=== PATIENT | female | born 1975 | race Caucasian/White ===

== ENCOUNTER 2023-10-04 08:46 | Emergency (ER) | payer OTHER, SELFPAY ==
[2023-10-04 08:50] VITALS: BP 130/102; PULSE 55; RESP 20; TEMP 36.7; O2SAT 99; BMI 46.1
[2023-10-04 08:56] VITALS: BP 140/80
--- NOTE | 2023-10-04 09:31 | CT_ITS ---
[place] [address], [place] [address] Patient Name: ESME ERICKSON MRN: [id number] date: 1975 Sex: F Assigned Patient Location: ER Current Patient Location: .[facility] Accession/Order Number: [id number] Exam Date: 10/04/2023 10:20 Report Date: 10/04/2023 10:52 At the request of: NICOLE STEVENS Procedure: CT abdomen pelvis w con EXAMINATION: CT abdomen pelvis w con HISTORY: abd pain , abdominal cramping, diarrhea, bloody stool COMPARISON: No relevant comparison available. TECHNIQUE: CT images were created with IV contrast. Axial, Coronal, and Sagittal images. Dose reduction techniques were achieved by using automated exposure control and/or adjustment of mA and/or kV according to patient size and/or use of iterative reconstruction technique. FINDINGS: LUNG BASES: No visible pulmonary or pleural disease. LIVER: No enlargement, atrophy, abnormal density, or significant focal lesion. BILIARY: No visible dilatation or calcification. PANCREAS: No lesion, fluid collection, ductal dilatation, or atrophy. SPLEEN: No enlargement or focal lesion. ADRENALS: No mass or enlargement. KIDNEYS: No mass, obstruction, or calcification. BOWEL/MESENTERY: Some mild wall thickening of the mid to distal transverse colon and descending colon, this part of the bowel is not distended nonobstructive bowel gas pattern. AORTA/VASCULAR: No aneurysm or dissection. RETROPERITONEUM: No mass or adenopathy. LYMPH NODES: No adenopathy. URINARY BLADDER: No visible focal wall thickening, lesion, or calculus. PELVIC ORGANS: Hysterectomy. 1.9 cm left adnexal cyst ABDOMINAL WALL: No mass or hernia. BONES: No bony lesion or fracture. OTHER: Negative. CT/CT abdomen pelvis w con IMPRESSION: Mild wall thickening of the transverse and descending colon. Consider inflammatory or infectious colitis Electronically authenticated by: ANTONI FERNANDEZ Date: 10/04/2023 10:52
[2023-10-04] MEDS: MORPHINE SULFATE 4 MG/ML VIAL IV (09:36)
[2023-10-04] MEDS: 0.9 % SODIUM CHLORIDE 1,000 ML 999 ML IV (09:36)
[2023-10-04] MEDS: ONDANSETRON PF 4 MG/2 ML VIAL IV (09:36)
[2023-10-04] MEDS: DICYCLOMINE HCL 20 MG/2 ML VIAL IM (09:37)
[2023-10-04 09:53] LABS: Basophils Absolute Auto 0.1 10^3/uL (0.0-0.1); Basophils Percent Auto 0.5 % (0.2-2.0); Eosinophils Absolute Auto 0.1 10^3/uL (0.0-0.7); Eosinophils Percent Auto 1.3 % (0.9-7.0); Hematocrit 41.7 % (36.0-48.0); Immature Granulocytes Abs Auto 0.03 10^3/uL (0.00-0.03); Immature Granulocytes Pct Auto 0.3 % (0.0-0.5); Lymphocytes Absolute Auto 1.9 10^3/uL (1.2-3.8); Lymphocytes Percent Auto 20.6 % (20.5-60.0); Mean Corpuscular HGB Conc 33.6 g/dL (29.9-35.2); Mean Corpuscular Hemoglobin 32.2 pg (26.7-34.0); Mean Corpuscular Volume 95.9 fL (81.0-99.0); Mean Platelet Volume 11.1 fL (9.5-13.5); Monocytes Absolute Auto 0.4 10^3/uL (0.3-0.8); Monocytes Percent Auto 4.8 % (1.7-12.0); Neutrophils Absolute Auto 6.7 10^3/uL (1.4-6.5); Neutrophils Percent Auto 72.5 % (43.0-75.0); Platelet Count 249 10^3/uL (150-450); Red Blood Count 4.35 10^6/uL (4.20-5.40); Red Cell Distribution Width 11.5 % (11.0-15.0); White Blood Count 9.2 10^3/uL (4.0-11.0)
[2023-10-04 10:06] LABS: Alanine Aminotransferase 23 U/L (14-59); Albumin Globulin Ratio 0.9; Albumin Level 3.5 g/dL (3.4-5.0); Alkaline Phosphatase 81 U/L (46-116); Aspartate Amino Transferase 12 U/L (15-37); BUN Creatinine Ratio 12.1; Bilirubin Total 0.5 mg/dL (0.2-1.0); Calcium 8.7 mg/dL (8.5-10.1); Chloride 104 mmol/L (98-107); Estimated GFR (African America >60 (>=60); Estimated GFR (Non-African Ame 55 (>=60); Globulin 3.7 g/dL; Glucose 92 mg/dL (74-106); Sodium 140 mmol/L (136-145); Total Protein 7.2 g/dL (6.4-8.2)
[2023-10-04 10:09] LABS: Lactate/Lactic Acid 1.5 mmol/L (0.4-2.0)
--- NOTE | 2023-10-04 10:37 | ED.GENADUL1 ---
HPI - General Adult General Chief complaint: Abdominal Pain Stated complaint: STOMACH PAIN Time Seen by Provider: 10/04/23 09:22 Source: patient Mode of arrival: walk-in Limitations: no limitations History of Present Illness HPI narrative: Patient is a 48-year-old female who is presenting to the ER today with chief complaint of 3 episodes of bloody stool. Patient's had no recent fall, traumas, no foreign bodies or any type of trauma to the anus. Patient is having intermittent abdominal cramping. No bowel movement yesterday, she did have soft stool 2 days ago. Mild nausea no vomiting. Patient does have her gallbladder, she does not have her appendix, uterus or ovaries. No fever or chills. No urinary frequency, urgency, burning. Patient did have bloody stools approximately 20 years ago, she had a colonoscopy at that time with no acute findings. Patient is having loose stool today. Patient has no hemorrhoids that she is aware of. No other acute complaints. All systems are negative except as noted/marked. All systems reviewed and otherwise negative. Nurses note and vital signs reviewed and patient is not hypoxic. General: The patient appears well and in no apparent distress. Patient is resting comfortably on cart. Patient is not toxic, lethargic, or listless Skin: Warm, dry, no pallor noted. There is no rash noted. No petechiae, purpura. Head: Normocephalic, atraumatic Eye: Normal conjunctiva, no drainage, EOMI. PERRL Ears, Nose, Mouth, and Throat: oral mucosa is moist. Nares patent. Mouth without vesicles. Cardiovascular: Regular Rate and Rhythm, no murmur, gallop, rub Respiratory: Patient is in no distress, no accessory muscle use, lungs are clear to auscultation, no wheezing, rales or rhonchi Back: non-tender, no CVA tenderness bilaterally to percussion. No CT LS midline pain GI: Obese, soft, mild diffuse tenderness to palpation, hypoactive bowel sounds x 4, no suprapubic tenderness to palpation, no masses appreciated. No rebound, guarding, or rigidity noted. No distention Musculoskeletal: Patient has full range of motion of all of the extremities, no motor, sensory, or focal neurological deficits Neurological: A&O x4, normal speech Psychiatric: Cooperative Related Data Home Medications Medication Instructions Recorded Confirmed atenolol 50 mg tablet 50 mg PO Q24H 10/04/23 10/04/23 cholecalciferol (vitamin D3) 125 10,000 unit PO DAILY 10/04/23 10/04/23 mcg (5,000 unit) capsule famotidine 20 mg tablet 20 mg PO Q12H 10/04/23 10/04/23 levothyroxine 25 mcg tablet 25 mcg PO DAILY 10/04/23 10/04/23 loratadine 10 mg tablet (Claritin) 10 mg PO DAILY 10/04/23 10/04/23 Previous Rx's Medication Instructions Recorded dicyclomine 20 mg tablet 20 mg PO TID PRN abdominal pain #7 10/04/23 tabs ondansetron 4 mg disintegrating 4 mg PO Q4H PRN nausea and 10/04/23 tablet vomiting 3 days #6 tabs Allergies Allergy/AdvReac Type Severity Reaction Status Date / Time gabapentin [From Neurontin] Allergy Intermediate Verified 10/04/23 08:54 PFSH PFSH Social History Smoking status: Former smoker Exam Constitutional Vital Signs, click to edit/add: Last Vital Signs Temp 98.1 F 10/04/23 08:50 Pulse 55 L 10/04/23 08:50 Resp 20 10/04/23 08:50 BP 140/80 10/04/23 08:56 Pulse Ox 99 10/04/23 08:50 O2 Del Method Room Air 10/04/23 08:50 Course Vital Signs Vital signs: Vital Signs Temperature 98.1 F 10/04/23 08:50 Pulse Rate 55 L 10/04/23 08:50 Respiratory Rate 20 10/04/23 08:50 Blood Pressure 130/102 H 10/04/23 08:50 Pulse Oximetry 99 10/04/23 08:50 Oxygen Delivery Method Room Air 10/04/23 08:50 Temperature 98.1 F 10/04/23 08:50 Pulse Rate 55 L 10/04/23 08:50 Respiratory Rate 20 10/04/23 08:50 Blood Pressure 140/80 10/04/23 08:56 Pulse Oximetry 99 10/04/23 08:50 Oxygen Delivery Method Room Air 10/04/23 08:50 Medical Decision Making MDM Narrative Medical decision making narrative: Rectal exam: Chio HERNANDEZ was at bedside during the entire exam. Patient has 2 very small tiny hemorrhoids at the 6:00 and 8 o'clock position, no signs of fissure, fistula, no tears, no signs of trauma. No stool was obtained during rectal exam, Hemoccult was done. CT of the abdomen pelvis shows questionable infectious versus inflammatory colitis. Lab work, urine, lab testing shows no acute findings. Patient was given a copy of her CT report. There is no acute indication for steroids or antibiotics at this time. Patient will follow-up with PCP, patient has been referred to Dr. Sanders as well. At discharge patient abdomen is soft, mild diffuse tenderness palpation, no other acute findings, patient understands discharge plan in summary Lab Data Labs: Lab Results 10/04/23 10/04/23 Range/Units 09:44 10:07 WBC 9.2 (4.0-11.0) 10^3/uL RBC 4.35 (4.20-5.40) 10^6/uL Hgb 14.0 (12.0-16.0) g/dL Hct 41.7 (36.0-48.0) % MCV 95.9 (81.0-99.0) fL MCH 32.2 (26.7-34.0) pg MCHC 33.6 (29.9-35.2) g/dL RDW 11.5 (11.0-15.0) % Plt Count 249 (150-450) 10^3/uL MPV 11.1 (9.5-13.5) fL Neut % (Auto) 72.5 (43.0-75.0) % Lymph % (Auto) 20.6 (20.5-60.0) % [place] % (Auto) 4.8 (1.7-12.0) % Eos % (Auto) 1.3 (0.9-7.0) % Baso % (Auto) 0.5 (0.2-2.0) % Neut # (Auto) 6.7 H (1.4-6.5) 10^3/uL Lymph # (Auto) 1.9 (1.2-3.8) 10^3/uL [place] # (Auto) 0.4 (0.3-0.8) 10^3/uL Eos # (Auto) 0.1 (0.0-0.7) 10^3/uL Baso # (Auto) 0.1 (0.0-0.1) 10^3/uL Abs Immat Gran (auto) 0.03 (0.00-0.03) 10^3/uL Imm/Tot Granulo (auto) 0.3 (0.0-0.5) % Sodium 140 (136-145) mmol/L Potassium 4.0 (3.5-5.1) mmol/L Chloride 104 (98-107) mmol/L Carbon Dioxide 30.0 (21.0-32.0) mmol/L Anion Gap 10.0 BUN 13.0 (7.0-18.0) mg/dL Creatinine 1.07 H (0.55-1.02) mg/dL Est GFR ( Amer) >60 (>=60) Est GFR (Non-Af Amer) 55 L (>=60) BUN/Creatinine Ratio 12.1 Glucose 92 (74-106) mg/dL Lactate 1.5 (0.4-2.0) mmol/L Calcium 8.7 (8.5-10.1) mg/dL Total Bilirubin 0.5 (0.2-1.0) mg/dL AST 12 L (15-37) U/L ALT 23 (14-59) U/L Alkaline Phosphatase 81 (46-116) U/L Total Protein 7.2 (6.4-8.2) g/dL Albumin 3.5 (3.4-5.0) g/dL Globulin 3.7 g/dL Albumin/Globulin Ratio 0.9 Lipase 22.0 (16.0-77.0) U/L Urine Color Lt. yellow (YELLOW) Urine Clarity Clear (CLEAR) Urine pH 7.0 (5.0-9.0) Ur Specific [place] 1.015 (1.005-1.025) Urine Protein Negative (NEG/TRACE) mg/dL Urine Glucose (UA) Negative (NEGATIVE) mg/dL Urine Ketones Negative (NEGATIVE) mg/dL Urine Occult Blood Negative (NEGATIVE) Urine Nitrite Negative (NEGATIVE) Urine Bilirubin Negative (NEGATIVE) Urine Urobilinogen 0.2 (0.2-1.0) EU/dL Ur Leukocyte Esterase Negative (NEGATIVE) Urine RBC None seen (0-2) #/HPF Urine WBC None seen (NONE SEEN) #/HPF Ur Squamous Epith Cells Few A (NONE/RARE) #/LPF Urine Crystals None seen (None Seen) #/HPF Urine Bacteria Trace A (NONE SEEN) #/HPF Urine Casts None seen (NONE SEEN) #/LPF Urine Mucus None seen (NONE SEEN) Discharge Plan Discharge Chief Complaint: Abdominal Pain Clinical Impression: Colitis, External hemorrhoid, Rectal bleeding, Abdominal pain Patient Disposition: Home, Self-Care Condition: Fair Prescriptions / Home Meds: New dicyclomine 20 mg tablet 20 mg PO TID PRN (Reason: abdominal pain) Qty: 7 0RF ondansetron 4 mg tablet,disintegrating 4 mg PO Q4H PRN (Reason: nausea and vomiting) 3 Days Qty: 6 0RF No Action atenolol 50 mg tablet 50 mg PO Q24H cholecalciferol (vitamin D3) 125 mcg (5,000 unit) capsule 10,000 unit PO DAILY famotidine 20 mg tablet 20 mg PO Q12H levothyroxine 25 mcg tablet 25 mcg PO DAILY loratadine [Claritin] 10 mg tablet 10 mg PO DAILY Instructions: Hemorrhoids (ED), Rectal Bleeding (ED), Abdominal Pain (ED), Colitis (ED) Additional Instructions: Increase fluid at home. No acute indication for antibiotics or steroids at this time. Follow-up with your PCP, Dr. Burch has also been referred to you as well if you need to have another colonoscopy. Use Zofran for nausea and Bentyl for abdominal cramping if needed. He had 2 very small tiny hemorrhoids externally, education was given to you. Follow up with your PCP if any other acute concerns. Referrals: ENRRIQUE BARRIOS [Primary Care Provider] - 1 week Stand Alone Forms: Portal Instructions
[2023-10-04 10:39] LABS: Bilirubin Urine NEGATIVE (NEGATIVE); Blood Urine NEGATIVE (NEGATIVE); Clarity Urine CLEAR (CLEAR); Color Urine LT. YELLOW (YELLOW); Glucose Urine UA NEGATIVE (NEGATIVE); Ketones Urine NEGATIVE (NEGATIVE); Leukocyte Esterase Urine NEGATIVE (NEGATIVE); Nitrite Urine NEGATIVE (NEGATIVE); Protein Urine NEGATIVE (NEG/TRACE); Specific Gravity Urine 1.015 (1.005-1.025); Urobilinogen Urine 0.2 EU/dL (0.2-1.0)
[2023-10-04 10:44] LABS: Bacteria Urine TRACE #/HPF (NONE SEEN); Cast Seen? NONE SEEN #/LPF (NONE SEEN); Crystals Seen? None Seen #/HPF (None Seen); Mucus Urine NONE SEEN (NONE SEEN); RBC Urine NONE SEEN #/HPF (0-2); Squamous Epithelial Cell Urine FEW #/LPF (NONE/RARE); WBC Urine NONE SEEN #/HPF (NONE SEEN)
== END 2023-10-04 12:23 | disposition home or self-care (01) ==
PROVIDERS: Emergency Provider Emergency Medicine; PCP Nurse Practitioner Family
DX: K52.9 Noninfective gastroenteritis and colitis, unspecified (principal); K64.4 Residual hemorrhoidal skin tags; R10.9 Unspecified abdominal pain; K62.5 Hemorrhage of anus and rectum; Z79.899 Other long term (current) drug therapy; Z79.890 Hormone replacement therapy; Z87.891 Personal history of nicotine dependence
CPT/HCPCS: 36415; 74177; 80053; 81001; 83605; 83690; 85025; 96361; 96372; 96374; 96375; 99285; J0500; Q9967

== ENCOUNTER 2025-03-24 08:42 | Outpatient (OUT) | payer OTHER, SELFPAY ==
--- NOTE | 2025-03-24 08:52 | US_ITS ---
The [address] [address] Patient Name: ESME ERICKSON MRN: [id number] date: 1975 Sex: F Assigned Patient Location: US Current Patient Location: US Accession/Order Number: [id number] Exam Date: 03/24/2025 12:48 Report Date: 03/24/2025 12:48 At the request of: HUMBERTO SINCLAIR NP Procedure: US renal BI Bilateral Renal Ultrasound HISTORY: Bilateral flank pain greater on the right COMPARISON: None RIGHT kidney measures 10.8 cm. LEFT kidney measures 11.4 cm. Hydronephrosis: None RENAL STONE: No shadowing renal calculus is seen. RENAL LESIONS: No renal lesion identified. URINARY BLADDER: Unremarkable REPRODUCTIVE STRUCTURES Not assessed IMPRESSION : No hydronephrosis. Impression dictated by: Brooks Morillo M.D. 03/24/2025 12:48 PM Dictation Location: [place] [address] Electronically authenticated by: [id number] Y Date: 03/24/2025 12:48
--- OUTSIDE RECORDS SUMMARY | 2025-03-24 08:53 | XMS_ITS | CCD ---
Author Organization [facility]ini[facility]ms Care Team Providers Care Front Desk Name Role Phone KAJAL CHIN Consulting Unavailable KAJAL CHIN Attending Unavailable DR NORMA DRAKE Primary Care Unavailable KAJAL CHIN Admitting Unavailable THEO LÓPEZ Unavailable Lillianalong Asher ACEVES Primary Care Provider DEYANIRA AGUILAR Attending Unavailable ASHER MAE Primary Care Unavailab le Asher Mae DO Primary Care Provider NORMA DRAKE Attending Unavailable LILLIANALONGASHER Referring Unavailable FURLONG, ASHER G Primary Care Unavailable NIECY NATHAN Attending Unavailable NORMA DRAKE Referring Unavailable FURLONG, ASHER G Primary Care Unavailable FURLONG, ASHER Proctor Referring Unavailable FURLONG, ASHER G Primary Care Unavailable FURLONGASHER G Attending Unavailable LILLIANALONGASHER G Attending Unavailable LILLIANALONG, ASHER G Referring Unavailable FURLONG, ASHER G Primary Care Unavailable ELENA BOYD Attending Unavailable PAULIENGASHER G Referring Unavailable FURLONG, ASHER G Primary Care Unavailable NORMA DRAKE Referring Unavailable FURLONG, ASHER G Primary Care Unavailable FURLONG, ASHER G Referring Unavailable FURLONG, ASHER G Primary Care Unavailable ELENA BOYD Referring Unavailable FURLONG, ASHER G Primary Care Unavailable FURLONG, ASHER G Referring Unavailable FURLONG, ASHER G Primary Care Unavailable CHATO LANE Admitting Unavailable CHATO LANE Attending Unavailable CHATO LANE Referring Unavailable LILLIANALONG, ASHER G Primary Care Unavailable CHATO LANE Attending Unavailable CHATO LANE Referring Unavailable FURLONG, ASHER G Primary Care Unavailable ANTONI MENCHACA Attending Unavailable FURLONG, ASHER G Primary Care Unavailable FURLONG, ASHER G Primary Care Unavailable GONZALEZ FREEMAN Attending Unavailable Asher Mae DO Primary Care Provider AYAKA PRESTON Primary Care Unavailable Allergies Allergy Classification Reported Allergen(s) Allergy Type Date of Onset Reaction(s) Facility (1 source) gabapentin Drug Allergy [facility] Repository (20 sources) gabapentin; Translations: [GABAPENTIN] Drug Allergy Swelling, Facial Swelling [facility] Medications Current Medications Medication Drug Class(es) Dates Sig (Normalized) Sig (Original) atenolol 25 mg oral tablet (20 sources) beta-Adrenergic Ramiro Start: 11-15-2024 take 1 tablet by mouth once daily in the morning atenoloL (TENORMIN) 25 mg tablet TAKE 1 TABLET BY MOUTH ONCE DAILY IN THE MORNING 90 tablet 11/15/2024 Active Start: 07-06-2024 End: 11-15-2024 take 1 tablet by mouth in the morning atenoloL (TENORMIN) 25 mg tablet Take 1 tablet (25 mg total) by mouth in the morning. 90 tablet 07/06/2024 11/15/2024 Discontinued Start: 04-08-2024 End: 07-06-2024 take 0.5 tablet by mouth in the morning atenoloL (TENORMIN) 50 mg tablet Take 0.5 tablets (25 mg total) by mouth in the morning. 04/08/2024 07/06/2024 Discontinued (Reorder) Start: 06-24-2023 End: 04-08-2024 take 1 tablet by mouth in the morning atenoloL (TENORMIN) 50 mg tablet take 1 tablet by mouth in the morning 30 tablet 5 12/30/2023 04/08/2024 Discontinued cholecalciferol 0.125 mg oral capsule (20 sources) Vitamin D Start: 05-06-2023 take 2 capsules by mouth once daily cholecalciferol, vitamin D3, (VITAMIN D3) 5,000 units capsule Indications: Vitamin D deficiency, unspecified TAKE 2 CAPSULES BY MOUTH EVERY DAY 200 capsule 3 05/06/2023 Active Start: 05-06-2023 take 2 capsules by m outh once daily cholecalciferol (Vitamin D-3) 125 mcg (5000 UT) capsule Take 2 capsules (250 mcg) by mouth once daily. 05/06/2023 Active Start: 10-23-2022 End: 10-28-2023 take 1 capsule by mouth in the morning cholecalciferol, vitamin D3, 2,000 units capsule Take 1 capsule (2,000 Units total) by mouth in the morning. 100 capsule 3 10/23/2022 10/28/2023 Discontinued (Dose adjustment) famotidine 20 mg oral tablet (20 sources) Histamine-2 Receptor Antagonist Start: 06-24-2023 End: 07-06-2024 take 1 tablet by mouth in the morning, then take 1 tablet by mouth at bedtime, then take 1 tablet by mouth twice daily at bedtime famotidine (PEPCID) 20 mg tablet Take 1 tablet (20 mg total) by mouth in the morning and 1 tablet (20 mg total) before bedtime. TAKE 1 TABLET BY MOUTH TWICE DAILY (IN THE MORNING AND BEFORE BEDTIME). 60 tablet 5 07/06/2024 Active levothyroxine sodium 0.025 mg oral tablet (20 sources) l-Thyroxine Start: 11-16-2024 take 1 tablet by mouth in the morning levothyroxine (SYNTHROID, LEVOTHROID) 25 MCG tablet Take 1 tablet (25 mcg total) by mouth in the morning. 90 tablet 1 11/16/2024 Active Start: 06-24-2023 End: 11-16-2024 take 1 tablet by mouth in the morning levothyroxine (SYNTHROID, LEVOTHROID) 25 MCG tablet Take 1 tablet (25 mcg total) by mouth in the morning. 90 tablet 1 05/03/2024 11/16/2024 Discontinued (Reorder) loratadine 10 mg oral tablet (19 sources) Start: 06-24-2023 End: 07-06-2024 take 1 tablet by mouth in the morning loratadine (CLARITIN) 10 mg tablet Take 1 tablet (10 mg total) by mouth in the morning. 90 tablet 3 07/06/2024 Active nirmatrelvir-ritonavir (PAXLOVID) tablets (1 source) Start: 04-08-2024 End: 04-13-2024 nirmatrelvir-riton avir (PAXLOVID) tablets Take 3 tablets by mouth in the morning and 3 tablets before bedtime. Do all this for 5 days. For doses of 3 tablets - Take two 150 mg nirmatrelvir (pink) tablets at the same time as one 100 mg ritonavir (white) tablet per dose.. 30 tablet 04/08/2024 04/13/2024 Active sod sulf-pot chloride-mag sulf 1.479-0.188- 0.225 gram tablet (2 sources) Start: 11-18-2023 sod sulf-pot chloride-mag sulf 1.479-0.188- 0.225 gram tablet Indications: Colitis with rectal bleeding Please see instructional sheet given by physicians office. 24 tablet 11/18/2023 Active sulfamethoxazole 800 mg / trimethoprim 160 mg oral tablet (2 sources) Dihydrofolate Reductase Inhibitor Antibacterial, Sulfonamide Antimicrobial Start: 08-02-2024 End: 08-09-2024 take 1 tablet by mouth once in the morning sulfamethoxazole-t rimethoprim (BACTRIM DS) 800-160 mg per tablet Indications: Acute cystitis without hematuria Take 1 tablet by mouth in the morning and 1 tablet before bedtime. Do all this for 7 days. 14 tablet 08/02/2024 08/09/2024 Active Start: 02-19-2024 End: 02-22-2024 take 1 tablet by mouth once in the morning sulfamethoxazole-trimethoprim (BACTRIM D S) 800-160 mg per tablet Take 1 tablet by mouth in the morning and 1 tablet before bedtime. Do all this for 3 days. 6 tablet 02/19/2024 02/22/2024 Active vitamin b12 1 mg oral tablet (16 sources) Vitamin B12 Start: 10-29-2023 take 1 tablet by mouth in the morning cyanocobalamin (vitamin B-12) 1000 MCG tablet Indications: Vitamin B12 deficiency Take 1 tablet (1,000 mcg total) by mouth in the morning. 100 tablet 3 10/29/2023 Active Completed/Discontinued Medications Medication Drug Class(es) Dates Sig (Normalized) Sig (Original) dicyclomine hydrochloride 20 mg oral tablet (14 sources) Anticholinergic Start: 10-04-2023 End: 08-02-2024 dicyclomine (BENTYL) 20 mg tablet 10/04/2023 08/02/2024 Discontinued ondansetron 4 mg disintegrating oral tablet (14 sources) Serotonin-3 Receptor Antagonist Start: 10-04-2023 End: 08-02-2024 ondansetron ODT (ZOFRAN ODT) 4 mg disintegrating tablet DISSOLVE ONE TABLET ON THE TONGUE EVERY 4 HOURS NEEDED FOR 3 DAYS 10/04/2023 08/02/2024 Discontinued (Therapy completed) Problems Active Problems Problem Classification Problem Date Documented Da te Episodic/Chronic Anxiety disorders (20 sources) Generalized anxiety disorder; Translations: [Generalized anxiety disorder] Onset: 3 10-07-2022 Chronic Cardiac dysrhythmias (4 sources) Supraventricular tachycardia; Translations: [SVT (supraventricular tachycardia) ([facility])] Onset: 4 07-16-2024 Chronic Gastrointestinal hemorrhage (1 source) Gastrointestinal hemorrhage Onset: Genitourinary symptoms and ill-defined conditions (8 sources) Dysuria; Translations: [Dysuria] Onset: 4 08-02-2024 Episodic Mood disorders (17 sources) Bipolar II disorder; Translations: [Bipolar II disorder] Onset: 3 10-07-2022 Chronic Nutritional deficiencies (20 sources) Vitamin D deficiency; Translations: [Vitamin D deficiency, unspecified] Onset: 7 04-30-2022 Chronic Other nervous system disorders (2 sources) Polyneuropathy, unspecified; Translations: [Polyneuropathy, unspecified] Onset: 4 Chronic Other nervous system disorders (1 source) Neuropathy; Translations: [Polyneuropathy, unspecified] 10-28-2023 Chronic Other nutritional; endocrine; and metabolic disorders (2 sources) Body mass index 40+ - severely obese; Translations: [Body mass index (BMI) 40.0-44.9, adult] Onset: 4 07-16-2024 Chronic Other nutritional; endocrine; and metabolic disorders (2 sources) Body mass index (BMI) 40.0-44.9, adult; Translations: [Body mass index (BMI) 40.0-44.9, adult (Multi)] Onset: 4 Chronic Other nutritional; endocrine; and metabolic disorders (18 sources) Morbid obesity; Translations: [Morbid (severe) obesity due to excess calories] Onset: 3 10-24-2022 Chronic Other nutritional; endocrine; and metabolic disorders (1 source) Morbid (severe) obesity due to excess calories; Translations: [Morbid (severe) obesity due to excess calories] Onset: 3 Chronic Residual codes; unclassified (1 source) Acquired absence of both cervix and uterus; Translations: [ACQUIRED ABSENCE BOTH CERVIX AND UTERUS] Onset: 3 Episodic Screening and history of mental health and substance abuse codes (4 sources) Ex-smoker; Translations: [Personal history of nicotine dependence] Onset: 4 07-16-2024 Episodic Thyroid disorders (20 sources) Subclinical hypothyroidism; Translations: [Other specified hypothyroidism] Onset: 9 08-02-2024 Chronic Unclassified (2 sources) LOW BACK PAIN, UNSPECIFIED; Translations: [LOW BACK PAIN, UNSPECIFIED] Onset: 3 Unclassified (1 source) Supraventricular tachycardia, unspecified (CMS-HCC); Translations: [Supraventricular tachycardia, unspecified (CMS-HCC)] Onset: 4 Unclassified (1 source) Annual Exam Onset: 4 Urinary tract infections (5 sources) Acute cystitis; Translations: [Acute cystitis without hematuria] Onset: 4 08-02-2024 Episodic Past or Other Problems Problem Classification Problem Date Documented Da te Episodic/Chronic Abdominal pain (2 sources) Lower abdominal pain, unspecified; Translations: [Lower abdominal pain] Onset: 4 11-18-2023 Episodic Cardiac dysrhythmias (20 sources) Sinus bradycardia; Translations: [Bradycardia, unspecified] Onset: 8 07-16-2024 Episodic Gastrointestinal hemorrhage (3 sources) Rectal hemorrhage; Translations: [Hemorrhage of anus and rectum] Onset: 4 Episodic Mood disorders (17 sources) Mood disorders Onset: 3 Resolved: 4 10-28-2023 Noninfectious gastroenteritis (4 sources) Noninfective gastroenteritis and colitis, unspecified; Translations: [Colitis] Onset: 4 10-28-2023 Episodic Nutritional deficiencies (16 sources) Cobalamin deficiency; Translations: [Deficiency of other specified B group vitamins] Onset: 4 10-29-2023 Episodic Other and unspecified benign neoplasm (1 source) Polyp of colon; Translations: [Polyp of colon] Onset: 4 Episodic Other gastrointestinal disorders (17 sources) Chronic constipation; Translations: [Other constipation] Onset: 2 04-30-2022 Episodic Spondylosis; intervertebral disc disorders; other back problems (18 sources) Lumbago with sciatica, left side; Translations: [Sciatica] Onset: 2 04-30-2022 Episodic Unclassified (1 source) LOW BACK PAIN, UNSPECIFIED; Translations: [LOW BACK PAIN, UNSPECIFIED] Onset: 3 Unclassified (1 source) Supraventricular tachycardia, unspecified (CMS-HCC); Translations: [Supraventricular tachycardia, unspecified (CMS-HCC)] Onset: 4 Unclassified (16 sources) Onset: 4 Resolved: 4 08-02-2024 Viral infection (1 source) Disease caused by 2019-nCoV; Translations: [COVID-19] 04-08-2024 Episodic Results Test Name Value Interpretation Reference Range Facility Provider Letteron 01-04-2025 Provider Letter Provider Letter January 04, 2025 [place] [address] : 1975 Dear Esme Loza, We have been trying to reach you with no success. It is important that you return our call regarding your Referral from your primary care provider upon receiving this letter. Also, at the time of your call, please provide us with your current information. Thank you for your prompt attention to this matter. Sincerely, [facility] [address] Normal [facility] URINE CULTUREon 09-25-2024 Bacteria identified Cx Nom (U) CULTURE RESULTS >100,000 ORGANISMS/mL ESCHERICHIA COLI [ S = SUSCEPTIBLE R = RESISTANT I = INTERMEDIATE S-DO = Susceptible-dose dependent NS = Non-suscceptible NO = No Interpretation ] Organism: ESCHERICHIA COLI Antibiotic Interpretation KAREN Status AMPICILLIN R >=32 F AMP/SULBACTAM I 16/8 F CEFAZOLIN S <=4 F CEFTRIAXONE S <=0.25 F CIPROFLOXACIN S <=0.25 F GENTAMICIN S <=1 F LEVOFLOXACIN S <=0.12 F NITROFURANTOIN S <=16 F PIPERACIL/TAZOBACTAM S <=4 F TOBRAMYCIN S <=1 F TRIMETH/SULFAMETHOXAZOLE S <=1/19 F Susceptible [facility] Comment on above: Performed By: #### 6 30-4 #### [facility] ([id number]) [address] [place] [address], [address] [place] [address] URN MACROSCOPIC NURon 2024 BILIRUBIN NICK Negative Normal NEG [facility] Comment on above: Performed By: #### N UM #### [facility] ([id number]) [address] [place] [address] BLOOD/HGB NICK Trace Abnormal NEG [facility] Comment on above: Performed By: #### N UM #### [facility] ([id number]) [address] [place] [address] [place] [address] GLUCOSE NICK Negative Normal NEG [facility] Comment on above: Performed By: #### N UM #### [facility] ([id number]) [address] [place] [address] [place] [address] KETONES NICK Negative Normal NEG [facility] Comment on above: Performed By: #### N UM #### [facility] ([id number]) [address] [place] [address] [place] [address] LEUKOCYTE ESTERASE NICK Small Abnormal NEG [facility] Comment on above: Performed By: #### N UM #### [facility] ([id number]) [address] [place] [address] [place] [address] NITRITE NICK Negative Normal NEG [facility] Comment on above: Performed By: #### N UM #### [facility] ([id number]) [address] [place] [address] [place] [address] PH NICK 6.0 Normal 5.0-8.5 [facility] Comment on above: Performed By: #### N UM #### [facility] ([id number]) [address] [place] [address] PROTEIN NICK Negative Normal NEG [facility] Comment on above: Performed By: #### N UM #### [facility] ([id number]) [address] [place] [address] SPECIFIC GRAVITY NICK 1.015 Normal 1.003-1.035 [facility] Comment on above: Performed By: #### N UM #### [facility] ([id number]) [address] [place] [address] UROBILINOGEN NICK 0.2 eu/dL Normal <1.1 [facility] Comment on above: Performed By: #### N UM #### [facility] ([id number]) [address] [place] [address] POCT urinalysis dipstick onl yon 08-02-2024 Appearance (U) clear [facility] Urine Bilirubin Negative [facility] Urine Blood Trace [facility] Urine Color yellow [facility] Urine Glucose Negative [facility] Urine Ketones Negative [facility] Urine Leukocyte Esterase Trace [facility] Urine Nitrite Negative [facility] Urine Ph 6 [facility] Urine Protein Negative [facility] Urine Specific [place] 1.025 [facility] Urine Urobilinogen 0.2 [facility] THYROID PROFILEon 08-02-2024 Free T4 [Mass/Vol] 0.81 ng/dL Normal 0.61-1.60 [facility] Comment on above: Performed By: #### T HYR #### [facility] ([id number]) [address], [address] [place] [address] TSH 2.45 uIU/mL Normal 0.49-4.67 Comment on above: Performed By: #### T HYR #### [facility] ([id number]) [address], [address] [place] [address] URINE CULTUREon 08-02-2024 Bacteria identified Cx Nom (U) CULTURE RESULTS >100,000 ORGANISMS/mL ESCHERICHIA COLI [ S = SUSCEPTIBLE R = RESISTANT I = INTERMEDIATE S-DO = Susceptible-dose dependent NS = Non-suscceptible NO = No Interpretation ] Organism: ESCHERICHIA COLI Antibiotic Interpretation KAREN Status AMPICILLIN S 4 F AMP/SULBACTAM S <=2/1 F CEFAZOLIN S <=4 F CEFTRIAXONE S <=0.25 F CIPROFLOXACIN S <=0.25 F GENTAMICIN S <=1 F LEVOFLOXACIN S <=0.12 F NITROFURANTOIN S <=16 F PIPERACIL/TAZOBACTAM S <=4 F TOBRAMYCIN S <=1 F TRIMETH/SULFAMETHOXAZOLE S <=1/19 F Susceptible Comment on above: Performed By: #### 6 30-4 #### [facility] ([id number]) [address], [address] [place] [address] ECG 12 Leadon 07-16-2024 Sinus bradycardia wi th heart rate of 47. Normal [place] interval ,QTc interval and QRS duration [facility] Work Phone: POCT urinalysis dipstick onl yOrdered By: Renay Gaines on 02-16-2024 Appearance (U) cloudy [facility] Urine Bilirubin Negative [facility] Urine Blood Moderate [facility] Urine Color yellow [facility] Urine Glucose Negative [facility] Urine Ketones Negative [facility] Urine Leukocyte Esterase 1+ [facility] Urine Nitrite Negative [facility] Urine Ph 5.5 [facility] Urine Protein Negative [facility] Urine Specific [place] 1.025 [facility] Urine Urobilinogen 0.2 [facility] URINE CULTUREon 02-16-2024 Bacteria identified Cx Nom (U) CULTURE RESULTS 10,000 to 50,000 ORGANISMS/mL ESCHERICHIA COLI [ S = SUSCEPTIBLE R = RESISTANT I = INTERMEDIATE S-DO = Susceptible-dose dependent NS = Non-suscceptible NO = No Interpretation ] Organism: ESCHERICHIA COLI Antibiotic Interpretation KAREN Status AMPICILLIN S 4 F AMP/SULBACTAM S <=2/1 F CEFAZOLIN S <=4 F CEFTRIAXONE S <=1 F CIPROFLOXACIN S <=0.25 F GENTAMICIN S <=1 F LEVOFLOXACIN S <=0.12 F NITROFURANTOIN S 32 F PIPERACIL/TAZOBACTAM S <=4 F TOBRAMYCIN S <=1 F TRIMETH/SULFAMETHOXAZOLE S <=1/19 F Susceptible Comment on above: Performed By: #### 6 30-4 #### [facility] ([id number]) [address] [place] [address], [address] [place] [address] Surgical Pathologyon 024 Surgical Pathology Normal [facility] Comment on above: Result Comment: [facility] [address] [place] [address] Surgical Pathology Consultation Patient Name:ESME LOZA:1975 (Age: 48)Gender:FTaken:4Reported:12/03/2023hysician(s):Chato Lane D.O. ([phone])Copy To: Rec. #:[id number]: #[id number] Final Pathologic Diagnosis Hepatic flexure polyp x2, biopsy: Sessile serrated lesions; negative for dysplasia. Report Electronically Signed Out 12/03/2023Anton Antonio MD Interpretation performed at [email or web address], [address] [place] [address], License number: [id number]. Clinical History Colitis, rectal bleeding. Gross Description Received in formalin labeled GEORGINA, hepatic are 8 pale-pearson delicate soft tissue fragments, 0.1-0.9 cm in greatest dimension. The specimens are filtered and submitted in single cassette. (1,ns,[id number], m4) TB tgb/12/02/2023WAK Specimen(s) Received Hepatic flexure polyp x2 Fee Codes(s): 1; 31141 CBC AND AUTO DIFFon 10-28-19 ABSOLUTE BASOPHIL 0.0 X10E9/L Normal 0.0-0.2 [facility] Comment on above: Performed By: #### C BCA, CMP, 30189-8, THYR, 78845-7, 2132-04 #### [facility] ([id number]) [address], [address] [place] [address] ABSOLUTE NEUTROPHIL 2.5 X10E9/L Normal 1.5-6.6 [facility] Comment on above: Performed By: #### C BCA, CMP, 65928-2, THYR, 40879-0, 2132-04 #### [facility] ([id number]) [address], [address] [place] [address] Basophils/100 WBC (Bld) 0.4 % Normal Comment on above: Performed By: #### C BCA, CMP, 51001-0, THYR, , 2132-04 #### [facility] ([id number]) [address], [address] [place] [address] Eosinophils (Bld) [#/Vol] 0.1 10*3/uL Normal 0.0-0.4 Comment on above: Performed By: #### C BCA, CMP, 16919-2, THYR, 70818-1, 2132-04 #### [facility] ([id number]) [address], [address] [place] [address] Eosinophils/100 WBC (Bld) 2.7 % Normal Comment on above: Performed By: #### C BCA, CMP, 63540-0, THYR, 75605-0, 2132-04 #### [facility] ([id number]) [address], [address] [place] [address] Erythrocyte distribution width (RBC) [Ratio] 12.6 % Normal 11.5-15.0 Comment on above: Performed By: #### C BCA, CMP, 73745-3, THYR, 41190-7, 2132-04 #### [facility] ([id number]) [address], [address] [place] [address] Hematocrit (Bld) [Volume fraction] 39.8 % Normal 35-47 Comment on above: Performed By: #### C BCA, CMP, 42358-8, THYR, 50069-5, 2132-04 #### [facility] ([id number]) [address], [address] [place] [address] Hemoglobin (Bld) [Mass/Vol] 13.8 g/dL Normal 11.7-15.5 Comment on above: Performed By: #### C BCA, CMP, 96984-4, THYR, 01422-3, 2132-04 #### [facility] ([id number]) [address], [address] [place] [address] Lymphocytes (Bld) [#/Vol] 1.7 10*3/uL Normal 1.0-3.5 Comment on above: Performed By: #### C BCA, CMP, 48871-2, THYR, 20414-5, 2132-04 #### [facility] ([id number]) [address] [place] [address] Lymphocytes/100 WBC (Bld) 37.4 % Normal Comment on above: Performed By: #### C BCA, CMP, 95852-6, THYR, 12199-4, 2132-04 #### [facility] ([id number]) [address], [address] [place] [address] MCH (RBC) [Entitic mass] 33.4 pg Normal 27-34 Comment on above: Performed By: #### C BCA, CMP, 35308-4, THYR, 99270-0, 2132-04 #### [facility] ([id number]) [address], [address] [place] [address] MCHC (RBC) [Mass/Vol] 34.6 g/dL Normal 32-36 Comment on above: Performed By: #### C BCA, CMP, 05842-2, THYR, 17569-9, 2132-04 #### [facility] ([id number]) [address], [address] [place] [address] MCV (RBC) [Entitic vol] 96 fL Normal 80-100 Comment on above: Performed By: #### C BCA, CMP, 26599-7, THYR, 41390-7, 2132-04 #### [facility] ([id number]) [address], [address] [place] [address] Monocytes (Bld) [#/Vol] 0.3 10*3/uL Normal 0-0.9 Comment on above: Performed By: #### C BCA, CMP, 20430-9, THYR, 22395-5, 2132-04 #### [facility] ([id number]) [address], [address] [place] [address] Monocytes/100 WBC (Bld) 5.9 % Normal Comment on above: Performed By: #### C BCA, CMP, 64644-8, THYR, , 2132-04 #### [facility] ([id number]) [address], [address] [place] [address] Neutrophils/100 WBC (Bld) 53.6 % Normal Comment on above: Performed By: #### C BCA, CMP, 96284-9, THYR, 58046-8, 2132-04 #### [facility] ([id number]) [address], [address] [place] [address] Platelet mean volume (Bld) [Entitic vol] 10.2 fL Normal 7-12 Comment on above: Performed By: #### C BCA, CMP, 07119-9, THYR, 77354-8, 2132-04 #### [facility] ([id number]) [address], [address] [place] [address] Platelets (Bld) [#/Vol] 203 10*3/uL Normal 150-450 Comment on above: Performed By: #### C BCA, CMP, 46335-0, THYR, 59714-1, 2132-04 #### [facility] ([id number]) [address], [address] [place] [address] RBC COUNT 4.13 X10E12/L Normal 3.80-5.20 Comment on above: Performed By: #### C BCA, CMP, 92315-3, THYR, 86104-6, 2132-04 #### [facility] ([id number]) [address], [address] [place] [address] WBC (Bld) [#/Vol] 4.6 10*3/uL Normal 4.0-11.0 [facility] Comment on above: Performed By: #### C BCA, CMP, 64977-8, THYR, 90050-0, 2132-04 #### [facility] ([id number]) [address], [address] [place] [address] COMPREHENSIVE METABOLIC PANE Cesar 10-28-2023 Albumin [Mass/Vol] 3.7 g/dL Normal 3.2-5.3 [facility] Comment on above: Performed By: #### C BCA, CMP, 55836-9, THYR, 73886-5, 2132-04 #### [facility] ([id number]) [address], [address] [place] [address] ALP [Catalytic activity/Vol] 60 U/L Normal 39-130 Comment on above: Performed By: #### C BCA, CMP, 90033-2, THYR, 20569-3, 2132-04 #### [facility] ([id number]) [address], [address] [place] [address] ALT [Catalytic activity/Vol] 14 U/L Normal 0-31 Comment on above: Performed By: #### C BCA, CMP, 33207-0, THYR, 95551-1, 2132-04 #### [facility] ([id number]) [address], [address] [place] [address] Anion gap [Moles/Vol] 8 mmol/L Normal 5-15 Comment on above: Performed By: #### C BCA, CMP, 23510-8, THYR, 74494-7, 2132-04 #### [facility] ([id number]) [address], [address] [place] [address] AST [Catalytic activity/Vol] 15 U/L Normal 0-41 Comment on above: Performed By: #### C BCA, CMP, 38365-0, THYR, 22568-3, 2132-04 #### [facility] ([id number]) [address], [address] [place] [address] Bilirubin [Mass/Vol] 0.6 mg/dL Normal 0.3-1.2 Comment on above: Performed By: #### C BCA, CMP, 37805-9, THYR, 95428-5, 2132-04 #### [facility] ([id number]) [address], [address] [place] [address] Calcium [Mass/Vol] 9.0 mg/dL Normal 8.5-10.5 [facility] Comment on above: Performed By: #### C BCA, CMP, 14041-6, THYR, 34141-1, 2132-04 #### [facility] ([id number]) [address], [facility] [address] [place] [address] Chloride [Moles/Vol] 105 mmol/L Normal 98-109 Comment on above: Performed By: #### C BCA, CMP, 94596-1, THYR, 90381-4, 2132-04 #### [facility] ([id number]) [address], [facility] [address] [place] [address] CO2 [Moles/Vol] 27 mmol/L Normal 22-32 Comment on above: Performed By: #### C BCA, CMP, 97529-9, THYR, 82450-8, 2132-04 #### [facility] ([id number]) [address], [facility] [address] [place] [address] Creatinine [Mass/Vol] 0.89 mg/dL Normal 0.40-1.00 Comment on above: Result Comment: METH OD TRACEABLE TO IDMS STANDARD Performed By: #### C BCA, CMP, 90458-5, THYR, 29489-5, 2132-04 #### [facility] ([id number]) [address], [address] [address] GFR/1.73 sq M.predicted among non-blacks MDRD (S/P/Bld) [Vol rate/Area] 80 mL/min/{1.73_m2} Normal >59 Comment on above: Result Comment: Reported eGFR is based on the CKD-EPI 2020 equation that does not use a race coefficient. Performed By: #### C BCA, CMP, 61280-0, THYR, 56106-0, 2132-04 #### [facility] ([id number]) [address], [address] [place] [address] Glucose [Mass/Vol] 81 mg/dL Normal 65-99 [facility] Comment on above: Performed By: #### C BCA, CMP, 67378-8, THYR, 05536-6, 2132-04 #### [facility] ([id number]) [address], [address] [place] [address] Potassium [Moles/Vol] 4.1 mmol/L Normal 3.5-5.0 Comment on above: Performed By: #### C BCA, CMP, 02457-4, THYR, 52739-2, 2132-04 #### [facility] ([id number]) [address], [address] [place] [address] Protein [Mass/Vol] 6.6 g/dL Normal 6.0-8.0 [facility] Comment on above: Performed By: #### C BCA, CMP, 20360-0, THYR, 77609-5, 2132-04 #### [facility] ([id number]) [address], [address] [place] [address] Sodium [Moles/Vol] 140 mmol/L Normal 134-146 [facility] Comment on above: Performed By: #### C BCA, CMP, 57196-8, THYR, 84266-0, 2132-04 #### [facility] ([id number]) [address], [address] [place] [address] Urea nitrogen [Mass/Vol] 14 mg/dL Normal 5-23 Comment on above: Performed By: #### C BCA, CMP, 58209-5, THYR, 95426-3, 2132-04 #### [facility] ([id number]) [address], [address] [place] [address] Lipid 1996 panelon 4 Cholesterol [Mass/Vol] 220 mg/dL High 150-200 Comment on above: Performed By: #### C BCA, CMP, 36440-3, THYR, 30571-9, 2132-04 #### [facility] ([id number]) [address], [address] [place] [address] Cholesterol in HDL [Mass/Vol] 48 mg/dL Normal >39 Comment on above: Result Comment: HDL <40 mg/dL - High Risk HDL > or = 40mg/dL- Desirable HDL >60 mg/dL - Negative Risk Performed By: #### C BCA, CMP, 45199-9, THYR, , 2132-04 #### [facility] ([id number]) [address], [address] [place] [address] Cholesterol in LDL [Mass/Vol] 134 mg/dL High <130 Comment on above: Result Comment: LDL <100 mg/dL - Desirable LDL >160 mg/dL - High Risk Performed By: #### C BCA, CMP, 71795-0, THYR, 41207-6, 2132-04 #### [facility] ([id number]) [address], [address] [place] [address] Cholesterol in VLDL [Mass/Vol] 38 mg/dL High 0-30 Comment on above: Performed By: #### C BCA, CMP, 25567-6, THYR, 23601-4, 2132-04 #### [facility] ([id number]) [address], [address] [place] [address] CHOLESTEROL:HDL 4.6 Normal 1.0-5.0 Comment on above: Performed By: #### C BCA, CMP, 08445-2, THYR, 17415-6, 2132-04 #### [facility] ([id number]) [address], [address] [place] [address] Triglyceride [Mass/Vol] 192 mg/dL High 27-150 Comment on above: Performed By: #### C BCA, CMP, 12691-5, THYR, 14451-9, 2132-04 #### [facility] ([id number]) [address], [address] [place] [address] THYROID PROFILEon 10-28-2023 Free T4 [Mass/Vol] 0.95 ng/dL Normal 0.61-1.60 [facility] Comment on above: Performed By: #### C BCA, CMP, 31457-3, THYR, 36477-9, 2132-04 #### [facility] ([id number]) [address], [address] [place] [address] TSH 2.00 uIU/mL Normal 0.49-4.67 Comment on above: Performed By: #### C BCA, CMP, 51129-1, THYR, 19470-2, 2132-04 #### [facility] ([id number]) [address], [address] [place] [address] VITAMIN B12on 10-28-2023 Cobalamin (Vitamin B12) [Mass/Vol] 160 pg/mL Low 180-914 Comment on above: Performed By: #### C BCA, CMP, 63471-5, THYR, 84138-4, 2132-04 #### [facility] ([id number]) [address], [address] [place] [address] Vitamin D+Metabolites [Mass/ Vol]on 10-28-2023 VITAMIN D 25 HYD TOT 53.8 ng/mL Normal 30-100 Comment on above: Result Comment: Vitamin D status 25 [place] Vitamin D Deficiency <20 ng/mL Insufficiency 20-29 ng/mL Sufficiency 30-100 ng/mL Toxicity >100 ng/mL NOTE: A pediatric reference range has not been established by the principal software architect of this kit. The [place] [employer] recommends a Vitamin D level of = or >20ng/mL in infants and children. Performed By: #### C BCA, CMP, 31983-6, THYR, 23289-9, 2132-9 #### [facility] ([id number]) [address] [facility], [address] [place] [address] POCT urinalysis dipstick on yo 07-30-2023 Appearance (U) Clear [facility] External Poct Urine Bilirubin Negative [facility] External Poct Urine Blood Negative [facility] External Poct Urine Color Yellow [facility] External Poct Urine Glucose Negative [facility] External Poct Urine Ketones Negative [facility] External Poct Urine Leukocyte Esterase Negative [facility] External Poct Urine Nitrite Negative [facility] External Poct Urine Ph 6.5 [facility] External Poct Urine Protein Negative [facility] External Poct Urine Specific [place] 1.025 [facility] External Poct Urine Urobilinogen 0.[address] [facility] [address] LSPINE WO CONon 3 CT LSPINE WO CON EXAM: CT LSPINE WO C ON HISTORY: The patient is a 47-year-old female. DORSALGIA, UNSPECIFIED COMPARISON: None. TECHNIQUE: CT images were obtained through the lumbar spine without intravenous contrast and reformatted in 2 dimensions. Dose reduction techniques were achieved by using automated exposure control and/or adjustment of mA and/or kV according to patient size and/or use of iterative reconstruction technique. 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 The axial images demonstrate no fractures or cortical discontinuities throughout the lumbar spine. The sacroiliac joints are maintained. The coronal and sagittal reformatted images demonstrate no fractures or loss of vertebral body height throughout the lumbar spine. There is no malalignment. There is moderate disc space narrowing throughout the lumbar spine. The soft tissue images demonstrate no evidence of sizable disc herniations or central canal stenosis throughout the lumbar spine. IMPRESSION: No fractures or loss of vertebral body height throughout the lumbar spine in this patient with transitional anatomy. Electronically authenticated by: THEO LÓPEZ Date: 2022-11-02 22:09 Normal [facility] CBC (INCLUDES DIFF/PLT)on Basophils (Bld) [#/Vol] 0.029 10*3/uL Normal 0-200 [facility] Comment on above: Performed By: #### 6 399, 48461 #### [facility] of [place] [address] Net Software Developer: Juventino Nava MD Basophils/100 WBC (Bld) 0.5 % Normal [facility] Comment on above: Performed By: #### 6 399, 06461 #### [facility] [place] [address] [employer] Software Developer: Juventino Nava MD Eosinophils (Bld) [#/Vol] 0.099 10*3/uL Normal 15-500 [facility] Comment on above: Performed By: #### 6 399, 46721 #### [facility] [place] [address] Net Software Developer: Juventino Nava MD Eosinophils/100 WBC (Bld) 1.7 % Normal [facility] Comment on above: Performed By: #### 6 399, 44532 #### [facility] [place] [address] [employer] Software Developer: Juventino Nava MD Erythrocyte distribution width (RBC) [Ratio] 11.4 % Normal 11.0-15.0 [facility] Comment on above: Performed By: #### 6 399, 85296 #### [facility] [place] [address] [employer] Software Developer: Juventino Nava MD Hematocrit (Bld) [Volume fraction] 42.8 % Normal 35.0-45.0 [facility] Comment on above: Performed By: #### 6 399, 22515 #### [facility] [place] [address] Net Software Developer: Juventino Nava MD Hemoglobin (Bld) [Mass/Vol] 15.0 g/dL Normal 11.7-15.5 [facility] Comment on above: Performed By: #### 6 399, 27466 #### [facility] [place] [address] Net Software Developer: Juventino Nava MD Lymphocytes (Bld) [#/Vol] 2.129 10*3/uL Normal 850-3900 [facility] Comment on above: Performed By: #### 6 399, 77510 #### [facility] [place] [address] Net Software Developer: Juventino Nava MD Lymphocytes/100 WBC (Bld) 36.7 % Normal [facility] Comment on above: Performed By: #### 6 399, 91118 #### [facility] [place] [address] Net Software Developer: Juventino Nava MD MCH (RBC) [Entitic mass] 33.8 pg High 27.0-33.0 [facility] Comment on above: Performed By: #### 6 399, 07482 #### [facility] [place] [address] Net Software Developer: Juventino Nava MD MCHC (RBC) [Mass/Vol] 35.0 g/dL Normal 32.0-36.0 [facility] Comment on above: Performed By: #### 6 399, 20214 #### [facility] [place] [address] Net Software Developer: Juventino Nava MD MCV (RBC) [Entitic vol] 96.4 fL Normal 80.0-100.0 [facility] Comment on above: Performed By: #### 6 399, 36468 #### [facility] of [address], [address] [place] [address] Net Software Developer: Juventino Nava MD Monocytes (Bld) [#/Vol] 0.394 10*3/uL Normal 200-950 [facility] Comment on above: Performed By: #### 6 399, 61429 #### [facility] of [address], [address] [place] [address] Net Software Developer: Juventino Nava MD Monocytes/100 WBC (Bld) 6.8 % Normal [facility] Comment on above: Performed By: #### 6 399, 84456 #### [facility] [place] [address] Net Software Developer: Juventino Nava MD Neutrophils (Bld) [#/Vol] 3.149 10*3/uL Normal 8412-9860 [facility] Comment on above: Performed By: #### 6 399, 77444 #### [facility] of [address], [address] [place] [address] Net Software Developer: Juventino Nava MD Neutrophils/100 WBC (Bld) 54.3 % Normal [facility] Comment on above: Performed By: #### 6 399, 30572 #### [facility] [place] [address] Net Software Developer: Juventino Nava MD Platelet mean volume (Bld) [Entitic vol] 11.7 fL Normal 7.5-12.5 [facility] Comment on above: Performed By: #### 6 399, 01334 #### [facility] of [address], [address] [place] [address] Net Software Developer: Juventino Nava MD Platelets (Bld) [#/Vol] 242 10*3/uL Normal 140-400 [facility] Comment on above: Performed By: #### 6 399, 37573 #### [facility] [place] [address] Net Software Developer: Juventino Nava MD RBC (Bld) [#/Vol] 4.44 10*6/uL Normal 3.80-5.10 [facility] Comment on above: Performed By: #### 6 399, 71791 #### [facility] [place] [address] Net Software Developer: Juventino Nava MD WBC (Bld) [#/Vol] 5.8 10*3/uL Normal 3.8-10.8 [facility] Comment on above: Performed By: #### 6 399, 03824 #### [facility] [place] [address] Net Software Developer: Juventino Nava MD TSH+FREE T4on 10-13-2021 Free T4 [Mass/Vol] 1.0 ng/dL Normal 0.8-1.8 [facility] Comment on above: Performed By: #### 6 399, 88279 #### [facility] [place] [address] Net Software Developer: Juventino Nava MD TSH Qn 1.89 m[IU]/L Normal [facility] Comment on above: Result Comment: Refe rence Range > or = 20 Years 0.40-4.50 Ranges First trimester 0.26-2.66 Second trimester 0.55-2.73 Third trimester 0.43-2.91 Performed By: #### 6 399, 62287 #### [facility] [place] [address] Net Software Developer: Juventino Nava MD D-DIMER, QUANTITATIVEon 08-04 D-DIMER, QUANTITATIVE 0.60 mcg/mL FEU High <0.50 [facility] Comment on above: Result Comment: The D-Dimer test is used frequently to exclude an acute PE or DVT. In patients with a low to moderate clinical risk assessment and a D-Dimer result <0.50 mcg/mL FEU, the likelihood of a PE or DVT is very low. However, a thromboembolic event should not be excluded solely on the basis of the D-Dimer level. Increased levels of D-Dimer are associated with a PE, DVT, DIC, malignancies, inflammation, sepsis, surgery, trauma, , and advancing patient age. [Gracia 2006 11:295(2):199-207] For additional information, please refer to: [email or web address]/[email or web address] (This link is being provided for informational/ educational purposes only) Performed By: #### 8 659 #### [facility] [address], [address] [place] [address] Net Software Developer: Juventino Nava MD BISHNU SCREEN, IFA, W/REFL TITE R AND PATTERNon 05-29-2021 BISHNU SCREEN, IFA Negative Normal NEGATIVE [facility] Comment on above: Result Comment: BISHNU IFA is a first line screen for detecting the presence of up to approximately 150 autoantibodies in various autoimmune diseases. A negative BISHNU IFA result suggests an BISHNU-associated autoimmune disease is not present at this time, but is not definitive. If there is high clinical suspicion for Sjogren's syndrome, testing for anti-SS-A/Ro antibody should be considered. Anti-Bev-1 antibody should be considered for clinically suspected inflammatory myopathies. AC-0: Negative International Consensus on BISHNU Patterns (https://doi.org/10.1515/zgxt-1653-2587) For additional information, please refer to http://Armut.[employer]/faq/LZG964 (This link is being provided for informational/ educational purposes only.) Performed By: #### 5 8984, 71623, 7600, 25064, 90984, 4420, 809, 249 #### [facility] [address], [address] [place] [address] Net Software Developer: Juventino Nava MD C-REACTIVE PROTEINon 021 CRP [Mass/Vol] 7.4 mg/L Normal <8.0 [facility] Comment on above: Performed By: #### 6 399, 45335 #### [facility] [address], [address] [place] [address] Net Software Developer: Juventino Nava MD COMPREHENSIVE METABOLIC PANE [facility] 05-29-2021 Albumin [Mass/Vol] 4.0 g/dL Normal 3.6-5.1 [facility] Comment on above: Performed By: #### 5 8984, 68392, 7600, 77179, 69154, 4420, 809, 249 #### [facility] of [address], [address] [place] [address] Net Software Developer: Juventino Nava MD Albumin/Globulin [Mass ratio] 1.6 {ratio} Normal 1.0-2.5 [facility] Comment on above: Performed By: #### 5 8984, 80241, 7600, 11257, 08323, 4420, 809, 249 #### [facility] [place] [address] Net Software Developer: Juventino Nava MD ALP [Catalytic activity/Vol] 68 U/L Normal 31-125 [facility] Comment on above: Performed By: #### 5 8984, 52403, 7600, 87253, 55823, 4420, 809, 249 #### [facility] [place] [address] Net Software Developer: Juventino Nava MD ALT [Catalytic activity/Vol] 16 U/L Normal 6-29 [facility] Comment on above: Performed By: #### 5 8984, 78649, 7600, 22715, 80544, 4420, 809, 249 #### [facility] [place] [address] Net Software Developer: Juventino Nava MD AST [Catalytic activity/Vol] 13 U/L Normal 10-35 [facility] Comment on above: Performed By: #### 5 8984, 13414, 7600, 94435, 84378, 4420, 809, 249 #### [facility] [place] [address] Net Software Developer: Juventino Nava MD Bilirubin [Mass/Vol] 0.8 mg/dL Normal 0.2-1.2 [facility] Comment on above: Performed By: #### 5 8984, 22182, 7600, 92098, 58505, 4420, 809, 249 #### [facility] [place] [address] Net Software Developer: Juventino Nava MD BUN/CREATININE RATIO NOT APPLICABLE Normal 6-22 [facility] Comment on above: Performed By: #### 5 8984, 51110, 7600, 97403, 16557, 4420, 809, 249 #### [facility] [place] [address] Net Software Developer: Juventino Nava MD Calcium [Mass/Vol] 9.5 mg/dL Normal 8.6-10.2 [facility] Comment on above: Performed By: #### 5 8984, 45153, 7600, 36513, 68407, 4420, 809, 249 #### [facility] of [address], [address] [place] [address] Net Software Developer: Juventino Nava MD Chloride [Moles/Vol] 102 mmol/L Normal 98-110 [facility] Comment on above: Performed By: #### 5 8984, 11739, 7600, 32869, 48792, 4420, 809, 249 #### [facility] [place] [address] Net Software Developer: Juventino Nava MD CO2 [Moles/Vol] 29 mmol/L Normal 20-32 [facility] Comment on above: Performed By: #### 5 8984, 19066, 7600, 26016, 19869, 4420, 809, 249 #### [facility] [place] [address] Net Software Developer: Juventino Nava MD Creatinine [Mass/Vol] 0.76 mg/dL Normal 0.50-1.10 [facility] Comment on above: Performed By: #### 5 8984, 26775, 7600, 57392, 27588, 4420, 809, 249 #### [facility] [place] [address] Net Software Developer: Juventino Nava MD eGFR NON-AFR. [place] 95 mL/min/1.73m2 Normal > OR = 60 [facility] Comment on above: Performed By: #### 5 8984, 77581, 7600, 74446, 70907, 4420, 809, 249 #### [facility] [place] [address] Net Software Developer: Juventino Nava MD GFR/1.73 sq M.predicted among blacks MDRD (S/P/Bld) [Vol rate/Area] 110 mL/min/{1.73_m2} Normal > OR = 60 [facility] Comment on above: Performed By: #### 5 8984, 87519, 7600, 54657, 66477, 4420, 809, 249 #### [facility] [place] [address] Net Software Developer: Juventino Nava MD Globulin (S) [Mass/Vol] 2.5 g/dL Normal 1.9-3.7 [facility] Comment on above: Performed By: #### 5 8984, 49051, 7600, 47358, 00413, 4420, 809, 249 #### [facility] [place] [address] Net Software Developer: Juventino Nava MD Glucose [Mass/Vol] 94 mg/dL Normal 65-139 [facility] Comment on above: Result Comment: Non-fasting reference interval Performed By: #### 5 8984, 13964, 7600, 57578, 57350, 4420, 809, 249 #### [facility] [place] [address] Net Software Developer: Juventino Nava MD Potassium [Moles/Vol] 4.2 mmol/L Normal 3.5-5.3 [facility] Comment on above: Performed By: #### 5 8984, 24882, 7600, 83830, 33011, 4420, 809, 249 #### [facility] [place] [address] Net Software Developer: Juventino Nava MD Protein [Mass/Vol] 6.5 g/dL Normal 6.1-8.1 [facility] Comment on above: Performed By: #### 5 8984, 40628, 7600, 70925, 77274, 4420, 809, 249 #### [facility] [address], [address] [place] [address] Net Software Developer: Juventino Nava MD Sodium [Moles/Vol] 138 mmol/L Normal 135-146 [facility] Comment on above: Performed By: #### 5 8984, 11104, 7600, 26075, 11498, 4420, 809, 249 #### [facility] [address], [address] [place] [address] Net Software Developer: Juventino Nava MD Urea nitrogen [Mass/Vol] 12 mg/dL Normal 7-25 [facility] Comment on above: Performed By: #### 5 8984, 88886, 7600, 21829, 05486, 4420, 809, 249 #### [facility] [address], [address] [place] [address] Net Software Developer: Juventino Nava MD LIPID PANEL, [place] [address] Cholesterol [Mass/Vol] 230 mg/dL High <200 [facility] Comment on above: Order Comment: FASTI NG:NO FASTING: NO Performed By: #### 5 8984, 35540, 7600, 47483, 02940, 4420, 809, 249 #### [facility] [place] [address] Net Software Developer: Juventino Nava MD Cholesterol in HDL [Mass/Vol] 54 mg/dL Normal > OR = 50 [facility] Comment on above: Order Comment: FASTI NG:NO FASTING: NO Performed By: #### 5 8984, 56245, 7600, 04902, 29419, 4420, 809, 249 #### [facility] [address], [address] [place] [address] Net Software Developer: Juventino Nava MD Cholesterol in LDL [Mass/Vol] 145 mg/dL High [facility] Comment on above: Order Comment: FASTI NG:NO FASTING: NO Result Comment: Refe rence range: <100 Desirable range <100 mg/dL for primary prevention; <70 mg/dL for patients with CHD or diabetic patients with > or = 2 CHD risk factors. LDL-C is now calculated using the Pooja calculation, which is a validated novel method providing better accuracy than the Friedewald equation in the estimation of LDL-C. Yousif SS et al. GRACIA. 2013;310(19): 1781-7506 (http://education.[employer]/faq/MGB434) Performed By: #### 5 8984, 69487, 7600, 53559, 31511, 4420, 809, 249 #### [facility] [address], [address] [place] [address] Net Software Developer: Juventino Nava MD Cholesterol.total/C holesterol in HDL [Mass ratio] 4.3 {ratio} Normal <5.0 [facility] Comment on above: Order Comment: FASTI NG:NO FASTING: NO Performed By: #### 5 8984, 96520, 7600, 21416, 91458, 4420, 809, 249 #### [facility] [address], [address] [place] [address] Net Software Developer: Juventino Nava MD NON HDL CHOLESTEROL 176 mg/dL (calc) High <130 [facility] Comment on above: Order Comment: FASTI NG:NO FASTING: NO Result Comment: For patients with diabetes plus 1 major ASCVD risk factor, treating to a non-HDL-C goal of <100 mg/dL (LDL-C of <70 mg/dL) is considered a therapeutic option. Performed By: #### 5 8984, 84663, 7600, 50660, 27373, 4420, 809, 249 #### [facility] [address], [address] [place] [address] Net Software Developer: Juventino Nava MD Triglyceride [Mass/Vol] 172 mg/dL High <150 [facility] Comment on above: Order Comment: FASTI NG:NO FASTING: NO Performed By: #### 5 8984, 19480, 7600, 24655, 54717, 4420, 809, 249 #### [facility] [place] [address] Net Software Developer: Juventino Nava MD RHEUMATOID ARTHRITIS DIAGNOS TIC PANEL 1on 05-29-2021 CYCLIC CITRULLINATED PEPTIDE (CCP) AB (IGG) <16 Normal [facility] Comment on above: Result Comment: Refe rence Range Negative: <20 Weak Positive: 20-39 Moderate Positive: 40-59 Strong Positive: >59 Performed By: #### 5 8984, 78355, 7600, 25431, 53164, 4420, 809, 249 #### [facility] [place] [address] Net Software Developer: Juventino Nava MD INTERPRETATION Normal [facility] Comment on above: Result Comment: These serologic results may be found in 10-20% of patients with polyarthritis that is clinically and radiologically indistinguishable from RA. Performed By: #### 5 8984, 84632, 7600, 95896, 47226, 4420, 809, 249 #### [facility] [place] [address] Net Software Developer: Juventino Nava MD RHEUMATOID FACTOR <14 Normal <14 [facility] Comment on above: Performed By: #### 5 8984, 90528, 7600, 93007, 01677, 4420, 809, 249 #### [facility] [place] [address] Net Software Developer: Juventino Nava MD SED RATE BY MODIFIED REBECCAERG Marco 05-29-2021 SED RATE BY MODIFIED WESTERGREN 9 mm/h Normal < OR = 20 [facility] Comment on above: Performed By: #### 5 8984, 54882, 7600, 97253, 77183, 4420, 809, 249 #### [facility] [place] [address] Net Software Developer: Juventino Nava MD TSH+FREE T4on 05-29-2021 Free T4 [Mass/Vol] 1.0 ng/dL Normal 0.8-1.8 [facility] Comment on above: Performed By: #### 5 8984, 01508, 7600, 81521, 61913, 4420, 809, 249 #### [facility] [address], [address] [place] [address] Net Software Developer: Juventino Nava MD TSH Qn 1.52 m[IU]/L Normal [facility] Comment on above: Result Comment: Refe rence Range > or = 20 Years 0.40-4.50 Ranges First trimester 0.26-2.66 Second trimester 0.55-2.73 Third trimester 0.43-2.91 Performed By: #### 5 8984, 42836, 7600, 53197, 38975, 4420, 809, 249 #### [facility] [address], [address] [place] [address] Net Software Developer: Juventino aNva MD VITAMIN D,25-OH,TOTAL,IAon 1 VITAMIN D,25-OH,TOTAL,IA 26 ng/mL Low 30-100 [facility] Comment on above: Result Comment: Lisa min D Status 25-OH Vitamin D: Deficiency: <20 ng/mL Insufficiency: 20 - 29 ng/mL Optimal: > or = 30 ng/mL For 25-OH Vitamin D testing on patients on D2-supplementation and patients for whom quantitation of D2 and D3 fractions is required, the QuestAssureD(TM) 25-OH VIT D, (D2,D3), LC/MS/MS is recommended: order code 88943 (patients >2yrs). See Note 1 Note 1 For additional information, please refer to http://education.GetYou.[employer]/faq/ZMC544 (This link is being provided for informational/ educational purposes only.) Performed By: #### [id number] #### [facility] [address], [address] [place] [address] Net Software Developer: Juventino Nava MD CULTURE, URINE, ROUTINEon CULTURE, URINE, ROUTINE SEE NOTE Abnormal [facility] Comment on above: Result Comment: CULTURE, URINE, ROUTINE Micro Number: [id number] Test Status: Final Specimen Source: Urine Specimen Quality: Adequate Result: 50,000-100,000 CFU/mL of Escherichia coli E.coli INT KAREN AMOX/CLAVULANATE S 4 AMPICILLIN S 4 AMP/SULBACTAM S <=2 CEFAZOLIN NR <=4 2 CEFEPIME S <=1 CEFTRIAXONE S <=1 CIPROFLOXACIN S <=0.25 ERTAPENEM S <=0.5 GENTAMICIN S <=1 IMIPENEM S <=0.25 LEVOFLOXACIN S <=0.12 NITROFURANTOIN S <=16 PIP/TAZOBACTAM S <=4 TOBRAMYCIN S <=1 TRIMETHOPRIM/SULFA S <=20 S=Susceptible I=Intermediate R=Resistant * = Not Tested NR = Not Reported NN = See Therapy Comments THERAPY COMMENTS Note 1: For infections other than uncomplicated UTI caused by E. coli, K. pneumoniae or P. mirabilis: Cefazolin is resistant if KAREN > or = 8 mcg/mL. (Distinguishing susceptible versus intermediate for isolates with KAREN < or = 4 mcg/mL requires additional testing.) Note 2: For uncomplicated UTI caused by E. coli, K. pneumoniae or P. mirabilis: Cefazolin is susceptible if KAREN <32 mcg/mL and predicts susceptible to the oral agents cefaclor, cefdinir, cefpodoxime, cefprozil, cefuroxime, cephalexin and loracarbef. Performed By: #### 3 95 #### [facility] [address], [address] [place] [id number] Net Software Developer: Juventino Nava MD CORONAVIRUS 2018, SCREEN ASY MPTOMATICon 06-30-2020 CORONAVIRUS 2019,PCR Canceled Normal [facility] Comment on above: Order Comment: TEST CORONAVIRUS 2018, SCREEN ASYMPTOMATIC WAS CANCELLED, 06/30/2020 15:33 DUPLICATE ORDER. Result Comment: . This assay is designed to detect the N, ORF1ab and/or S genes of SARS-CoV-2 via nucleic acid amplification. A Negative (NOT DETECTED) result does not preclude 2019-nCoV infection since the adequacy of sample collection and/or low viral burden may result in presence of viral nucleic acids below the clinical sensitivity of this test method. Negative (NOT DETECTED) result should not be used as the sole basis for treatment or other patient management decisions. Rather negative results should be combined with clinical observations, patient history, and epidemiological information to make patient management decisions. Fact sheet for providers: https://www.fda.gov/media/393574/download Fact sheet for patients: https://www.fda.gov/media/606885/download This test has received [facility] Emergency Use Authorization (EUA) and has been verified by [facility] ([facility]). This test is only authorized for the duration of time that circumstances exist to justify the authorization of the emergency use of in vitro diagnostic tests for the detection of SARS-CoV-2 virus and/or diagnosis of COVID-19 infection under section 564(b)(1) of the Act, 21 U.S.C. 360bbb-3(b)(1), unless the authorization is terminated or revoked sooner. [facility] is certified under CLIA-88 as qualified to perform high complexity testing. Testing is performed in the [facility] laboratories located at [address] [place] [address]. Performed By: #### C OVSC #### [address] [place] [address] CORONAVIRUS 2019,PCR Canceled Normal [facility] Comment on above: Order Comment: TEST CORONAVIRUS 2019, SCREEN ASYMPTOMATIC WAS CANCELLED, 06/30/2020 15:32 DUPLICATE ORDER. Result Comment: . This assay is designed to detect the N, ORF1ab and/or S genes of SARS-CoV-2 via nucleic acid amplification. A Negative (NOT DETECTED) result does not preclude 2019-nCoV infection since the adequacy of sample collection and/or low viral burden may result in presence of viral nucleic acids below the clinical sensitivity of this test method. Negative (NOT DETECTED) result should not be used as the sole basis for treatment or other patient management decisions. Rather negative results should be combined with clinical observations, patient history, and epidemiological information to make patient management decisions. Fact sheet for providers: https://www.fda.gov/media/478758/download Fact sheet for patients: https://www.fda.gov/media/642581/download This test has received [facility] Emergency Use Authorization (EUA) and has been verified by [facility] ([facility]). This test is only authorized for the duration of time that circumstances exist to justify the authorization of the emergency use of in vitro diagnostic tests for the detection of SARS-CoV-2 virus and/or diagnosis of COVID-19 infection under section 564(b)(1) of the Act, 21 U.S.C. 360bbb-3(b)(1), unless the authorization is terminated or revoked sooner. [facility] is certified under CLIA-88 as qualified to perform high complexity testing. Testing is performed in the [facility] laboratories located at [address] [place] [address]. Performed By: #### C OVSC #### [place] [id number] COAGULATION SCREENon 020 aPTT Coag (Bld) [Time] 30 s Normal 25 - 35 [facility] Comment on above: Result Comment: THE APTT IS NO LONGER USED FOR MONITORING UNFRACTIONATED HEPARIN THERAPY. FOR MONITORING HEPARIN THERAPY, USE THE HEPARIN ASSAY. Performed By: #### C OAGS #### [address] [id number] INR Coag (PPP) [Relative time] 1.0 {INR} Normal 0.9 - 1.1 [facility] Comment on above: Performed By: #### C OAGS #### [address] [id number] PT Coag (PPP) [Time] 11.5 s Normal 10.1 - 13.3 [facility] Comment on above: Performed By: #### C OAGS #### [address] [id number] Daily Progress Note-Electrop hysiologyon 05-10-2020 Daily Progress Note-Electrophysiol ogy Service: Electrophysiology Assessment and Plan: Code Status: Code StatusFull Code Assessment: Complete electrophysiology Study, 3 D mapping, pacing after IV medication administration, with discontinued ablation of (probable) left sided accessory pathway Summary: Mildly abnormal SA rashmi function. Normal AV rashmi function. Normal His-Purkinje conduction. Eccentric VA conduction. There was a hemodynamically stable narrow complex tachycardia consistent with earliest atrial activation in distal CS. 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 Ablation discontinued as unable to obtain access for retrograde aortic approach and other factors. Discharge: 1.The patient left the EP laboratory in stable condition. Follow up: 1.The patient will remain in the hospital for telemetry monitoring and observation, with anticipated discharge on the same day. The patient should be alert for bleeding, swelling, or signs of infection. The patient should call the sales representative church furniture immediately if symptoms recur, or for any problems. The patient and family (mother via telephone with HIPPA consent) has been instructed accordingly. 2. She will return for ablation via trans-septal approach under general anesthesia. Procedure can be scheduled after 30 days from Vascade placements and after patient has been seen in pain clinic for evaluation for pain medication and possible non-narcotic medication. 3. Cessation of marijuana use was discussed. Procedures: Complete Electrophysiologic testing. HIS Recording. CS recording. Program stim / with IV Meds. Arrhythmia induction. 3D mapping - complex prolonged procedure. Ablation discontinued. Patient history: Please refer to the detailed history and physical on the patient's medical chart. Diagnosis PSVT, near syncope Procedure narrative: The risks, benefits, and alternatives to the procedure and sedation were explained to the patient, and informed consent was obtained. The patient was in the fasting state. A baseline ECG was recorded. RF grounding pads were placed. Self-adhesive anterior-posterior defibrillation pads were applied. A ZOLL defibrillator was used for monitoring and the defibrillator waveform was set to biphasic. The patient was set up for continuous monitoring of surface 12 lead ECG and pulse oximetry. Blood pressure was monitored with automatic cuff measurements. The procedure was performed under IV conscious sedation supplemented with intermittent deep sedation. Bilateral groins were clipped, prepped with chlorhexidine, and draped in the usual sterile fashion. Local anesthesia: Subcutaneous tissues were infiltrated with Lidocaine 1 % ( 30 ml) to the right groin for local anesthesia. 1.The right femoral vein was accessed x 3 using the modified Seldinger technique. Three sheaths were inserted. 2.Electrophysiologic testing was performed with a multiple catheter technique. The catheters were placed under fluoroscopic guidance. A catheter was placed across the tricuspid valve to record the His bundle. Testing was done at baseline, with and without provocation. Testing was performed with adenosine at a maximum dose of 6 mg. Change in earliest retrograde activation from cs 1-2 to cs 5-6 occurred. Measurements of basic intervals and refractory periods were obtained. Protocols included decremental pacing, burst pacing, and programmed stimulation. Stimuli were delivered at right atrial, right ventricular apex, right ventricular outflow tract, and coronary sinus sites. HV 41, AH 105 cSNRT 833 at PCL 600 ms WCL 340 2:1 AVBCL 280 AVNERP 400/260 Retrograde VA ERP 260 Early PVC reset tachycardia with no change in retrograde activation PVC during His refractoriness advanced the next atrial electrogram. No change in retrograde activation. V pacing during tachycardia terminated tachycardia with VAV sequence. 3.Reproducibly inducible SVT with VA over 70 ms and earliest retrograde A in cs 1-2. After the tachycardia was fully characterized and reproducibly induced, an ablation catheter was placed. 4.Complex prolonged procedure for mapping with additional 40 minutes. The superior vena cava, tricuspid annulus, right atrial, and His bundle sites were mapped with [id number] electroanatomical activation mapping and pace mapping from both the right atrial catheter and the ablation catheter. An Varioptic mapping system was used to create a 3D image of the right atrium, His bundle and tricuspid annulus. Mapping was performed during sinus rhythm, supraventricular tachycardia, and coronary sinus pacing. Earliest retrograde atrial activation was beyond cs 1-2, with the cs catheter advanced as far distally as possible. The lateral region beyond cs 1-2 could not be mapped from the right side. Complex prolonged procedure - additional 70 minutes for access The patient continuously moved during the procedure. Sedation was administered by anesthesiology. Hypotension limited the sedation level. See anesthesiology report. The right femoral artery was attempted to be accessed. It had a marked lateral course. A guidewire would not advance. Vascular ultrasound demonstrated a superior birfurcation of the iliac artery then lateral course of the femoral artery. A glidewire was advanced, and the course of the artery was lateral. Given the course of the vein and no maneuverability for catheter for retrograde aortic approach as well as hypotension with sedation, further attempts at ablation were discontinued. 5.Sheaths were removed and hemostasis was obtained at the right femoral venous access sites with Vascades. Manual compression was applied. Tegraderm dressing was applied. See signed procedural log. Vascular access and catheter properties: Entry site Sheath Locations Catheter Type Right femoral vein 7 Fr His-bundle (right side) SJM, quad new access Right femoral vein 7 Fr coronary sinus SJM, deca new access Right femoral vein 8 Fr roving, RA, RVA, RVOT, TV SJM, lg Saffire new access Complications: The patient tolerated the procedure without any complications or incident. EBL 10 cc Specimens obtained: No Prepared and signed by. Electronic Signatures: Tasneem Valdes) (Signed 10-May-2020 12:35) Authored: Service, Objective Data, Assessment and Plan, Note Completion Last Updated: 10-May-2020 12:35 by Tasneem Valdes) [facility] History and Physical - Surgi yousuf Update < 30 dayson 05-10-2020 History and Physical - Surgical Update < 30 days History & Physical Reviewed: /Lactating: Are You no (1) Are You Currently Breastfeedingno (1) I have reviewed the History and Physical dated: 18-Apr-2020 History and Physical reviewed and relevant findings noted. Patient examined to review pertinent physical findings.: No significant changes Home Medications Reviewed: no changes noted Allergies Reviewed: no changes noted Airway/Sedation Assessment: Mouth Opening OKyes Neck Flexibility OKyes Loose Teethno Oropharyngeal ClassificationClass I ASA PS ClassificationASA I Sedation Planmoderate (sedation level of 3-4) ERAS (Enhanced Recovery After Surgery): ERAS Patient: no Consent: COVID-19 Consent: COVID-19 Risk ConsentSurgeon has reviewed taylor risks related to the risk of pat COVID-19 and if they contract COVID-19 what the risks are. Signatures/Attestation: Note Completion: Attending Provider Inpatient Certification StatementObservation patient/other outpatient visits Electronic Signatures: Ronnie Ambriz) (Signed 10-May-2020 13:15) Authored: History & Physical Reviewed, Airway/Sedation, ERAS, Consent, Note Completion Last Updated: 10-May-2020 13:15 by Ronnie Ambriz) References: 1. Data Referenced From History and Physical - Surgical Update < 30 days 10-May-2020 09:22 Normal [facility] History and Physical - Surgical Update < 30 days History & Physical Reviewed: /Lactating: Are You no (1) Are You Currently Breastfeedingno (1) I have reviewed the History and Physical dated: 18-Apr-2020 History and Physical reviewed and relevant findings noted. Patient examined to review pertinent physical findings.: No significant changes Home Medications Reviewed: no changes noted Allergies Reviewed: no changes noted Airway/Sedation Assessment: Assmentment by AnesthesiaSee anesthesia airway/sedation assessment. Emotional Statuscalm Neurologicalert & oriented x 3 Respiratoryclear to auscultation Cardiovascularrhythm & rate regular GI/GUsoft, nontender Pulsespresent: Pedal Left, Pedal Right, Radial Left, Radial Right Mouth Opening OKyes Neck Flexibility OKyes Loose Teethno ERAS (Enhanced Recovery After Surgery): ERAS Patient: no Consent: COVID-19 Consent: COVID-19 Risk ConsentSurgeon has reviewed taylor risks related to the risk of pat COVID-19 and if they contract COVID-19 what the risks are. Signatures/Attestation: Note Completion: Attending Provider Inpatient Certification StatementObservation patient/other outpatient visits Electronic Signatures: Tasneem Valdes) (Signed 10-May-2020 09:23) Authored: History & Physical Reviewed, Airway/Sedation, ERAS, Consent, Note Completion Last Updated: 10-May-2020 09:23 by Tasneem Valdes) References: 1. Data Referenced From Patient Profile - Preop v2 10-May-2020 06:04 Normal [facility] Patient Profile - Preop v2on 05-10-2020 Patient Profile - Preop v2 Profile: Initial Info: How to be AddressedJamie Spoken Language PreferredEnglish Source of Informationpatient Are you currently using the Personal Electronic Health Record or MY[facility]AREno Are you interested in learning more about MYCARE for the management of your healthyes, information provided Email [email or web address] for [email or web address] EP study STEPHAN Primary Contact Name and NumberGlo Prado [phone] Patient Belongingsremains with patient Patient Belongings Remaining with Patientcash/credit card; cell phone/electronics; clothing; jewelry; purse/wallet Medications Brought to Hospitalno General Health: Weight in kg125.7 kilogram(s) Weight in cfb839.1 pound(s) Weight Methodactual (measured) Scale Typestanding Height in feet5 feet Height in inches8 inch(es) Height in cm172.7 centimeter(s) Height Methodstated BMI (kg/m2)42.145 square meter Patient or Family Member Reaction to Anesthesiano previous reaction Blood Avoidance/Restrictionsno ne Previous Transfusion Reactionno Health Mgmt: Symptoms/Conditions Managed at Homebehavioral health; cardiovascular; chronic pain; endocrine; gastrointestinal; immunological Are You no Are You Currently Breastfeedingno Behavioral Health Symptoms/Conditionsanxie ty; depression Cardiovascular Symptoms/Conditionsdysrh ythmia Endocrine Symptoms/Conditionsthyro id disease Gastrointestinal Symptoms/Conditionsconst ipation Immunological Symptoms/Conditionsfibro myalgia Chronic Pain Locationgeneralized Barriers to Managing Healthnone Relationship/Environ: Living Arrangementshouse Lives Withspouse; adult child(spring); parent(s) Resource/Environmental Concernsnone Anticipated Transition [place] Services Anticipated at Transitionnone Substance: Current or Former Substance Use never: Cigarette/Tobacco, e-Cigarette/Vaping, Alcohol YES: Street Drugs Street Drug/Inhalant/ Medication Use Statuscurrent street drug/inhalant/medication abuse Street Drug/Medication/ Inhalant Typemarijuana Street Drug/Medication/ Inhalant Routesmoking Frequency of Street Drug/Medication/Inhalant Usedaily Risk Screens: COVID-19 Screening Completedno exposure or symptoms Advance Directive/DNRno During the past month, have you often been bothered by feeling down, depressed or hopelessyes During the past month, have you often had little interest or pleasure in doing thingsyes Have you had any thoughts of harming yourselfno Have you had any thoughts of harming anyone elseno Are you or have you been threatened or abused physically,emotionally or sexually abused by anyoneno Do you feel UNSAFE going back to the place you are livingno Patient is Able to be Assessed for Learningyes Factors Influencing Readiness to Learnacuteness of illness Factors that Impact Ability to Learnnone Devices/Methods Used to Communicatenone Learning Preferenceswritten material Cultural Considerationsnone Developmental Considerationsnone Episcopalian Considerationsnone Other learner availableno [place] RiskPatient location auto qualifies him/her for HIGH RISK. Are there any cultural, spiritual, scientologist practices/values/needs that are important for us to knowno Pain Scalenumerical 0-10 Pain Scale Educationteaching provided Current Pain Level0 = None Acceptable Pain Level5 = Moderate Chronic Painyes Information Review: Allergies, Home Meds and Significant Events have been Reviewed and Verified with Patient/Familyyes Allergy, Intolerance, Adverse Event: Allergies: gabapentin: Drug, Unknown, Active Significant Events: 10-May-2020 Back surgery: Past Surgical History, Active 10-May-2020 Appendectomy: Past Surgical History, Active 10-May-2020 Hysterectomy: Past Surgical History, Active Electronic Signatures: Marietta Soria (MARY) (Signed 10-May-2020 06:18) Authored: Initial Info, General Health, Health Mgmt, Relationship/Environ, Substance, Risk Screens, Additional Information Last Updated: 10-May-2020 06:18 by Marietta Soria (MARY) Normal [facility] Preop Checkliston 05-10-2020 Preop Checklist Preop Checklist: Preop Checklist: Arrival [id number] Arrival Time05:33 Procedure Typetee ep ablation Temperature C36.3 degrees C Temperature F97.3 degrees F Heart Rate62 beats per minute Respiratory Rate16 breath per minute Blood Pressure Ppgvksce782 mm/Hg Blood Pressure Eujzzlmje73 mm/Hg NPO [id number] 18:00 ID Band Onyes Allergy Bandyes Consent Signedyes H&P Completeyes Anesthesia Assessment Completedpending EKG Performedyes Chest X-Ray Performednot ordered HCG Urine TestN/A Chlorhexadine Bath Givencompleted in pre-op Nasal Antiseptic Appliednot applicable Hair Washedno Soap and water bath with hair shampoo the night before surgeryno Hat placed on infant prior to transportno SCD's Appliedno KELSIE Hose Appliedno Denturesnot applicable Prostheticsnot applicable Hearing Aidsnot applicable Valuables Securedleft in patient room Glasses / Contactsnot applicable Cardiovascular Assessment: Apicalregular Radial Pulsespalpable Pedal Pulsespalpable Extremitieswarm Respiratory Assessment: Respirationsunlabored regular Air Exchangeequal, good Breath Soundsclear Neurological Assessment: Level of Consciousnessalert, oriented Mobilitymoves all extremities Able to Express Selfyes Age Appropriateyes Emotional Statuscalm Preop Education: Surgical Site Infection Preventionyes Pain Scales and Managementyes Language / Communication: Language / CommunicationEnglish Electronic Signatures: Marietta Soria (RN) (Signed 10-May-2020 06:21) Authored: Preop Checklist Last Updated: 10-May-2020 06:21 by Marietta Soria (RN) [facility] Transesophageal Echoon 05-10 Transesophageal [place] [id number] TRANSESOPHAGEAL ECHOCARDIOGRAM REPORT Patient Name: WONG LOPEZILENE Cruz Physician: [id number] Ronnie Ambriz MD Study Date: 05/10/2020 Referring Physician: [id number] Tasneem Valdes MD, [facility] MRN/PID: [id number] PCP: oNrma Drake Accession/Order#: [id number] Department Location: [address] [place] [address] Date of : 1975 Fellow: Gender: F Nurse: Admit Date: 05/10/2020 Beer Still Runner Compounder: Chato Salinas Admission Status: Outpatient Additional Staff: Height: 172.00 cm CC Report to: [facility] EMCLocation Weight: 126.00 kg Study Type: Transesophageal Echo BSA: 2.34 m2 Blood Pressure: 99 /75 mmHg Diagnosis/ICD: I47.1-Supraventricular tachycardia Indication: SVT Procedure/CPT: STEPHAN Complete-[id number] Study Detail: The following Echo studies were performed: 2D, Doppler and color flow. Agitated saline used as a contrast agent for intraseptal flow evaluation. The patient was sedated. PHYSICIAN INTERPRETATION: STEPHAN Details: Technically adequate omniplane transesophageal echocardiogram performed. Agitated saline contrast and color flow Doppler echo was performed to assess for the presence of a patent foramen ovale. STEPHAN Medication: The pharynx was anesthetized with Cetacaine spray and viscous lidocaine. The patient was sedated using moderate sedation. Fentanyl and Midazolam was used to sedate the patient for this exam. STEPHAN Procedure: The probe was passed without difficulty. The patient tolerated the procedure well without any apparent complications. Left Ventricle: The left ventricular systolic function is normal, with an estimated ejection fraction of 60-65%. There are no regional wall motion abnormalities. The left ventricular cavity size is normal. Left ventricular diastolic filling was not assessed. Left Atrium: The left atrium is mildly dilated. There is no definite left atrial thrombus present. A bubble study using agitated saline was performed. Bubble study is positive. A moderate PFO (11-20 bubbles) was demonstrated. There is a normal sized left atrial appendage and there is no thrombus visualized in the left atrial appendage. Right Ventricle: The right ventricle is normal in size. There is normal right ventricular global systolic function. Right Atrium: The right atrium is normal in size. Aortic Valve: The aortic valve is trileaflet. There is no evidence of aortic valve regurgitation. Mitral Valve: The mitral valve is normal in structure. There is trace mitral valve regurgitation. Tricuspid Valve: The tricuspid valve is structurally normal. There is trace to mild tricuspid regurgitation. Pulmonic Valve: The pulmonic valve is not well visualized. There is no indication of pulmonic valve regurgitation. Pericardium: There is no pericardial effusion noted. Aorta: The aortic root is normal. There is no plaque visualized in the descending aorta which is classified as a Grade 1 (normal intimal thickness <2). CONCLUSIONS: 1. The left ventricular systolic function is normal with a 60-65% estimated ejection fraction. 2. No left atrial thrombus. 3. No GIANNI thrombus. 4. A bubble study using agitated saline was performed. Bubble study is positive. A moderate PFO (11-20 bubbles) was demonstrated. QUANTITATIVE DATA SUMMARY: [id number] Ronnie Ambriz MD Electronically signed on 05/10/2020 at 1:05:07 PM Final (Updated) Normal [facility] CORONAVIRUS 2018, SCREEN ASY MPTOMATICon 05-06-2020 Lab Specimen Source Nasal, Nasopharyngeal Normal [facility] Comment on above: Order Comment: TEST CORONAVIRUS 2018, SCREEN ASYMPTOMATIC WAS CANCELLED, 06/30/2020 15:32 DUPLICATE ORDER. Performed By: #### C OVSC #### [facility] [address] [place] [id number] CORONAVIRUS 2019, SCREEN ASY MPTOMATICon 05-05-2020 Lab Specimen Source Nasal, Nasopharyngeal Normal [facility] Comment on above: Order Comment: TEST CORONAVIRUS 2019, SCREEN ASYMPTOMATIC WAS CANCELLED, 06/30/2020 15:32 DUPLICATE ORDER. Performed By: #### C OVSC #### [facility] [address] [place] [id number] CORONAVIRUS 2019, SCREEN ASY MPTOMATICon 05-04-2020 Lab Specimen Source Nasal, Nasopharyngeal Normal [facility] Comment on above: Order Comment: TEST CORONAVIRUS 2019, SCREEN ASYMPTOMATIC WAS CANCELLED, 06/30/2020 15:32 DUPLICATE ORDER. Performed By: #### C OVSC #### [facility] [address] [place] [address] CORONAVIRUS 2019, SCREEN ASY MPTOMATICon 05-03-2020 Lab Specimen Source Nasal, Nasopharyngeal Normal [facility] Comment on above: Order Comment: TEST CORONAVIRUS 2019, SCREEN ASYMPTOMATIC WAS CANCELLED, 06/30/2020 15:33 DUPLICATE ORDER. Performed By: #### C OVSC #### [facility] [address] [place] [address] Vital Signs Date Time Vital Sign Value Performing Clinician Facility 08-02-2024 15:52-0500 Body height 172.7 cm Elena AVILA Work Phone: [facility] 08-02-2024 15:52-0500 Body mass index (BMI) [Ratio] 44.89 kg/m2 Elena AVILA Work Phone: [facility] 08-02-2024 15:52-0500 Body temperature 98.01 [degF] Elena AVILA Work Phone: [facility] 08-02-2024 15:52-0500 Body weight 133.9 kg Elena AVILA Work Phone: [facility] 08-02-2024 15:52-0500 Diastolic blood pressure 70 mm[Hg] Elena DOVESTONE AND CONCRETE WASHER Work Phone: [facility] 08-02-2024 15:52-0500 Heart rate 61 /min Elena Boyd APRN-STONE AND CONCRETE WASHER Work Phone: [facility] 08-02-2024 15:52-0500 Respiratory rate 18 /min Elena Body BARMAN-STONE AND CONCRETE WASHER Work Phone: [facility] 08-02-2024 15:52-0500 SaO2% (BldA) [Mass fraction] 98 % Elena Boyd APRN-STONE AND CONCRETE WASHER Work Phone: [facility] 08-02-2024 15:52-0500 Systolic blood pressure 100 mm[Hg] Elena Boyd APRN-STONE AND CONCRETE WASHER Work Phone: [facility] 07-16-2024 09:52-0500 Diastolic blood pressure 70 mm[Hg] Deyanira Aguilar MD Work Phone: [facility] 07-16-2024 09:52-0500 Systolic blood pressure 106 mm[Hg] Deyanira Aguilar MD Work Phone: [facility] 07-16-2024 09:51-0500 Body height 175.3 cm Deyanira Aguilar MD Work Phone: [facility] 07-16-2024 09:51-0500 Body mass index (BMI) [Ratio] 42.83 kg/m2 Deyanira Aguilar MD Work Phone: [facility] 07-16-2024 09:51-0500 Body weight 131.54 kg Deyanira Aguilar MD Work Phone: [facility] 07-16-2024 09:51-0500 Heart rate 47 /min Deyanira Aguilar MD Work Phone: [facility] 11-25-2023 11:43-0400 Body height 172.7 cm P[facility] 1 [facility] 11-25-2023 11:43-0400 Body mass index (BMI) [Ratio] 45.31 kg/m2 [facility] 1 [facility] 11-25-2023 11:43-0400 Body weight 135.17 kg Pmh 1 [facility] 11-18-2023 09:06-0400 Body height 172.7 cm Niecy Nathan BARMAN-STONE AND CONCRETE WASHER Work Phone: [facility] 11-18-2023 09:06-0400 Body mass index (BMI) [Ratio] 45.74 kg/m2 Niecy Nathan BARMAN-[employer]ONE AND CONCRETE WASHER Work Phone: [facility] 11-18-2023 09:06-0400 Body weight 136.44 kg Niecy Nathan BARMAN-STONE AND CONCRETE WASHER Work Phone: [facility] 11-18-2023 09:06-0400 Diastolic blood pressure 60 mm[Hg] Niecy Nathan BARMAN-STONE AND CONCRETE WASHER Work Phone: [facility] 11-18-2023 09:06-0400 Systolic blood pressure 117 mm[Hg] Niecy Nathan BARMAN-STONE AND CONCRETE WASHER Work Phone: [facility] 10-28-2023 07:43-0400 Body height 172.7 cm Norma Schafferprema BARMAN-PAYMENT COLLECTOR Work Phone: [facility] 10-28-2023 07:43-0400 Body mass index (BMI) [Ratio] 45.89 kg/m2 Norma Schafferprema BARMAN-PAYMENT COLLECTOR Work Phone: [facility] 10-28-2023 07:43-0400 Body temperature 98.71 [degF] Norma Vidal BARMAN-PAYMENT COLLECTOR Work Phone: [facility] 10-28-2023 07:43-0400 Body weight 136.9 kg Norma Vidal BARMAN-PAYMENT COLLECTOR Work Phone: [facility] 10-28-2023 07:43-0400 Diastolic blood pressure 60 mm[Hg] Norma Kuns BARMAN-PAYMENT COLLECTOR [facility] 10-28-2023 07:43-0400 Heart rate 64 /min Norma SIDHU Work Phone: [facility] [employer] 10-28-2023 07:43-0400 Respiratory rate 18 /min Norma SIDHU Work Phone: [facility] [employer] 10-28-2023 07:43-0400 SaO2% (BldA) [Mass fraction] 98 % Norma SIDHU [facility] 10-28-2023 07:43-0400 Systolic blood pressure 90 mm[Hg] Norma SIDHU Work Phone: [facility] [employer] [facility] 07-30-2023 16:26-0500 Body height 172.7 cm Asher Furlong DO Work Phone: [facility] [employer] 07-30-2023 16:26-0500 Body mass index (BMI) [Ratio] 46.98 kg/m2 Asher Furlong DO [facility] 07-30-2023 16:26-0500 Body temperature 97.39 [degF] Asher Furlong DO [facility] 07-30-2023 16:26-0500 Body weight 140.16 kg Asher Furlong DO Work Phone: [facility] [employer] 07-30-2023 16:26-0500 Diastolic blood pressure 70 mm[Hg] Asher Furlong DO [facility] 07-30-2023 16:26-0500 Heart rate 83 /min Asher Furlong DO [facility] 07-30-2023 16:26-0500 SaO2% (BldA) [Mass fraction] 99 % Asher Furlong DO Work Phone: [facility] 07-30-2023 16:26-0500 Systolic blood pressure 118 mm[Hg] Asher Mae DO Work Phone: [facility] Encounters Encounter Date Encounter Type Care Provider Facility Start: 11-16-2024 End: 11-16-2024 Refill Kinza Berry [facility] - [facility] Start: 11-15-2024 End: 11-15-2024 Refill Asher Tijerinaoclin DO Work Phone: [facility] Internal Medicine - Family [facility] Start: 09-25-2024 End: 09-25-2024 Emergency department patient visit [facility] Start: 08-02-2024 End: 08-02-2024 ambulatory [facility] Start: 08-02-2024 End: 08-02-2024 Office outpatient visit 15 minutes [facility] ZEENAT-MARIALUISA Work Phone: [facility] Internal Medicine [facility] Comment on above: Acute cystitis witho ut hematuria (Primary Dx); Dysuria; Subclinical hypothyroidism Start: 08-02-2024 End: 08-02-2024 ambulatory [facility] Start: 07-16-2024 End: 07-16-2024 ambulatory [facility] Start: 07-16-2024 End: 07-16-2024 Office outpatient new 45 minutes Deyanira Aguilar MD Work Phone: [facility] Comment on above: SVT (supraventricula r tachycardia) ([facility]); Sinus bradycardia; BMI 40.0-44.9, adult (Multi); Former smoker Start: 07-06-2024 End: 07-06-2024 Refill Bianca Jordan [facility] - [facility] Start: 05-03-2024 End: 05-03-2024 Refill Kinza Berry [facility] Start: 04-08-2024 End: 04-08-2024 ambulatory [facility] Start: 04-08-2024 End: 04-08-2024 Office outpatient visit 10 minutes Asher Mae DO Work Phone: [facility] - [facility] Comment on above: COVID-19 (Primary Dx ) Start: 04-07-2024 End: 04-07-2024 Telephone encounter Asher Mae DO [facility] Start: 02-19-2024 End: 02-19-2024 Orders Only Asher Mae DO Work Phone: [facility] - Family Medicine Start: 02-16-2024 End: 02-16-2024 ambulatory [facility] Start: 02-16-2024 End: 02-16-2024 Patient encounter procedure Asher Mae DO Work [facility] Comment on above: Urinary symptom or s ign (Primary Dx) Start: 02-16-2024 End: 02-16-2024 ambulatory [facility] Comment on above: Urinary symptom or s ign (Primary Dx) Start: 12-30-2023 End: 12-30-2023 Refill Norma Drake BARMAN-PAYMENT COLLECTOR Work Phone: [facility] - Family Medicine Start: 12-04-2023 End: 12-04-[address] Chappell CMA [facility] General Surgery Start: 12-02-2023 End: 12-02-2023 Evaluation and management of inpatient ANTONI MENCHACA [facility] Start: 12-01-2023 End: 12-02-2023 Evaluation and management of inpatient CHATO IRCHDL [facility] Start: 11-25-2023 End: 11-25-2023 ambulatory [facility] Pat Phone Call Provider 1 [facility] - Pre Admit Start: 11-25-2023 End: 11-25-2023 ambulatory [facility] Start: 11-18-2023 End: 11-18-2023 ambulatory [facility] Derek NATHAN [facility] Start: 11-18-2023 End: 11-18-2023 Office outpatient new 30 minutes Niecy Nathan BARMAN-STONE AND CONCRETE WASHER Work Phone: [facility] General Surgery Comment on above: Colitis with rectal bleeding (Primary Dx); Lower abdominal pain Start: 10-29-2023 Orders Only Norma Drake BARMAN-PAYMENT COLLECTOR Work Phone: [facility] - Family Medicine Comment on above: Vitamin B12 deficien cy (Primary Dx) Start: 10-28-2023 End: 10-28-2023 ambulatory [facility] Start: 10-28-2023 Encounter for genera l adult medical examination without abnormal findings [facility] Start: 10-28-2023 End: 10-28-2023 Patient encounter procedure Norma Schaffer BARMAN-PAYMENT COLLECTOR Work Phone: [facility] [employer] Work Phone: Start: 10-28-2023 End: 10-28-2023 Periodic preventive med est patient 40-64yrs Norma Drake BARMAN-PAYMENT COLLECTOR Work Phone: [facility] - [facility] Comment on above: Visit for [facility] examination (Primary Dx); Morbid obesity (CMS-HCC); Colitis with rectal bleeding; Subclinical hypothyroidism; Vitamin D deficiency; Neuropathy; Tachyarrhythmia Start: 10-28-2023 End: 10-28-2023 ambulatory [facility] Start: 10-28-2023 Encounter for genera l adult medical examination without abnormal findings [facility] Start: 07-30-2023 End: 07-30-2023 Office outpatient visit 5 minutes Asher Mae DO Work Phone: [facility] - [facility] Comment on above: Symptoms of urinary tract infection (Primary Dx) Start: 11-02-2022 End: 11-03-2022 ambulatory [facility] . Facility: Procedures Date Procedure Procedure Detail Performing Clinician Start: 08-02-2024 Urnls dip stick/tabl et rgnt non-auto w/o micrscp Elena Boyd BARMAN-STONE AND CONCRETE WASHER Work Phone: Start: 07-16-2024 Ecg routine ecg w/le ast 12 lds w/i&r Deyanira Aguilar MD Work Phone: Start: 02-16-2024 Urnls dip stick/tabl et rgnt non-auto w/o micrscp Asher G Furlong DO Work Phone: Start: 12-01-[address] Ruiz ia [employer] Start: 10-28-2023 Adult depression scr eening assessment Norma Drake BARMAN-PAYMENT COLLECTOR Work Phone: Start: 07-30-2023 Urnls dip stick/tabl et rgnt non-auto w/o micrscp Asher Hitesh Furlong DO Work Phone: Start: 01-10-2023 Mammography Asher Fur long DO Work Phone: Start: 12-23-2022 Adult depression scr eening assessment Ashertari Tijerinalong DO Work Phone: Plan of Treatment Date Care Activity Detail Author Start: 11-30-2033 Screening for malign ant neoplasm of colon [facility] Start: 11-30-2028 Screening for malign ant neoplasm of colon Colonoscopy [facility] Start: 02-05-2026 Zoster Vaccines (1 of 2) Zoster Vacc maida (1 of 2) [facility] Start: 09-25-2025 Adult BMI Screening Adult BMI Screen ing [facility] Start: 08-02-2025 Adult BMI Follow Up Plan Adult BMI F ollow Up Plan [facility] Start: 08-02-2025 Adult BMI Screening Adult BMI Screen ing [facility] Start: 08-02-2025 Tobacco Screening Tobacco Screening [facility] Start: 04-08-2025 Tobacco Screening Tobacco Screening [facility] Start: 11-30-2024 Adult BMI Screening Adult BMI Screen ing [facility] Start: 11-30-2024 Tobacco Screening Tobacco Screening [facility] Start: 11-24-2024 Adult BMI Screening Adult BMI Screen ing [facility] Start: 11-24-2024 Tobacco Screening Tobacco Screening [facility] Start: 11-17-2024 Adult BMI Screening Adult BMI Screen ing [facility] Start: 11-17-2024 Tobacco Screening Tobacco Screening [facility] Start: 10-27-2024 Adult BMI Follow Up Plan Adult BMI F ollow Up Plan [facility] Start: 10-27-2024 Adult BMI Screening Adult BMI Screen ing [facility] Start: 10-27-2024 Depression Screening Depression Scre ening [facility] Start: 10-27-2024 Tobacco Screening Tobacco Screening [facility] Start: 10-05-2024 End: 10-05-2024 Patient encounter procedure 10/05/2024 11:30 AM EST [address] [place] [id number] Deyanira Aguilar MD [address] [facility] [address] [place] [address] [facility] Start: 07-30-2024 Adult BMI Screening Adult BMI Screen ing [facility] Start: 07-23-2024 Tobacco Screening Tobacco Screening [facility] Start: 04-08-2024 End: 04-08-2024 Telemedicine consultation with patient 04/08/2024 10:30 AM EDT Tele[facility]icine [facility] [address] [place] [address] Asher Mae DO [address] [place] [address] [facility] Start: 04-04-2024 COVID-19 Vaccine ( season) COVID-19 Vaccine ( season) [facility] Start: 04-04-2024 Influenza vaccination Influenza Vacc ine (#1) [facility] Start: 01-11-2024 Screening for malign ant neoplasm of breast Mammogram [facility] Start: 12-24-2023 Depression Screening Depression Scre [facility] Start: 12-01-2023 End: 12-01-2023 Admission to same day surgery center 12/01/2023 12:30 PM EDT - 12/01/2023 1:00 PM EDT Surgery [facility] Surgery [address] [place] [id number], DO [address] [place], [place] [id number] COLONOSCOPY DIAGNOSTIC / SCREENING [59961 (CPT )] [facility] Comment on above: COLONOSCOPY DIAGNOST IC / SCREENING [53636 (CPT )] Start: 12-01-2023 End: 12-01-2023 Colonoscopy flx dx w/collj spec when pfrmd COLONOSCOPY DIAGNOSTIC / SCREENING colitis, rectal bleeding 12/01/2023 12:30 PM EDT [facility] Start: 12-01-2023 Subsequent hospital visit by physician 12/01/2023 12:30 PM EDT Hospital Encounter [facility] Surgery [address] [place] [phone], [address] [place], [place] [id number] [facility] Start: 11-25-2023 End: 11-25-2023 ambulatory 11/25/2023 2:30 PM EDT Support Visit [facility] - Pre Admit [address] [place] [phone] [facility] - Pre Admit Start: 11-18-2023 End: 11-18-2023 Patient encounter procedure 11/18/2023 9:00 AM EDT Office Visit [facility] General Surgery [address] [facility] [place] [phone] Niecy Nathan, BARMAN-STONE AND CONCRETE WASHER [address] [place] [address] [facility] Start: 06-03-2006 Hepatitis B Vaccines (2 of 3 - Hep B Twinrix 3-dose series) Hepatitis B Vaccines (2 of 3 - Hep B Twinrix 3-dose series) [facility] Start: 02-05-1998 DTaP/Tdap/Td Vaccine s (1 - Tdap) DTaP/Tdap/Td Vaccines (1 - Tdap) [facility] Start: 02-05-1997 Screening for malign ant neoplasm of cervix [facility] Start: 02-05-1995 DTaP,Tdap and Td Vaccines (1 - Tdap) DTaP,Tdap and Td Vaccines (1 - Tdap) [facility] [employer] [facility] Start: 02-05-1994 Adult BMI Follow Up Plan Adult BMI F ollow Up Plan [facility] Start: 02-05-1994 Diabetes mellitus screening Diabetes Screening [facility] Start: 02-05-1994 Hepatitis C screening Hepatitis C Sc reening [facility] Start: 02-05-1977 MMR Vaccines (1 of 1 - Standard series) MMR Vaccines (1 of 1 - Standard series) [facility] Start: 1976 HIV screening HIV Screening [facility] Start: 1976 Lipid panel Lipid Panel [facility] Start: 1975 Screening for malign ant neoplasm of colon [facility] Start: 1975 Yearly Adult Physical Yearly Adult P hysical [facility] End: 08-02-2025 Bacteria identified in Urine by Culture Urine culture (clean catch) Microbiology Routine Acute cystitis without hematuria 1 Occurrences starting 08/02/2024 until 08/02/2025 [employer] Work Phone: Comment on above: 1 Occurrences starti ng 08/02/2024 until 08/02/2025 End: 02-15-2025 Bacteria identified in Urine by Culture Urine culture (clean catch) Microbiology Routine Urinary symptom or sign 1 Occurrences starting 02/16/2024 until 02/15/2025 [employer] Work Phone: Comment on above: 1 Occurrences starti ng 02/16/2024 until 02/15/2025 Bacteria identified in Urine by Culture Urine culture (clean catch) Microbiology Routine Urinary symptom or sign 02/16/2024 9:06 PM EDT [facility] End: 10-27-2024 CBC W Auto Differential panel - Blood CBC auto differential Lab Routine Colitis with rectal bleeding 1 Occurrences starting 10/28/2023 until 10/27/2024 [facility] Comment on above: 1 Occurrences starti ng 10/28/2023 until 10/27/2024 End: 11-17-2024 Colonoscopy Colonoscopy GI Routine Colitis with rectal bleeding 1 Occurrences starting 11/18/2023 until 11/17/2024 [employer] Work Phone: Comment on above: 1 Occurrences starti ng 11/18/2023 until 11/17/2024 End: 10-27-2024 Comprehensive metabolic 2000 panel - Serum or Plasma Comprehensive metabolic panel Lab Routine Visit for annual health examination 1 Occurrences starting 10/28/2023 until 10/27/2024 [employer] Work Phone: Comment on above: 1 Occurrences starti ng 10/28/2023 until 10/27/2024 End: 10-27-2024 Cyanocobalamin vitamin b-12 Vitamin B12 Lab Routine Neuropathy 1 Occurrences starting 10/28/2023 until 10/27/2024 [facility] Comment on above: 1 Occurrences starti ng 10/28/2023 until 10/27/2024 End: 10-27-2024 Lipid panel Lipid panel Lab Routine Visit for annual health examination 1 Occurrences starting 10/28/2023 until 10/27/2024 [facility] Comment on above: 1 Occurrences starti ng 10/28/2023 until 10/27/2024 End: 08-02-2025 Thyroid profile includes TSH FT4 Thyroid profile includes TSH FT4 Lab Routine Subclinical hypothyroidism 1 Occurrences starting 08/02/2024 until 08/02/2025 [facility] Comment on above: 1 Occurrences starti ng 08/02/2024 until 08/02/2025 End: 10-27-2024 Thyroid profile includes TSH FT4 Thyroid profile includes TSH FT4 Lab Routine Subclinical hypothyroidism 1 Occurrences starting 10/28/2023 until 10/27/2024 [facility] Comment on above: 1 Occurrences starti ng 10/28/2023 until 10/27/2024 End: 10-27-2024 Vitamin D 25 hydroxy Vitamin D 25 hydroxy Lab Routine Vitamin D deficiency 1 Occurrences starting 10/28/2023 until 10/27/2024 [facility] Comment on above: 1 Occurrences starti ng 10/28/2023 until 10/27/2024 Immunizations Immunization Date Immunization Notes Care Provider Casimiro garza 03-24-2017 influenza, seasonal, injectable Asher Furlong DO [facility] 03-24-2017 influenza virus vaccine, unspecified formulation Deyanira Aguilar MD Work Phone: [facility] Work Phone: 05-23-2015 influenza, seasonal, injectable, preservative free Asher Furlong DO [facility] 05-06-2006 hepatitis A and hepatitis B vaccine Asher Furlong DO [facility] Payers Date Payer Category Payer Unknown [id number] 2024 [facility] Care (Private) [employer] [id number] 2023 Managed Care HMO (unspecified) [id number] 2023 Unknown ELIO MARTINEZ [facility]AP[facility] ELIO THOMAS [facility] [id number] 2023-Present [phone] [address] [place] [address] [id number] 2023 Unknown [id number] 1976 Unknown [id number] 2.16.840.1.811355.3.579.2. 593 1976 Unknown [id number] 2.16.840.1.144304.3.579.2. 1244 1976 Unknown [id number] 2.16.840.1.665951.3.579.2. 1285 1976 Unknown [id number] 2.16.840.1.328821.3.579.2. 1285 1976 Unknown [id number] 2.16.840.1.937030.3.579.2. 1285 1976 Unknown [id number] 2.16.840.1.491475.3.579.2. 1285 1976 Unknown [id number] 2.16.840.1.812302.3.579.2. 1285 1976 Unknown [id number] 2.16.840.1.490982.3.579.2. 1285 1976 Unknown [id number] 2.16.840.1.835218.3.579.2. 1285 1976 Unknown [id number] 2.16.840.1.584269.3.579.2. 1285 1976 Unknown [id number] 2.16.840.1.486137.3.579.2. 1285 1976 Unknown [id number] 2.16.840.1.168413.3.579.2. 1285 1976 Unknown [id number] 2.16.840.1.359790.3.579.2. 1285 1976 Unknown [id number] 2.16.840.1.365979.3.579.2. 12851976 Unknown [id number] 2.16.840.1.565655.3.579.2. 1286 1976 Unknown [id number] 2.16.840.1.412853.3.579.2. 1286 1959 Unknown [id number] Social History Date Type Detail Facility Start: 07-16-2024 Tobacco smoking status NHIS Ex-smoker [facility] History of tobacco use Current smoker [facility] Work Phone: History of tobacco use Cigarette Smoker [facility] Work Phone: Start: 10-07-2022 End: 07-16-2024 Tobacco use and exposure Smokeless tobacco non-user [facility] Start: 07-16-2024 End: 08-02-2024 Alcoholic beverage intake Current drinker of alcohol (finding) [facility] Start: 07-16-2024 Alcohol Comment occ [facility] Work Phone: Start: 1975 Sex assigned at Not on file [facility] Start: 06-24-2022 End: 09-25-2024 Gender identity Not on file [facility] Start: 07-06-2024 End: 07-16-2024 Exposure to SARS-CoV-2 (event) Not sure [facility] Start: 10-07-2022 Tobacco smoking status CTIS Never smoked tobacco [facility] Start: 06-24-2022 End: 09-25-2024 History of Social function [facility] Do you belong to any clubs or organizations such as islam groups, unions, fraternal or athletic groups, or school groups? No [facility] Are you now , , , , never or living with a partner? [facility] How often to you hav e a drink containing alcohol? Monthly or less [facility] How many standard dr inks containing alcohol do you have on a typical day? Patient does not drink [facility] How often do you hav e 6 or more drinks on 1 occasion? Never [facility] How hard is it for y ou to pay for the very basics like food, housing, medical care, and heating Somewhat hard [facility] Do you feel stress - tense, restless, nervous, or anxious, or unable to sleep at night because your mind is troubled all the time - these days [OSQ] Very much [facility] Start: 06-24-2022 Education 15 [facility] Start: 04-30-2022 Alcohol Comment Occasional [facility] Start: 03-09-2015 Sex Female (finding) [facility] Clinical Notes 07-30-2023 to 11-15-2024 Telephone Encounter - Asher Mae DO - 11/15/2024 8:39 AM EDTTelephone Encounter - Asher Mae DO - 11/15/2024 8:39 AM EDTAUSTIN Pascal - 08/02/2024 4:00 PM EST Note Date & Type Note Facility 11-15-2024 Miscellaneous Notes Rx sent in. She is due for a wellness documented in this encounter [facility] 11-15-2024 Telephone encounter Note Rx sent in. She is due for a wellness [facility] 08-02-2024 History of Presen t illness Narrative Images from the original note were not included. [address] [place] [address] SUBJECTIVE: Patient ID: Esme Loza is a 49 y.o. female. Chief Complaint Patient presents with Urinary Tract Infection possible Presents for symptoms of UTI States her symptoms started yesterday with bloating sensation, dysuria, waves of nausea. Alleviating methods tried is Cystex and increasing fluids. Additional concerns today; she would like thyroid labs checked as she feels like her thyroid may be off . Urinary Tract Infection This is a new problem. The current episode started in the past 7 days. The problem occurs every urination. The problem has been waxing and waning. The quality of the pain is described as burning and aching. The pain is moderate. There has been no fever. Associated symptoms include flank pain, frequency, hesitancy, nausea and urgency. Pertinent negatives include no chills. She has tried increased fluids for the symptoms. The treatment provided mild relief. The following portions of the patient's history were reviewed and updated as appropriate: allergies, current medications, past family history, past medical history, past social history, past surgical history and problem list. Past Surgical History: Procedure Laterality Date APPENDECTOMY COLONOSCOPY DIAGNOSTIC / SCREENING N/A 12/01/[address] DO at [facility] HYSTERECTOMY OOPHORECTOMY unilateral Past Medical History: Diagnosis Date Acute otitis media Arrhythmia Depression GERD (gastroesophageal reflux disease) Hypothyroidism Prolonged emergence from general anesthesia Sciatica Tachyarrhythmia Vitamin D deficiency Immunization History Administered Date(s) Administered Hep A / Hep B 05/06/2006 Influenza (IM) Preservative Free 05/23/2015 Influenza, Im Trivalent Preservative 03/24/2017 REVIEW OF SYSTEMS: Review of Systems Constitutional: Negative for chills and fever. HENT: Negative. Eyes: Negative for visual disturbance. Respiratory: Negative for chest tightness and shortness of breath. Cardiovascular: Negative for chest pain and palpitations. Gastrointestinal: Positive for nausea. Endocrine: Negative. Genitourinary: Positive for flank pain, frequency, hesitancy and urgency. Negative for menstrual problem and pelvic pain. Skin: Negative. Allergic/Immunologic: Negative. Neurological: Negative for syncope and facial asymmetry. Hematological: Does not bruise/bleed easily. Psychiatric/Behavioral: Negative. PHYSICAL EXAMINATION: Vitals: 08/02/24 1552 BP: 100/70 BP Site: Left Arm BP Postition: Sitting Pulse: 61 Resp: 18 Temp: 36.7 C (98 F) TempSrc: Oral SpO2: 98% Weight: 133.9 kg (295 lb 3.2 oz) Height: 172.7 cm (5' 8 ) Patient noted to have elevated BMI and the following intervention(s) were applied: encouragement to exercise. Physical Exam Vitals and nursing note reviewed. Constitutional: General: She is not in acute distress. Appearance: She is well-developed. She is not diaphoretic. HENT: Head: Normocephalic and atraumatic. Right Ear: Tympanic membrane and external ear normal. Left Ear: Tympanic membrane and external ear normal. Nose: Nose normal. Mouth/Throat: Mouth: Mucous membranes are moist. Pharynx: No oropharyngeal exudate. Eyes: General: Right eye: No discharge. Left eye: No discharge. Conjunctiva/sclera: Conjunctivae normal. Pupils: Pupils are equal, round, and reactive to light. Neck: Thyroid: No thyromegaly. Vascular: No JVD. Cardiovascular: Rate and Rhythm: Normal rate and regular rhythm. Heart sounds: Normal heart sounds. No murmur heard. No friction rub. No gallop. Pulmonary: Effort: Pulmonary effort is normal. Breath sounds: Normal breath sounds. Abdominal: General: Bowel sounds are normal. There is no distension. Palpations: Abdomen is soft. There is no mass. Tenderness: There is no abdominal tenderness. Musculoskeletal: General: Normal range of motion. Cervical back: Normal range of motion and neck supple. Lymphadenopathy: Cervical: No cervical adenopathy. Skin: General: Skin is warm and dry. Capillary Refill: Capillary refill takes less than 2 seconds. Neurological: Mental Status: She is alert and oriented to person, place, and time. Deep Tendon Reflexes: Reflexes are normal and symmetric. Psychiatric: Mood and Affect: Mood normal. Behavior: Behavior normal. Thought Content: Thought content normal. Judgment: Judgment normal. ASSESSMENT/PLAN: Esme was seen today for urinary tract infection. Diagnoses and all orders for this visit: Dysuria - POCT urinalysis dipstick only Acute cystitis without hematuria - Urine culture (clean catch); Future - sulfamethoxazole-trimethoprim (BACTRIM DS) 800-160 mg per tablet; Take 1 tablet by mouth in the morning and 1 tablet before bedtime. Do all this for 7 days. Subclinical hypothyroidism - Thyroid profile includes TSH FT4; Future UTI Urine dip reveals small leukocyte esterase, trace blood Start Bactrim DS as directed until gone Continue to increase fluids Send urine for culture Subclinical hypothyroidism -Check thyroid panel -Continue levothyroxine 25 mcg oral daily ALL QUESTIONS ANSWERED Total time spent was 25 minutes: Preparing to see the patient (e.g., review of tests) Obtaining and/or reviewing separately obtained history Performing a medically appropriate examination and/or evaluation Counseling and educating the patient/family/caregiver Ordering medications, tests, or procedures Follow-up: Next scheduled Sooner if no improvement AUSTIN Pascal 08/02/24 1620 documented in this encounter [facility] 07-16-2024 History of Presen t illness Narrative Cardiology Consultation- New Consult Reason for referral: Patient is here for cardiac vascular evaluation for SVT and palpitation HPI: Wong Loza is a 49 y.o. female well-known to me. I have seen her for years ago for similar situation. She had a history of documented SVT with tendency for bradycardia when she is in sinus rhythm even on low-dose beta-ramiro. She underwent an attempt to do ablation but it was aborted because of difficult vascular access and difficulty sedating the patient. Over the last few years the patient report her symptoms is reasonably controlled on atenolol 50 mg daily however recently she has noticed her heart rate is in the mid to upper 30s and was feeling weak and fatigue so she self cut down the dose to have. She is currently on atenolol 25 mg daily her heart rate in the upper 40s low 50s. She continued to experience episode of palpitation intermittently. She denies any lightheadedness, dizziness or syncope. Assessment 1. History of documented supraventricular tachycardia with tendency for bradycardia with mild tachybradycardia syndrome she recently reduced the dose of atenolol and noticed slight increase of her palpitation and tachycardia 2. Morbid obesity 3. Sinus bradycardia 4. Hypothyroidism on replacement therapy Plan 1. I had lengthy discussion with the patient regarding treatment option. We discussed either to continue present medical regimen for a while and see and reassess her response in few month, versus switching her to antiarrhythmic and I suggested Rythmol considering it does not cause bradycardia versus referral again for an ablation at tertiary care hospital. The option discussed with her at great length. For the time being she elected to remain on atenolol but will notify me if she has a change in heart 2. We discussed risk factor modification and the importance of weight loss, exercise and dietary modification 3. Follow-up in 3 to 4 months Past Medical History: She has no past medical history on file. Surgical History: She has a past surgical history that includes Continent appendicostomy; Hysterectomy; Ablation of dysrhythmic focus; and Back surgery. Family History: Family History Problem Relation Name Age of Onset Aneurysm Mother Stroke Mother Hypotension Father Bipolar disorder Father Cancer Father Stroke Sister Stroke Brother Cancer Maternal Grandmother Diabetes type I Maternal Grandmother Cancer Paternal Grandmother Diabetes type I Paternal Grandmother Heart failure Other Social History: Social History Tobacco Use Smoking status: Former Types: Cigarettes Smokeless tobacco: Never Substance Use Topics Alcohol use: Yes Comment: occ Allergies: Gabapentin Current Medications: Current Outpatient Medications: atenolol (Tenormin) 25 mg tablet, Take 1 tablet (25 mg) by mouth once daily., Disp: , Rfl: cholecalciferol (Vitamin D-3) 125 mcg (5000 UT) capsule, Take 2 capsules (250 mcg) by mouth once daily., Disp: , Rfl: cyanocobalamin (Vitamin B-12) 1,000 mcg tablet, Take 1 tablet (1,000 mcg) by mouth once daily., Disp: , Rfl: famotidine (Pepcid) 20 mg tablet, Take 1 tablet (20 mg) by mouth twice a day., Disp: , Rfl: levothyroxine (Synthroid, Levoxyl) 25 mcg tablet, Take 1 tablet (25 mcg) by mouth once daily., Disp: , Rfl: loratadine (Claritin) 10 mg tablet, Take 1 tablet (10 mg) by mouth once daily., Disp: , Rfl: Vitals: Vitals: 07/16/24 0951 07/16/24 0952 BP: 108/74 106/70 BP Location: Left arm Right arm Patient Position: Sitting Sitting Pulse: (!) 47 Weight: 132 kg (290 lb) Height: 1.753 m (5' 9 ) Review of Systems Cardiovascular: Positive for palpitations. Respiratory: Positive for shortness of breath. Neurological: Positive for dizziness. All other systems reviewed and are negative. Objective Physical Exam Constitutional: Appearance: Normal appearance. HENT: Nose: Nose normal. Neck: Vascular: No carotid bruit. Cardiovascular: Rate and Rhythm: Normal rate. Pulses: Normal pulses. Heart sounds: Normal heart sounds. Pulmonary: Effort: Pulmonary effort is normal. Abdominal: General: Bowel sounds are normal. Palpations: Abdomen is soft. Musculoskeletal: General: Normal range of motion. Cervical back: Normal range of motion. Right lower leg: No edema. Left lower leg: No edema. Skin: General: Skin is warm and dry. Neurological: General: No focal deficit present. Mental Status: She is alert. Psychiatric: Mood and Affect: Mood normal. Behavior: Behavior normal. Thought Content: Thought content normal. Judgment: Judgment normal. Assessment and Plan: 1. SVT (supraventricular tachycardia) (CMS-HCC) Follow Up In Cardiology ECG 12 Lead 2. Sinus bradycardia ECG 12 Lead 3. BMI 40.0-44.9, adult (Multi) 4. Former smoker Scribe Attestation By signing my name below, I, Roslyn Thakkar LPN , [employer] attest that this documentation has been prepared under the direction and in the presence of Deyanira Aguilar MD. Provider Attestation - Scribe documentation All medical record entries made by the Scribe were at my direction and personally dictated by me. I have reviewed the chart and agree that the record accurately reflects my personal performance of the history, physical exam, discussion and plan. documented in this encounter [facility] Work Phone: 07-16-2024 Instructions Roslyn Paul LPN - 07/16/2024 9:30 AM EST Please bring all medicines, vitamins, and herbal supplements with you when you come to the office. Prescriptions will not be filled unless you are compliant with your follow up appointments or have a follow up appointment scheduled as per instruction of your physician. Refills should be requested at the time of your visit. BMI was above normal measurement. Current weight: 132 kg (290 lb) Weight change since last visit (-) denotes wt loss 12.88 lbs Weight loss needed to achieve BMI 25: 121.1 Lbs Weight loss needed to achieve BMI 30: 87.3 Lbs Provided instructions on dietary changes Provided instructions on exercise. Ablation discussed Follow up documented in this encounter [facility] Work Phone: 04-08-2024 History of Presen t illness Narrative Subjective Video Visit via Real-time Synchronous Audiovisual Provider Location: [facility] [address] [facility] [address] Patient Location: Patient's home Video Visit Consent Statement: I discussed risks, benefits, and alternatives of a real-time synchronous audiovisual consultation with the patient (and any accompanying persons) including the risks that the patient's personal health details and medical records will be discussed over real-time, synchronous, interactive video/audio/telecommunication technology, the visit will not be recorded without the express consent of both the provider and the patient, and that there are some limitations compared to [id number] evaluations. The patient consented to the presence of additional virtual and/or in-person participants. We elected to proceed. Patient ID: Esme Loza is a 49 y.o. female. Esme agrees to a telehealth visit. She started with symptoms on Friday. She thought it was sinuses and didn't feel too bad on Friday and Friday. Then woke up on Friday with fever, chills, sweating, myalgias and nausea. Her ears hurt too. Took a covid test and it was positive. She had Covid in 2020 and received monoclonal antibodies in the emergency room. She has +cough with green phlegm. Chest feels tight and heavy at times. Pulse ox is 98% on room air. Using tylenol, ibuprofen and loratadine with no significant improvement improvement. She would like Paxlovid. The following portions of the patient's history were reviewed and updated as appropriate: allergies, current medications, past family history, past medical history, past social history, past surgical history, problem list, and medication reconciliation was completed including current medication and post discharge medication. Review of Systems Constitutional: Positive for fever (No documented temperature though). HENT: Positive for congestion and ear pain. Respiratory: Positive for cough and chest tightness. Negative for shortness of breath. Gastrointestinal: Positive for nausea. Musculoskeletal: Positive for myalgias. Objective Physical Exam Vitals reviewed. Constitutional: General: She is not in acute distress. Appearance: She is ill-appearing (mildly). HENT: Head: Normocephalic. Neurological: General: No focal deficit present. Mental Status: She is oriented to person, place, and time. Assessment/Plan Diagnoses and all orders for this visit: COVID-19 Patient tested positive for COVID-19. She has risk factors for complications. She has a candidate for Paxlovid. Risks and benefits discussed. She wants to take it. If she gets shortness a breath she should go to the emergency room. I would stop the ibuprofen and just stick with Tylenol. She can add Robitussin DM for the cough. She agreed to the plan. Other orders - nirmatrelvir-ritonavir (PAXLOVID) tablets; Take 3 tablets by mouth in the morning and 3 tablets before bedtime. Do all this for 5 days. For doses of 3 tablets - Take two 150 mg nirmatrelvir (pink) tablets at the same time as one 100 mg ritonavir (white) tablet per dose.. - atenoloL (TENORMIN) 50 mg tablet; Take 0.5 tablets (25 mg total) by mouth in the morning. documented in this encounter [facility] 04-07-2024 Miscellaneous Notes Patient tested positive for covid this morning, would you be able to send in paxlovid for her. She would be okay doing video visit if we need to Put her in tomorrow for a video visit Scheduled documented in this encounter [facility] 04-07-2024 Telephone encounter Note Patient tested positive for covid this morning, would you be able to send in paxlovid for her. She would be okay doing video visit if we need to [facility] 04-07-2024 Telephone encounter Note [facility] her [facility] a [facility] Work Phone: 04-07-2024 Telephone encounter Note Scheduled [facility] 02-16-2024 History of Presen t illness Narrative Patient thinks she has a urinary tract infection so she came in to provide a urine specimen documented in this encounter [facility] 12-04-2023 Miscellaneous Notes ----- Message from Chato Lane DO sent at 12/04/2023 7:08 AM EDT ----- Please let patient know that she had a few polyps which are benign and I recommend repeat surveillance colonoscopy in 5 years unless problems. Thanks, Dr. Proctor Spoke with patient regarding pathology results. Patient verbally understood with no further questions. Recall will be put in chart. documented in this encounter [facility] 12-04-2023 Telephone encounter Note ----- Message from Chato Lane DO sent at 12/04/2023 7:08 AM EDT ----- Please let patient know that she had a few polyps which are benign and I recommend repeat surveillance colonoscopy in 5 years unless problems. Thanks, Dr. Proctor [facility] 12-04-2023 Telephone encounter Note Spoke with patient regarding pathology results. Patient verbally understood with no further questions. Recall will be put in chart. [facility] 11-25-2023 Miscellaneous Notes Preoperative Education Checklist- General Surgery date: 12/01/23 Surgery time: 1230 Arrival time: 1030 1. Bring a photo ID and your insurance card with you the day of surgery. You will check in at the main lobby of the [facility]- registration desk is straight ahead as soon as you walk in. Tell them you are here for surgery. 2. If you have a Living Will/Durable Power of [employer] [employer] for Health Care that is not on file here, please bring a copy the day of surgery. 3. Please shower/bathe the night before surgery with the provided soap or wipes. Do not shower the morning of surgery- you will do use wipes when you arrive here at the hospital before getting into your surgical gown. Do not shave the area of your procedure for 2 days prior to your surgery. 4. NO powder, lotion, perfume/cologne, aftershave, make-up, deodorant, or hair products after you have bathed. 5. NO nail algerian/acrylic on at least one finger. If you are having a hand, wrist or foot surgery then all nail algerian and artificial/acrylic nails must be removed from that hand or foot. 6. Avoid ALL Aspirin and non-steroidal anti-inflammatory drugs and certain vitamins (Ibuprofen, Advil, Aleve, Excedrin, Meloxicam, Celebrex, fish/krill oil, etc.) for 7 days prior to surgery as instructed by your surgeon and/or your prescribing doctor. Tylenol IS ALLOWED. If you are on Ticlid, Xarelto, Eliquis, Pradaxa, Plavix or Coumadin, please check with your prescribing doctor for instructions for when to stop them. 7. If you use an inhaler, continue to use it routinely. 8. Nothing to eat or drink (not even water, gum, mints, or hard candy!) AFTER midnight prior to your surgery. 9. Take only medications that you are instructed to on the morning of surgery with a TINY SIP OF WATER. 10. Choose a responsible adult that will be able to drive you home when you are discharged from your hospital stay for your surgery and can stay with you in your home for 24 hours after your procedure. You must NOT drive any vehicle or operate any machinery for 24 hours after surgery. 11. When you dress for your appointment, please wear loose fitting clothing that is appropriate to accommodate your surgical area procedure. BRING WITH YOU ANY DEVICES YOU MAY NEED: KELSIE hose, ice machine, sling/swath, brace or special shoe, oversized zip-up or button up shirt, CPAP machine if staying overnight. 12. Do NOT wear jewelry, watches, or any piercings or metal for surgery- leave these valuables and money at home. 13. Do NOT wear contact lenses for surgery- glasses are okay if needed. 14. The anesthesiologist will talk with you the day of surgery and will ask you to sign a Consent Form. 15. Refrain from smoking or any type of tobacco use for at least 8 hours and marijuana for 24 hours prior to arrival for your surgery. 16. If a GREEN BLOOD band is given to you, please bring it with you for the day of surgery. 17. Notify your surgeon if you develop any illness before your surgery. 18. If you are staying overnight, please DO NOT BRING your home medications with you. 19. If you have any questions prior to surgery, please call the Preadmission Testing office at [phone], Mon.-Fri. 7 a.m.-3 p.m. Leave a voicemail if needed. Pre-Surgery Instructions: Medication Instructions atenoloL (TENORMIN) 50 mg tablet Stop taking 0 days prior to procedure cholecalciferol, vitamin D3, (VITAMIN D3) 5,000 units capsule Stop taking 0 days prior to procedure cyanocobalamin (vitamin B-12) 1000 MCG tablet Stop taking 0 days prior to procedure dicyclomine (BENTYL) 20 mg tablet Stop taking 0 days prior to procedure famotidine (PEPCID) 20 mg tablet Stop taking 0 days prior to procedure levothyroxine (SYNTHROID, LEVOTHROID) 25 MCG tablet Stop taking 0 days prior to procedure loratadine (CLARITIN) 10 mg tablet Stop taking 0 days prior to procedure ondansetron ODT (ZOFRAN ODT) 4 mg disintegrating tablet Stop taking 0 days prior to procedure sod sulf-pot chloride-mag sulf 1.479-0.188- 0.225 gram tablet Stop taking 0 days prior to procedure documented in this encounter [facility] 11-25-2023 Nurse Note Preoperative Education Checklist- General Surgery date: 12/01/23 Surgery time: 1230 Arrival time: 1030 1. Bring a photo ID and your insurance card with you the day of surgery. You will check in at the main lobby of the [facility]- registration desk is straight ahead as soon as you walk in. Tell them you are here for surgery. 2. If you have a Living Will/Durable Power of [place] for Health Care that is not on file here, please bring a copy the day of surgery. 3. Please shower/bathe the night before surgery with the provided soap or wipes. Do not shower the morning of surgery- you will do use wipes when you arrive here at the hospital before getting into your surgical gown. Do not shave the area of your procedure for 2 days prior to your surgery. 4. NO powder, lotion, perfume/cologne, aftershave, make-up, deodorant, or hair products after you have bathed. 5. NO nail algerian/acrylic on at least one finger. If you are having a hand, wrist or foot surgery then all nail algerian and artificial/acrylic nails must be removed from that hand or foot. 6. Avoid ALL Aspirin and non-steroidal anti-inflammatory drugs and certain vitamins (Ibuprofen, Advil, Aleve, Excedrin, Meloxicam, Celebrex, fish/krill oil, etc.) for 7 days prior to surgery as instructed by your surgeon and/or your prescribing doctor. Tylenol IS ALLOWED. If you are on Ticlid, Xarelto, Eliquis, Pradaxa, Plavix or Coumadin, please check with your prescribing doctor for instructions for when to stop them. 7. If you use an inhaler, continue to use it routinely. 8. Nothing to eat or drink (not even water, gum, mints, or hard candy!) AFTER midnight prior to your surgery. 9. Take only medications that you are instructed to on the morning of surgery with a TINY SIP OF WATER. 10. Choose a responsible adult that will be able to drive you home when you are discharged from your hospital stay for your surgery and can stay with you in your home for 24 hours after your procedure. You must NOT drive any vehicle or operate any machinery for 24 hours after surgery. 11. When you dress for your appointment, please wear loose fitting clothing that is appropriate to accommodate your surgical area procedure. BRING WITH YOU ANY DEVICES YOU MAY NEED: KELSIE hose, ice machine, sling/swath, brace or special shoe, oversized zip-up or button up shirt, CPAP machine if staying overnight. 12. Do NOT wear jewelry, watches, or any piercings or metal for surgery- leave these valuables and money at home. 13. Do NOT wear contact lenses for surgery- glasses are okay if needed. 14. The anesthesiologist will talk with you the day of surgery and will ask you to sign a Consent Form. 15. Refrain from smoking or any type of tobacco use for at least 8 hours and marijuana for 24 hours prior to arrival for your surgery. 16. If a GREEN BLOOD band is given to you, please bring it with you for the day of surgery. 17. Notify your surgeon if you develop any illness before your surgery. 18. If you are staying overnight, please DO NOT BRING your home medications with you. 19. If you have any questions prior to surgery, please call the Preadmission Testing office at [phone], Mon.-Fri. 7 a.m.-3 p.m. Leave a voicemail if needed. Pre-Surgery Instructions: Medication Instructions atenoloL (TENORMIN) 50 mg tablet Stop taking 0 days prior to procedure cholecalciferol, vitamin D3, (VITAMIN D3) 5,000 units capsule Stop taking 0 days prior to procedure cyanocobalamin (vitamin B-12) 1000 MCG tablet Stop taking 0 days prior to procedure dicyclomine (BENTYL) 20 mg tablet Stop taking 0 days prior to procedure famotidine (PEPCID) 20 mg tablet Stop taking 0 days prior to procedure levothyroxine (SYNTHROID, LEVOTHROID) 25 MCG tablet Stop taking 0 days prior to procedure loratadine (CLARITIN) 10 mg tablet Stop taking 0 days prior to procedure ondansetron ODT (ZOFRAN ODT) 4 mg disintegrating tablet Stop taking 0 days prior to procedure sod sulf-pot chloride-mag sulf 1.479-0.188- 0.225 gram tablet Stop taking 0 days prior to procedure T [facility] 11-18-2023 History of Presen t illness Narrative Images from the original note were not included. Chief Complaint: Colitis, rectal bleeding History of Present Illness Esme Loza is a 48 y.o. female who presents to the office for colitis and rectal bleeding. Back in October she was having abdominal pain and bright red blood per her rectum. She presented to the [facility]. CT abdomen and pelvis 10/04/2023 revealed mild wall thickening of the transverse and descending colon suggesting inflammatory or infectious colitis. She was sent home on Zofran and Bentyl. Her symptoms went away on their own and then came back after she had a few alcoholic drinks. She feels fine today. She reports constipation and chronic intermittent abdominal pain prior to bowel movements. The pain is so bad sometimes it will make her sweat. She denies diarrhea. She admits to not drinking enough water or eating enough fiber. She drinks an increased amount of coffee. Her last colonoscopy was 20+ years ago. Review of Systems Constitutional: Negative for fever and unexpected weight change. HENT: Negative for trouble swallowing. Respiratory: Negative for shortness of breath. Cardiovascular: Negative for chest pain. Gastrointestinal: Positive for nausea, abdominal pain and constipation. Negative for vomiting, diarrhea, blood in stool and black tarry stool. Genitourinary: Negative for dysuria and difficulty urinating. Musculoskeletal: Negative for gait problem. Skin: Negative for rash and wound. Neurological: Negative for dizziness, weakness and light-headedness. Hematological: Does not bruise/bleed easily. Psychiatric/Behavioral: Negative for confusion. Past Medical History: Diagnosis Date Acute otitis media Arrhythmia Depression GERD (gastroesophageal reflux disease) Hypothyroidism Sciatica Tachyarrhythmia Vitamin D deficiency Past Surgical History: Procedure Laterality Date APPENDECTOMY HYSTERECTOMY OOPHORECTOMY unilateral Allergies Allergen Reactions Gabapentin Facial Swelling Current Outpatient Medications: atenoloL (TENORMIN) 50 mg tablet, Take 1 tablet (50 mg total) by mouth in the morning., Disp: 30 tablet, Rfl: 5 cholecalciferol, vitamin D3, (VITAMIN D3) 5,000 units capsule, TAKE 2 CAPSULES BY MOUTH EVERY DAY, Disp: 200 capsule, Rfl: 3 cyanocobalamin (vitamin B-12) 1000 MCG tablet, Take 1 tablet (1,000 mcg total) by mouth in the morning., Disp: 100 tablet, Rfl: 3 famotidine (PEPCID) 20 mg tablet, Take 1 tablet (20 mg total) by mouth in the morning and 1 tablet (20 mg total) before bedtime., Disp: 60 tablet, Rfl: 5 levothyroxine (SYNTHROID, LEVOTHROID) 25 MCG tablet, Take 1 tablet (25 mcg total) by mouth in the morning., Disp: 90 tablet, Rfl: 1 loratadine (CLARITIN) 10 mg tablet, Take 1 tablet (10 mg total) by mouth in the morning., Disp: 90 tablet, Rfl: 3 ondansetron ODT (ZOFRAN ODT) 4 mg disintegrating tablet, DISSOLVE ONE TABLET ON THE TONGUE EVERY 4 HOURS NEEDED FOR 3 DAYS, Disp: , Rfl: dicyclomine (BENTYL) 20 mg tablet, TAKE 1 TABLET BY MOUTH THREE TIMES DAILY NEEDED FOR PAIN (Patient not taking: Reported on 11/18/2023), Disp: , Rfl: sod sulf-pot chloride-mag sulf 1.479-0.188- 0.225 gram tablet, Please see instructional sheet given by physicians office., Disp: 24 tablet, Rfl: 0 Social History Socioeconomic History Marital status: Spouse name: Siddharth Number of children: 2 Years of education: Not on file Highest education level: Associate degree: occupational, technical, or vocational program Occupational History Not on file Tobacco Use Smoking status: Never Smokeless tobacco: Never Vaping Use Vaping status: Never Used Substance and Sexual Activity Alcohol use: Yes Comment: Occasional Drug use: Yes Frequency: 5.0 times per week Types: Marijuana Sexual activity: Not Currently Partners: Male control/protection: None Other Topics Concern Not on file Social History Narrative Not on file Social Determinants of Health Financial Resource Strain: Medium Risk (06/24/2022) Overall Financial Resource Strain (CARDIA) Difficulty of Paying Living Expenses: Somewhat hard Food Insecurity: No Food Insecurity (10/28/2023) Hunger Screening Food Insecurity - Worry: Never True Food Insecurity - Inability: Never True Transportation Needs: No Transportation Needs (06/24/2022) PRAPARE - Transportation Lack of Transportation (Medical): No Lack of Transportation (Non-Medical): No Physical Activity: Inactive (06/24/2022) Exercise Vital Sign Days of Exercise per Week: 1 day Minutes of Exercise per Session: 0 min Stress: Stress Concern Present (06/24/2022) [place] [employer] Occup[employer] - Occupational Stress Questionnaire Feeling of Stress : Very much Social Connections: Moderately Isolated (06/24/2022) Social Connection and Isolation Panel [NHANES] Frequency of Communication with Friends and Family: Never Frequency of Social Gatherings with Friends and Family: Never Attends [employer] Services: 1 to 4 times per year Active Member of Clubs or Organizations: No Attends Club or Organization Meetings: Never Marital Status: Interpersonal Safety: Not At Risk (06/24/2022) Humiliation, Afraid, Rape, and Kick questionnaire Fear of Current or Ex-Partner: No Emotionally Abused: No Physically Abused: No Sexually Abused: No Housing Instability: Not on file Family History Problem Relation Age of Onset Depression Mother Hyperlipidemia Mother Pneumonia Mother Cancer Father Bipolar disorder Father Mental illness Father Depression Father Alcohol abuse Father Lung cancer Father Lung disease Father Cancer Sister Skin cancer Sister Tuberculosis Brother Bipolar disorder Daughter ADD / ADHD Daughter Anxiety disorder Daughter Bipolar disorder Son ADD / ADHD Son Cancer Paternal Uncle Skin cancer Paternal Uncle Cancer Maternal Grandmother Heart attack Maternal Grandmother Obesity Maternal Grandmother Ovarian cancer Maternal Grandmother Heart attack Maternal Grandfather Alzheimer's disease Maternal Grandfather Cancer Paternal Grandmother Heart attack Paternal Grandmother Obesity Paternal Grandmother Ovarian cancer Paternal Grandmother Cervical cancer Paternal Grandmother Suicide Attempts Cousin Breast cancer Neg Hx Objective Physical Exam Constitutional: General: She is not in acute distress. Appearance: Normal appearance. She is obese. She is not ill-appearing. HENT: Head: Normocephalic and atraumatic. Mouth/Throat: Mouth: Mucous membranes are moist. Eyes: Pupils: Pupils are equal, round, and reactive to light. Cardiovascular: Rate and Rhythm: Normal rate and regular rhythm. Pulmonary: Effort: Pulmonary effort is normal. No respiratory distress. Abdominal: General: Bowel sounds are normal. There is no distension. Palpations: Abdomen is soft. Tenderness: There is no abdominal tenderness. There is no guarding. Musculoskeletal: General: Normal range of motion. Skin: General: Skin is warm and dry. Neurological: Mental Status: She is alert and oriented to person, place, and time. Mental status is at baseline. Vital Signs: Blood pressure 117/60, height 172.7 cm (5' 8 ), weight (!) 136.4 kg (300 lb 12.8 oz). Respiratory Source: No data recorded Admission Weight: Weight: (!) 136.4 kg (300 lb 12.8 oz) Labs Lab Results Component Value Date WBC 4.6 10/28/2023 HGB 13.8 10/28/2023 HCT 39.8 10/28/2023 MCV 96 10/28/2023 PLT 203 10/28/2023 Lab Results Component Value Date GLU 81 10/28/2023 CALCIUM 9.0 10/28/2023 K 4.1 10/28/2023 CO2 27 10/28/2023 CL 105 10/28/2023 BUN 14 10/28/2023 CREATININE 0.89 10/28/2023 No results found for: AMYLASE Lab Results Component Value Date LIPASE 26 07/08/2021 Lab Results Component Value Date ALT 14 10/28/2023 AST 15 10/28/2023 ALKPHOS 60 10/28/2023 Lab Results Component Value Date INR 1.0 11/11/2016 PROTIME 11.3 11/11/2016 Assessment Acute colitis seen on CT scan, likely infectious Bright red blood per rectum Abdominal pain prior to bowel movements Constipation Plan Colonoscopy with possible biopsy and/or polypectomy. Risks, benefits, and alternatives discussed with patient. Educated on bowel evacuation preparation. Patient verbalizes understanding and wishes to proceed. For constipation, recommended drinking at least 64 oz of water daily, increasing dietary fiber, taking additional fiber supplements such as Metamucil or Benefiber, increasing exercise and weight loss. Evaluation included: Preparing to see the patient (e.g., review of tests) Obtaining and/or reviewing separately obtained history Performing a medically appropriate examination and/or evaluation Counseling and educating the patient/family/caregiver Referring and communicating with other health child care sitter Colitis with rectal bleeding [K52.9, K62.5] AUSTIN MCLEOD [facility] General Surgery [place] This note was created with the assistance of a speech recognition program. While intending to generate a timely document that accurately reflects the content of the visit, no guarantee can be provided that every grammatical or spelling mistake has been or will be identified or corrected. Thank you for your understanding. AUSTIN Mcleod 11/18/23 1034 documented in this encounter [facility] 10-28-2023 History of Presen t illness Narrative Subjective Patient ID: Esme Loza is a 48 y.o. female. Here for annual exam She was in the ER recently at [facility] for bloody stools and abdominal cramps on 10/05 and was treated for colitis she was given something for pain, bentyl and fluids and then was sent home It was recommended she f/u with PCP and see surgeon for colonoscopy She has had one less severe episode since Signs of inflammation were seen on her CT scan but nothing else Her feet feels like pins and needles all the time mostly at the forefoot - she finds it extremely difficult to tolerate socks of shoes of any kind At nights she often feels like things are crawling on her feet She continues to have difficulty sleeping at night since her mother's two years ago She is continuing to work on weight loss and has lost about 10 lbs in the last six months and plans to continue these efforts The following portions of the patient's history were reviewed and updated as appropriate: allergies, current medications, past family history, past medical history, past social history, past surgical history, problem list, and medication reconciliation was completed including current medication and post discharge medication. Review of Systems Constitutional: Positive for fatigue. HENT: Negative. Eyes: Negative. Gastrointestinal: Positive for abdominal pain, blood in stool and diarrhea. Endocrine: Negative. Genitourinary: Negative. Skin: Negative. Allergic/Immunologic: Negative. Neurological: Positive for numbness. Psychiatric/Behavioral: Positive for sleep disturbance. Objective Physical Exam Vitals and nursing note reviewed. Constitutional: Appearance: She is obese. HENT: Head: Normocephalic. Eyes: Conjunctiva/sclera: Conjunctivae normal. Neck: Vascular: No carotid bruit. Cardiovascular: Rate and Rhythm: Normal rate and regular rhythm. Pulses: Normal pulses. Dorsalis pedis pulses are 2+ on the right side and 2+ on the left side. Posterior tibial pulses are 2+ on the right side and 2+ on the left side. Heart sounds: Normal heart sounds. No murmur heard. Pulmonary: Effort: Pulmonary effort is normal. Breath sounds: Normal breath sounds. Musculoskeletal: Cervical back: Neck supple. Right lower leg: No edema. Left lower leg: No edema. Feet: Right foot: Protective Sensation: 7 sites tested. 0 sites sensed. Skin integrity: No callus or dry skin. Toenail Condition: Right toenails are normal. Left foot: Protective Sensation: 7 sites tested. 0 sites sensed. Skin integrity: No callus or dry skin. Toenail Condition: Left toenails are normal. Comments: Decreased sensation to sharp on all toes and top of forefoot Lymphadenopathy: Cervical: No cervical adenopathy. Skin: General: Skin is warm and dry. Capillary Refill: Capillary refill takes less than 2 seconds. Neurological: Mental Status: She is alert and oriented to person, place, and time. Sensory: Sensory deficit present. Gait: Gait normal. Psychiatric: Thought Content: Thought content normal. Judgment: Judgment normal. Assessment/Plan Esme was seen today for annual exam. Diagnoses and all orders for this visit: Visit for annual health examination - Comprehensive metabolic panel; Future - Lipid panel; Future Morbid obesity ([facility]) Colitis with rectal bleeding - Ambulatory referral to General Surgery (Non-[facility]); Future - CBC auto differential; Future Subclinical hypothyroidism - Thyroid profile includes TSH FT4; Future Vitamin D deficiency - Vitamin D 25 hydroxy; Future Neuropathy - Vitamin B12; Future Tachyarrhythmia [employer] continues to work well for her heart rhythm and her blood pressure is stable She is working on her weight and it is slowly coming down, encouraged her to continue her efforts Labs were drawn today to recheck her cmp as her kidney function was somewhat decreased during her recent ER visit, suspect she was somewhat dehydrated at the time Her lipids are due as part of her wellness Will also recheck the cbc to ensure she hasn't continued to loose a substantial amount of blood - a colonscopy is ordered to further investigate her bleeding and abdominal pain She is due to have her vitamin d checked as well as her thyroid She is having symptoms of neuropathy, whether this is coming from her chronic back problems or a vitamin b deficiency needs to be determined Will monitor her current mood and sleeping behaviors - treatment deferred at this time Patient noted to have elevated BMI and the following intervention(s) were applied: encouragement to exercise. NAHUM Gasca 10/28/23 0842 documented in this encounter [facility] 07-30-2023 History of Presen t illness Narrative Patient was instructed to come in the office for a Urine Dipstick because she thought she still had her UTI. documented in this encounter [facility] Evaluation note Diagnosis SVT (supraventricular tachycardia) ([facility]) Other specified cardiac dysrhythmias Sinus bradycardia Other specified cardiac dysrhythmias BMI 40.0-44.9, adult (Multi) Former smoker Personal history of tobacco use, presenting hazards to health documented in this encounter [facility] Work Phone: Evaluation note* Diagnosis Acute cystitis without hematuria- Primary Dysuria Subclinical hypothyroidism Other specified acquired hypothyroidism documented in this encounter [facility]Evaluation note* Diagnosis Symptoms of urinary tract infection- Primary documented in this encounter [facility]Evaluation [facility]* Diagnosis Urinary symptom or sign- Primary documented in this encounter [facility]* Diagnosis Urinary symptom or sign- Primary documented in this encounter [facility]* Diagnosis Visit for annual health examination- Primary Morbid obesity ([facility]) Morbid obesity Colitis with rectal bleeding Subclinical hypothyroidism Other specified acquired hypothyroidism Vitamin D deficiency Neuropathy Mononeuritis of unspecified site Tachyarrhythmia Unspecified tachycardia [facility] Diagnosis Vitamin B12 deficiency- Primary Other B-complex deficiencies [facility] Diagnosis Colitis with rectal bleeding- Primary Lower abdominal pain Abdominal pain, other specified site [facility] Diagnosis COVID-19- Primary documented in this encounter [facility] SystemInstructions* Attachments The following attachments cannot be sent through Care Everywhere. * Urinary Tract Infection, Adult ED (Armenian) [facility]ructionsNot on file documented in this encounterPro[facility] SystemInstructionsNot on file documented in this encounterPro[facility] SystemInstructionsNot on file documented in this encounterPro[facility] SystemInstructionsNot on file documented in this encounterPro[facility] SystemInstructionsNot on file documented in this encounterPro[facility] SystemInstructionsNot on file documented in this encounterPro[facility] SystemInstructionsNot on file documented in this encounterPro[facility] SystemInstructionsNot on file documented in [facility] encounterUniversity [facility] SystemReason for referral (narrative)* Consultation (Routine) - Pending Review Specialty Diagnoses / Procedures Referred By Adalgisa garzon Referred To Contact General Surgery Diagnoses Colitis with rectal bleeding Norma Drake APRN-FNP [address] [place] [address], [address] [place] [address] Referral ID Status Reason Start Date Expiration Date Visits Requested Visits Authorized [id number] Pending Review Specialty Services Required 10/28/2023 10/27/2024 1 1 [facility] Summary Purpose Family History No Family History Records FoundNo Family History Records FoundNo Family History Records FoundNo Family History Records FoundNo Family History Records FoundNo Family History Records FoundNo Family History Records FoundNo Family History Records FoundNo Family History Records Found Advance Directives No Advanced Directives Records FoundNo Advanced Directives Records FoundNo Advanced Directives Records FoundNo Advanced Directives Records FoundNo Advanced Directives Records FoundNo Advanced Directives Records FoundNo Advanced Directives Records FoundNo Advanced Directives Records FoundNo Advanced Directives Records Found Additional Source Comments INFORMATION SOURCE (unrecogn ized section and content) DATE CREATED AUTHOR 05/19/2020 [facility] DATE CREATED AUTHOR AUTHOR'S ORGANIZ ATION 06/30/2020 [facility] DATE CREATED AUTHOR AUTHOR'S ORGANIZ ATION 10/14/2021 [facility] DATE CREATED AUTHOR AUTHOR'S ORGANIZ ATION 11/06/2022 [facility] DATE CREATED AUTHOR AUTHOR'S ORGANIZ ATION 07/18/2024 [facility] DATE CREATED AUTHOR AUTHOR'S ORGANIZ ATION 08/04/2024 [facility] DATE CREATED AUTHOR AUTHOR'S ORGANIZ ATION 08/06/2024 DATE CREATED AUTHOR AUTHOR'S ORGANIZ ATION 09/28/2024 [facility] DATE CREATED AUTHOR AUTHOR'S ORGANIZ ATION 01/05/2025 [facility] Reason for Visit (unrecogniz ed section and content) Reason Comments Establish Care Specialty Diagnoses / Procedures Referred By Contac t Referred To Contact Diagnoses SVT (supraventricular tachycardia) ([facility]) Sinus bradycardia Procedures ECG 12 Lead Deyanira Aguilar MD [address] [address] Phone: tel: fax: Referral ID Status Reason Start Date Expiration Date V isits Requested Visits Authorized [id number] Authorized 07/16/2024 07/16/2025 1 1 Reason Comments Urinary Tract Infection possible Reason Comments Urinary Tract Infection Reason Comments Med Refill Reason Comments Annual Exam Reason Comments Rectal Bleeding COLITIS like 20 year s ago. Dark clotting blood, last colonoscopy was like 25 yrs. ago REFERRED BY NORMA DRAKE NP Specialty Diagnoses / Procedures Referred By Contac t Referred To Contact General Surgery Diagnoses Colitis with rectal bleeding Norma Drake, BARMAN-PAYMENT COLLECTOR [address] [place] [address], DO [address] [place] [address] Referral ID Status Reason Start Date Expiration Date V isits Requested Visits Authorized [id number] Closed Specialty Services Required 10/28/2023 10/27/2024 1 1 Reason Onset Date Comments Med Refill 05/03/2024 Reason Onset Date Comments Med Refill 07/06/2024 Reason Onset Date Comments Med Refill 11/16/2024 Care Teams (unrecognized sec tion and content) Front Desk Relationship Specialty Start Date End Date Asher Mae DO [address] [place] [address] PCP - General Family Medicine 07/16/24 Front Desk Relationship Specialty Start Date End Date Asher Mae DO [address], [place] [address] PCP - General Family Medicine 07/08/21 Front Desk Relationship Specialty Start Date End Date Asher Mae DO [address], [place] [address] PCP - General Family Medicine 07/08/21 Front Desk Relationship Specialty Start Date End Date Asher Mae DO [address] [place] [address] PCP - General Family Medicine 07/08/21 Front Desk Relationship Specialty Start Date End Date Asher Mae DO [address], [place] [address] PCP - General Family Medicine 07/08/21 Front Desk Relationship Specialty Start Date End Date Asher Mae DO [address], [place] [address] PCP - General Family Medicine 07/08/21 Front Desk Relationship Specialty Start Date End Date Asher Mae DO [address], [place] [address] PCP - General Family Medicine 07/08/21 Front Desk Relationship Specialty Start Date End Date LillianamehulAsher shaw DO [address], [place] [address] PCP - General Family Medicine 07/08/21 Front Desk Relationship Specialty Start Date End Date LillianamehulAsher shaw DO [address], [place] [address] PCP - General Family Medicine 07/08/21 Front Desk Relationship Specialty Start Date End Date Asher Mae DO [address], [place] [address] PCP - General Family Medicine 07/08/21 Front Desk Relationship Specialty Start Date End Date Asher Mae DO [address], [place] [address] PCP - General Family Medicine 09/25/24 Front Desk Relationship Specialty Start Date End Date Asher Mae DO [address], [place] [address] PCP - General Family Medicine 09/25/24 FOR RECORDS PERTAINING TO PATIENTS WHO ARE OR HAVE BEEN ENROLLED IN A CHEMICAL DEPENDENCY/SUBSTANCEABUSE PROGRAM, SOME INFORMATION MAY BE OMITTED. This clinical summary was aggregated from multiple sources. Caution should be exercised in using it in the provision of clinical care. This summary normalizes information from multiple sources, and as a consequence, information in this document may materially change the coding, format and clinical context of patient data. In addition, data may be omitted in some cases. CLINICAL DECISIONS SHOULD BE BASED ON THE PRIMARY CLINICAL RECORDS. [facility] provides no warranty or guarantee of the accuracy or completeness of information in this document.
== END 2025-03-24 08:43 | disposition home or self-care (01) ==
LOC: US 08:47
PROVIDERS: PCP Nurse Practitioner Family
DX: N23 Unspecified renal colic (principal)
CPT/HCPCS: 76775

== ENCOUNTER 2025-07-14 03:07 | Emergency (ER) | payer OTHER, SELFPAY ==
--- OUTSIDE RECORDS SUMMARY | 2025-06-06 02:15 | XMS_ITS ---
Author Organization [facility] vices Address [address] [place] [id number] Care Team Providers Care Corporate Librarian Name Role Phone Eros Lopez Primary Care Provider [phone] REASON FOR VISIT 3 month hypothyroid Social History Sex Assigned At : Social History Observation Description Sex Assigned At Female Encounters Encounter Location Date Provider Diagnosis Main [address] [place] [place] [id number] 06/06/2025 Eros Lopez Plan Of Treatment No Information Progress Notes * Galen LOZAOB:1975 (50 yo F)Acc No.[id number]:06/06/2025 Medical Note Patient: Dago Dennyime :?Eros PurcelldDOB:1975???Age:50 Y???Sex: FemaleDate:06/06/2025Phone:[phone]:[address] [place], [id number] Subjective: * Chief Complaints: * 3 month hypothyroid * Electronic signature of FANNIE Whitfield on 07/14/2025 at 03:47 AM ESTSign off status: Pending * Provider: Katia Lopez Date: 08/06/2024 Generated for Printing/Faxing/eTransmitting on:?07/14/2025 03:47 AM EST
[2025-07-14] VITALS (12 sets, daily range): BP systolic 90–128; BP diastolic 57–107; PULSE 82–180; O2SAT 91–99; BMI 39.9
--- NOTE | 2025-07-14 03:15 | ECG_ITS ---
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
[2025-07-14] MEDS: ADENOSINE 6 MG/2 ML VIAL IVP (03:23)
[2025-07-14] MEDS: 0.9 % SODIUM CHLORIDE 1,000 ML 1000 ML IV (03:26)
--- NOTE | 2025-07-14 03:30 | ECG_ITS ---
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
--- NOTE | 2025-07-14 03:36 | ED_ITS ---
HPI HPI - General Adult General Chief complaint: Arrhythmia/Palpitations Stated complaint: ABNORMAL HEARTRATE, DIZZINESS Time Seen by Provider: 07/14/25 03:14 Source: patient Mode of arrival: walk-in Limitations: no limitations History of Present Illness HPI narrative: Patient is a 50-year-old female presenting to the emergency department for concerns of tachycardia. Patient states she has a history of SVT. She has had a cardiac ablation in the past and follows up regularly with her director of pediatric rehabilitation. She was prescribed atenolol, which seemed to help her SVT. However, the medication gave her adverse side effects such as bradycardia and fatigue, so she took her self off of this medication. Since take her self off of this medication she experiences palpitations and tachycardia. However, tonight, this episode of tachycardia did not resolve. She states that tachycardia is been ongoing for the last few hours. She states she has a some chest discomfort, but is otherwise asymptomatic. She is otherwise at her baseline state of health. She has a history of hypothyroidism on levothyroxine. She states she had her thyroid level checked a couple months ago which was within normal limits. Related Data Home Medications ?Medication ?Instructions ?Recorded ?Confirmed atenolol 50 mg tablet 50 mg PO Q24H 10/04/2310/03 cholecalciferol (vitamin D3) 125 10,000 unit PO DAILY 10/04/23 10/04/23 mcg (5,000 unit) capsule famotidine 20 mg tablet 20 mg PO Q12H 10/04/2310/03 levothyroxine 25 mcg tablet 25 mcg PO DAILY 10/04/23 0 10/04/23 loratadine 10 mg tablet (Claritin) 10 mg PO DAILY 09/2710/04/23 Previous Rx's ?Medication ?Instructions ?Recorded dicyclomine 20 mg tablet 20 mg PO TID PRN abdominal p ain #7 10/04/23 tabs ondansetron 4 mg disintegrating 4 mg PO Q4H PRN nausea and 10/04/23 tablet vomiting 3 days #6 tabs Allergies Allergy/AdvReac Type Severity Reaction Status Date / Time gabapentin (From Neurontin) Allergy Intermediate Swelling Verified 07/14/25 03:14 of Lip/Tongue/Throat Opioid HPI Opioid Management Most Recent Opioid Data: Last Pain Scale 8 10/04/23, 09:36 Review of Systems ROS Status of ROS 10 or more systems reviewed and unremark able except as noted in history and below PFSH PFS Social History Smoking status: Former smoker Little interest or pleasure in doing things: not at all Feeling down, depressed, or hopeless: not at all Exam Narrative Exam Narrative: CONSTITUTIONAL: She appears somewhat uncomfortable, nontoxic, answering questions and following range appropriately, mentating normally SKIN: Was warm and dry. EYES: Sclerae white. EARS, NOSE, THROAT: Moist oral mucosa. RESPIRATORY: Clear to auscultation bilaterally, no wheezes, crackles, or stridor, no use of accessory muscles CARDIOVASCULAR: Tachycardic rate and regular rhythm. There is no S3, S4, murmur, rub. GASTROINTESTINAL: Abdomen is nondistended. MUSCULOSKELETAL: No peripheral edema. NEUROLOGIC: Patient is awake and alert. Facies were symmetrical. Constitutional Vital Signs, click to edit/add: Last Vital Signs Pulse 82 07/14/25 04:00 Resp 16 07/14/25 04:00 BP 90/57 07/14/25 04:00 Pulse Ox 98 07/14/25 04:00 O2 Del Method Room Air 07/14/25 03:45 Course Vital Signs Vital signs: Vital Signs Pulse Rate 180 H 07/14/25 03:10 Respiratory Rate 20 07/14/25 03:10 Blood Pressure 108/84 07/14/25 03:10 Pulse Oximetry 98 07/14/25 03:10 Oxygen Delivery Method Room Air 07/14/25 03:10 Pulse Rate 82 07/14/25 04:00 Respiratory Rate 16 07/14/25 04:00 Blood Pressure 90/57 07/14/25 04:00 Pulse Oximetry 98 07/14/25 04:00 Oxygen Delivery Method Room Air 07/14/25 03:45 Medical Decision Making [facility] Narrative Medical decision making narrative: Patient is a 50-year-old female, history significant for SVT s/p previous cardiac ablation, presenting to the emergency department for evaluation of tachycardia for the last few hours. Patient was placed on a pvc monitor which demonstrated narrow complex tachycardic with a heart rate 180 bpm, otherwise vitals were within normal limits. She has normal blood pressure of 108/84. Differential diagnose includes recurrent SVT or other arrhythmias/electrolyte/metabolic derangement. 12 Lead EKG: Narrow complex tachycardia at a rate of 178. Normal axis. No ST segment elevations. QRS, CT, and QTc interval within normal limits. Final impression: Supraventricular tachycardia without evidence of acute myocardial ischemia An attempt at vagal maneuvers and 1L bolus of normal saline were unsuccessful. Therefore, the patient was given 6 mg of IV adenosine for chemical cardioversion, which promptly resolved her tachydysrhythmia. Patient remained hemodynamically stable throughout the procedure, her heart rate is now 98 bpm with an improved blood pressure of 128/99. Repeat EKG s/p chemical cardioversion: Normal sinus rhythm at a rate of 96. Normal axis. No ST segment elevations. QRS, CT, and QTc interval within normal limits. Final impression: normal sinus rhythm without evidence of acute myocardial ischemia Laboratory studies were unremarkable. No significant electrolyte or metabolic derangement. No evidence of acute kidney injury. No anemia, leukocytosis, or thrombocytopenia. Troponin nonelevated. On re-evaluation patient is sleeping comfortably in the stretcher. She states she feels back to her baseline and is currently asymptomatic. Her vital signs remained stable after adenosine, heart rate is currently 86. I do believe the patient is stable for discharge. They were instructed to follow up with her director of pediatric rehabilitation for further care. Return precautions were given including any new or worsening symptoms. Patient understands and agrees to the plan. FINAL IMPRESSION: #Acute supraventricular tachycardia s/p chemical cardioversion DISPOSITION: Discharged home CONDITION: Good Medical Records Medical records reviewed: Yes I reviewed the patient's medical records Lab Data Lab results reviewed: Yes I reviewed the patient's lab results Labs: Lab Results 07/14/25 Range/Units 03:20 WBC 9.1 (4.0-11.0) 10^3/uL RBC 4.58 (4.20-5.40) 10^6/uL Hgb 15.1 (12.0-16.0) g/dL Hct 43.6 (36.0-48.0) % MCV 95.2 (81.0-99.0) fL MCH 33.0 (26.7-34.0) pg MCHC 34.6 (29.9-35.2) g/dL RDW 11.1 (11.0-15.0) % Plt Count 304 (150-450) 10^3/uL MPV 11.4 (9.5-13.5) fL Neut % (Auto) 52.3 (43.0-75.0) % Lymph % (Auto) 37.8 (20.5-60.0) % [place] % (Auto) 6.5 (1.7-12.0) % Eos % (Auto) 2.2 (0.9-7.0) % Baso % (Auto) 0.4 (0.2-2.0) % Neut # (Auto) 4.8 (1.4-6.5) 10^3/uL Lymph # (Auto) 3.4 (1.2-3.8) 10^3/uL [place] # (Auto) 0.6 (0.3-0.8) 10^3/uL Eos # (Auto) 0.2 (0.0-0.7) 10^3/uL Baso # (Auto) 0.0 (0.0-0.1) 10^3/uL Abs Immat Gran (auto) 0.07 H (0.00-0.03) 10^3/uL Imm/Tot Granulo (auto) 0.8 H (0.0-0.5) % Sodium 142 (136-145) mmol/L Potassium 3.6 (3.5-5.1) mmol/L Chloride 103 (98-107) mmol/L Carbon Dioxide 28.0 (21.0-32.0) mmol/L Anion Gap 14.6 BUN 13.0 (7.0-18.0) mg/dL Creatinine 0.97 (0.55-1.02) mg/dL Est GFR ( Amer) >60 (>=60 mL/min/1.73m^2) Est GFR (Non-Af Amer) >60 (>=60 mL/min/1.73m^2) BUN/Creatinine Ratio 13.4 Glucose 103 (74-106) mg/dL Calcium 9.5 (8.5-10.1) mg/dL Troponin I High Sens 9.6 (4.0-51.3) pg/mL ECG Data Attestation: I personally reviewed and interpreted this ECG as follows: Critical Care Time Critical Care Time Critical Care Time: Yes Total Critical Care Time: 30 Attestation: Due to a high probability of clinically significant, life threatening deterioration, the patient required my highest level of preparedness to intervene emergently and I personally spent this critical care time directly and personally managing the patient. This critical care time included obtaining a history; examining the patient; pulse oximetry; ordering and review of studies; arranging urgent treatment with development of a management plan; evaluation of patient's response to treatment; frequent reassessment; and, discussions with other providers. This critical care time was performed to assess and manage the high probability of imminent, life-threatening deterioration that could result in multi-organ failure. It was exclusive of separately billable procedures and treating other patients and teaching time. Discharge Plan Discharge Chief Complaint: Arrhythmia/Palpitations Clinical Impression: Supraventricular tachycardia Patient Disposition: Home, Self-Care Time of Disposition Decision: 03:37 Condition: Good Mode of Transportation: Private Vehicle Prescriptions / Home Meds: No Action atenolol 50 mg tablet 50 mg PO Q24H cholecalciferol (vitamin D3) 125 mcg (5,000 unit) capsule 10,000 unit PO DAILY famotidine 20 mg tablet 20 mg PO Q12H levothyroxine 25 mcg tablet 25 mcg PO DAILY loratadine [Claritin] 10 mg tablet 10 mg PO DAILY dicyclomine 20 mg tablet 20 mg PO TID PRN (Reason: abdominal pain) Qty: 7 0RF ondansetron 4 mg tablet,disintegrating 4 mg PO Q4H PRN (Reason: nausea and vomiting) 3 Days Qty: 6 0RF Print Language: Maltese Instructions: Supraventricular Tachycardia (ED) Referrals: ENRRIQUE BARRIOS [Primary Care Provider, Family Practice] - 1 week
--- OUTSIDE RECORDS SUMMARY | 2025-07-14 03:48 | XMS_ITS | Clinical Summary ---
Author Organization [facility] [facility] tem Address [id number] [address] [place] [address] Care Team Providers Care Qualitative Field Project Manager Name Role Phone CarmelitaAsher Hitesh ACEVES Primary Care Provider Allergies Active AllergyReactionsCriticalityNoted DateCommentsGabapentinFacial Swelling 07/08/2021 Medications * This document contains information received from the source organization and may not represent a complete record from that organization. MedicationSigDispense QuantityRefillsLast FilledStart DateEnd DateStatus cholecalciferol, vitamin D3, (VITAMIN D3) 5,000 units capsule Indications:Vitamin D deficiency, unspecifiedTAKE 2 CAPSULES BY MOUTH EVERY DAY 200 capsule 3Active cyanocobalamin (vitamin B-12) 1000 MCG tablet Indications:Vitamin B12 deficiencyTake 1 tablet (1,000 mcg total) by mouth in the morning. 100 tablet 3034Active famotidine (PEPCID) 20 mg tablet Take 1 tablet (20 mg total) by mouth in the morning and 1 tablet (20 mg total) before bedtime. TAKE1 TABLET BY MOUTH TWICE DAILY (IN THE MORNING AND BEFORE BEDTIME). 60 tablet 4Active loratadine (CLARITIN) 10 mg tablet Take 1 tablet (10 mg total) by mouth in the morning. 90 tablet 4Active atenoloL (TENORMIN) 25 mg tablet TAKE 1 TABLET BY MOUTH ONCE DAILY IN THE MORNING 90 tablet 5Active levothyroxine (SYNTHROID, LEVOTHROID) 25 MCG tablet Take 1 tablet (25 mcg total) by mouth in the morning. 90 tablet 5Active Active Problems ProblemNoted DateDiagnosed DateVitamin B12 rxewsrzpwb81/27/2024Morbid obesity 10/24/2022ipolar II xqkdhuxe64/06/2023eneralized anxiety fwxhhode30/06/2023 Post traumatic stress disorder (PTSD)10/07/2022hronic oaphpwfigdva05/27/2022 Kezugpwh42/27/2022ubclinical qrtnjuagjkgfxb83/21/6924Epvfrporffwpnwu83/14/2018 Vitamin D ylaebknipl41/24/2017 Immunizations ImmunizationAdministration DatesNext DueHep A / Hep B1Influenza (IM) Preservative Free05/23/2015Influenza, Im Trivalent Zldpqzzosstv12/21/2017 Family History Medical HistoryRelationNameCommentsTuberculosisBrotherSuicide AttemptsCousinADD / ADHDDaughterAnxiety disorderDaughterBipolar disorderDaughterAlcohol abuse FatherBipolar disorderFatherCancerFatherDepressionFatherLung cancerFatherLung diseaseFatherMental illnessFatherAlzheimer's diseaseMaternal GrandfatherHeart attackMaternal GrandfatherCancerMaternal GrandmotherHeart attackMaternal GrandmotherObesityMaternal GrandmotherOvarian cancerMaternal Grandmother DepressionMotherHyperlipidemiaMotherPneumoniaMotherCancerPaternal Grandmother MaryCervical cancerPaternal GrandmotherMaryHeart attackPaternal GrandmotherMary ObesityPaternal GrandmotherMaryOvarian cancerPaternal GrandmotherMaryCancer Paternal UncleSkin cancerPaternal UncleCancerSisterSkin cancerSisterADD / ADHD SonBipolar disorderSonBreast cancerNeg HxRelationNameStatusCommentsBrotherCousin DaughterFatherDeceasedMaternal GrandfatherMaternal GrandmotherDeceasedMother DeceasedPaternal GrandmotherMaryDeceasedPaternal UncleDeceasedSisterAliveSon Social History Tobacco UseTypesPacks/DayYears UsedDateSmoking Tobacco: NeverSmokeless Tobacco: Never Tobacco Cessation:Counseling Given: Not Answered Alcohol UseStandard Drinks/WeekCommentsYes0 (1 standard drink = 0.6 oz pure alcohol)OccasionalSocial Connection and Isolation PanelAnswerDate RecordedIn a typical week, how many times do you talk on the phone with family, friends, or neighbors?Never06/24/2022How often do you get together with friends or relatives?Never06/24/2022How often do you attend rastafari or christianity services?1 to 4 times per year2Do you belong to any clubs or organizations such as rastafari groups, unions, fraRising or athletic groups, or school groups?No 06/24/2022How often do you attend meetings of the clubs or organizations you belong to?Never06/24/2022re you , , , , never , or living with a partner?Rleapnt9006/24/2022UDIT-CAnswerDate RecordedQ1: How often do you have a drink containing alcohol?Monthly or less06/24/2022Q2: How many drinks containing alcohol do you have on a typical day when you are drinking?Patient does not drink06/24/2022Q3: How often do you have six or more drinks on one occasion?Never06/24/2022verall Financial Resource Strain (CARDIA) AnswerDate RecordedHow hard is it for you to pay for the very basics like food, housing, medical care, and heating?Somewhat hard06/24/2022HQ-2AnswerDate RecordedTotal Ussep217Finmoab [facility] [place] of Occupational Health - Occupational Stress QuestionnaireAnswerDate RecordedDo you feel stress - tense, restless, nervous, or anxious, or unable to sleep at night because yourmind is troubled all the time - these days?Very much06/24/2022Exercise Vital SignAnswer Date RecordedOn average, how many days per week do you engage in moderate to strenuous exercise (like a brisk walk)?1 day06/24/2022n average, how many minutes do you engage in exercise at this level?0 min06/24/2022RAPARE - TransportationAnswerDate RecordedIn the past 12 months, has lack of transportation kept you from medical appointments or from getting medications?No 06/24/2022In the past 12 months, has lack of transportation kept you from meetings, work, or from getting things needed for daily living?No06/24/2022 ChildcareAnswerDate RecordedDo problems getting childcare provider make it difficult for you to work or study?No06/24/2022EmploymentAnswerDate RecordedDo you need help finding a local career center and/or a training program?No06/24/2022Hunger ScreeningAnswerDate RecordedWithin the past 12 months we worried whether our food would run out before we got money to buy more.Never True09/25/2024Within the past 12 months the food we bought just didn't last and we didn't have money to get more.Never True09/25/2024Purpose - LifeAnswerDate RecordedI have a purpose and direction in my life.Somewhat Agree06/24/2022EducationAnswerDate RecordedWhat is the highest level of school you have completed or the highest degree you have received?Associate degree: occupational, technical, or vocational hktkbyt6006/24/2022CommentsNoSex and Gender InformationValue Date RecordedSex Assigned at BirthNot on fileLegal JdwUjcfsj67/06/2015 11:25 AM EDTGender IdentityNot on fileSexual OrientationNot on file Last Filed Vital Signs Vital SignReadingTime TakenCommentsBlood Vjibghmi112/8709/25/2024 12:20 PM EST Dtgzn6673/22/2025 12:20 PM GXTWhtivrqyiqp45.3 ??C (97.4 ??F)09/25/2024 12:20 PM ESTRespiratory Fmuc765409/25/2024 12:20 PM ESTOxygen Qudmbgpkkz39%09/25/2024 12:20 PM ESTInhaled Oxygen Concentration--Dmkjko890.3 kg (285 lb)09/25/2024 12:20 PM HXIXplafn219.7 cm (5' 8 )09/25/2024 12:20 PM ESTBody Mass Index43.33009/25/2024 12:20 PM EST Plan of Treatment Health MaintenanceDue DateLast DoneCommentsDTaP,Tdap and Td Vaccines (1 - Tdap) 02/05/19951680Qovisiebt58/09/epression Etgearthq58/26/91253010/28/2023 Adult BMI Follow Up PlanTobacco Pczmcineb09/30/2025 08/02/2024dult BMI Fduahttdq12/22/36557909/25/20247688Psukvfuvdax45/29/2029 12/01/2023, 12/01/2023Influenza UleqgucCrchonkquboh28/21/2017, 05/23/2015 Medical Devices Not on file Procedures Procedure NamePriorityDate/TimeAssociated DiagnosisCommentsPROVATION COLONOSCOPY Bektbib6012/01/2023 10:45 AM EDT MAMM SCREENING BILATERAL W TVQBjamaxe38/09/2023 9:22 AM EDT Encounter for screening mammogram for malignant neoplasm of breast from Last 3 Months or Most Recently Relevant to Health Maintenance Results * Colonoscopy Report (12/01/2023 10:45 AM EDT)Specimen (Source)Anatomical Location / LateralityCollection Method / VolumeCollection TimeReceived Time Narrative SYSTEMGENERATED, DOCUMENTATION - 12/01/2023 10:45 AM EDT This order has been auto-finalized for image and report archival in PACs. *For full report details, please reach out to your physician. ??This image is visible to you in MyChart.* Authorizing ProviderResult TypeResult StatusMichael E Grillis DOIMG OR IMG ORDERABLESFinal Result * Mammography screening bilateral with CAD (01/10/2023 9:22 AM EDT)Anatomical RegionLateralityModalityBreastBilateralMammographySpecimen (Source)Anatomical Location / LateralityCollection Method / VolumeCollection TimeReceived Time 01/13/2023 8:41 AM EDT Narrative 01/13/2023 8:46 AM EDT History: Screening mammogram Technique: Digital mammographic images of both breasts were obtained in CC and MLO projections. ??Computer-aided detection was utilized. ??Tomosynthesis was also performed. Comparison: ??None Findings: Breast Density: There are scattered areas of fibroglandular density. There are intramammary lymph nodes in the left breast ??There is no evidence of dominant mass lesion, clustered microcalcifications, or skin thickening in either breast to suggest the presence of malignancy. Impression: Both breasts negative for evidence of malignancy by digital mammography. ??A screening mammogram in one year is recommended. ACR Category: ??BIRADS 2 - Benign. Finalized by Brandan Rogers MD on 01/13/2023 8:46 AM 2 b MAMM 1 YR Procedure Note Brandan Rogers MD - 01/13/2023 History: Screening mammogram Technique: Digital mammographic images of both breasts were obtained in CCand MLO projections. Computer-aided detection was utilized.Tomosynthesis was also performed. Comparison: None Findings: Breast Density: There are scattered areas of fibroglandular density. There are intramammary lymph nodes in the left breast There is noevidence of dominant mass lesion, clustered microcalcifications, or skinthickening in either breast to suggest the presence of malignancy. Impression: Both breasts negative for evidence of malignancy by digital mammography. A screening mammogram in one year is recommended. ACR Category: BIRADS 2 - Benign. Finalized by Brandan Rogers MD on 01/13/2023 8:46 AM 2 b MAMM 1 YR Authorizing ProviderResult TypeResult StatusLidiabrian Drake SALES AND SERVICE CONSULTANT-FNPIMG MAMMOGRAPHY ORDERABLESFinal Result from Last 3 Months or Most Recently Relevant to Health Maintenance Insurance Care Teams Team MemberRelationshipSpecialtyStart DateEnd Date Asher Mae DO [address] [facility], [facility] [place] [address] [facility]09/25/24
--- OUTSIDE RECORDS SUMMARY | 2025-07-14 03:48 | XMS_ITS | Continuity of Care Document ---
Author [facility] Address [address] [place] [address] Problems Unknown Problems Results Test Result Date/Time Value / Unit Interp. Refere nce Range SARS-COV-2 (COVID19), NAAT[[id number]] Collected: 07/03/2020 04:05 PM Specimen Received: 07/04/2020 07:57 PM Source: [facility] SARS-CoV-2 INTERPRETATION [[id number]] 07/05/2020 05:20 A M Negative See LshxETSV-AuG-4 RNA NOT DETECTEDNegative results do not preclude SARS-CoV-2 infection and should notbe used as the sole basis for patient management decisions. Negativeresults must be combined with clinical observations, patient history,and epidemiological information. Optimum specimen types and timingfor peak viral levels during infections caused by SARS-CoV-2 have notbeen determined. Collection of multiple specimens or types ofspecimens may be necessary to detect virus. Improper specimencollectionand handling, sequence variability under primers/probes,or organism present below the limit of detec tion may lead to falsenegative results. Positive and negative predictive values oftesting are highly dependent on prevalence. False negative testresults are more likely when prevalence is high.SOURCE [[id number]]07/05/2020 05:20 AM NASOPHARYNGEALNote: Methodology is Uberseq Real-Time RT-PCR. The expectedresult or reference range is NEGATIVE (Not Detected). For more information regarding COVID-19 testing to include clinicalinformation, m ethodology detail, intended use, FDA authorization andrecommended fact sheets for patients or healthcare providers, see NewTest Announcement: SARS-CoV-2 (COVID-19) by NAAT at URL below (note,fact sheets are provided by method given in report:[email or web address] Alternatively, see downloadable PDF fact sheet at:[email or web address] Allergies, adverse reactions, alerts No known allergies and adverse reactions Medications No administered medications reported Vital Signs No vital signs reported Social History No smoking Hx information available
--- OUTSIDE RECORDS SUMMARY | 2025-07-14 03:48 | XMS_ITS | Patient Health Record ---
Author Organization [facility] Address [address] [place], [place] [address] Care Team Providers Care Housekeeping Room Attendant Name Role Phone John Eros Primary Care Provider Peyton Grady Unavailable [phone] Allergies Allergen (clinical drug ingredient) Drug/Non Drug Allergy documented on EMR Reaction Allergy Type Onset Date Status gabapentin Neurontin Unknown Drug Allergy Active Results Component Value Reference Range Flag Notes TSH + FREE T4 PROFILE Reviewed date:06/09/2025 08:00:47 AM Interpretation: Performing Lab: Notes/Report: TSH 1.09 0.270-4.200 uIU/mL The [employer] (RUBIA) recommends the following reference ranges for TSH levels during : First trimester: 0.1 to 2.5 mIU/L Second trimester: 0.2 to 3.0 mIU/L Third trimester: 0.3 to 3.0 mIU/L FREE T41.220.80-1.90 ng/dL UNLESS OTHERWISE INDICATED, ALL TESTING PERFORMED AT: [facility] [address] [place] [address] CLINICAL CYTOGENETICS DIRECTOR: KAVON ECHOLS M.D. CLIA NUMBER [id number] CAP ACCREDITATION AUID [id number] HIV-1 2 COMBO AG/AB Reviewed date:03/04/2025 07:54:21 AM Interpretation: Performing Lab: Notes/Report: CLIA NUMBER [id number] CAP ACCREDITATION AUID [id number] CLINICAL CYTOGENETICS DIRECTOR: KAVON ECHOLS M.D. [facility] [address] [place] [address] UNLESS OTHERWISE INDICATED, ALL TESTING PERFORMED AT: assay. HIV-1 and/or HIV-2 that are below the limit of detection of this Does not exclude the possibility of exposure to or infection with No laboratory evidence of HIV infection. Negative for HIV-1 antigen and HIV-1/HIV-2 antibodies.HIV-1,2 COMBO AG/AB NonreactiveNonreactiveHIV-1 p24 AgNonreactiveNonreactiveHIV-1/HIV-2 Abs NonreactiveNonreactiveLIPID PANEL WITH REFLEX TO DIRECT LDL Reviewed date:03/04/2025 07:54:14 AM Interpretation: Performing Lab: Notes/Report:NSAHVBQFOVN127459-711 mg/dQQAYDHNUYSJPKNA10669-446 mg/dLHVLDL-CHOL, QHPGGRQICA47<30 mg/dLHHDL-CHOL46>=50 mg/dLLLDL-CHOL, UOYLZJQNWF330<130 mg/dLH Direct LDL is recommended for patients with triglycerides >400. ADULT LDL CHOLESTEROL CLASSIFICATION <100mg/dL Optimal 100-129mg/dL Near/Above Optimal 130-159mg/dL Borderline High >160mg/dL High Risk Desirable range <100 mg/dL for patients with CHD or diabetes and <70 mg/dL for diabetic patients with known heart disease. LDL/HDL2.9<4.1 LDL/HDL RATIO MALE FEMALE below average risk <2.3 <2.3 average risk <5.0 <4.1 moderate risk <7.1 <5.6 high risk >7.1 >5.6 CHOL/HDL5.12.0-4.5HUS renal BI Reviewed date:03/26/2025 05:35:44 PM Interpretation: Performing Lab: Notes/Report: Source Facility: [facility] [address] [place] [address] Ultrasound Report Signed Patient: ESME LOZA MR#: [id number] : 1975 Acct:[id number] Age/Sex: 50 / F ADM Date: 03/24/25 Loc: US Attending Dr: Peyton Grady SENIOR AUDITOR Ordering Physician: Peyton Grady NP Date of Service: 03/24/25 Procedure(s): US renal BI Accession Number(s): [id number] cc: ENRRIQUE BARRIOS ; Peyton Grady NP [address] [address] Patient Name: ESME LOZA MRN: [id number] date: 1975 Sex: F Assigned Patient Location: US Current Patient Location: US Accession/Order Number: [id number] Exam Date: 03/24/2025 12:48 Report Date: 03/24/2025 12:48 At the request of: PEYTON GRADY NP Procedure: US renal BI Bilateral Renal Ultrasound HISTORY: Bilateral flank pain greater on the right COMPARISON: None RIGHT kidney measures 10.8 cm. LEFT kidney measures 11.4 cm. Hydronephrosis: None RENAL STONE: No shadowing renal calculus is seen. RENAL LESIONS: No renal lesion identified. URINARY BLADDER: Unremarkable REPRODUCTIVE STRUCTURES Not assessed IMPRESSION : No hydronephrosis. Impression dictated by: Brooks Morillo M.D. 03/24/2025 12:48 PM Dictation Location: [place] [address] Electronically authenticated by: [id number] Y Date: 03/24/2025 12:48 Dictated By: Brooks Morillo D.O. Signed By: 03/24/25 1251 DD/ 1248 TD/TT: Sccm Administrator:ASHA Colonoscopy Reviewed date:03/04/2025 10:54:32 AM Interpretation: Performing Lab: Notes/Report: CBC W/AUTO DIFF Reviewed date:11/16/2024 01:33:56 PM Interpretation: Performing Lab: Notes/Report:WBC7.83.6-11.0 THDS/CMMRBC4.453.80-5.20 MILL/QSMFXZ56.511.9-16.0 G/DLHCT42.535-47 %JQG8320-157 fLMCH32.626.0-33.0 leVAIZ14.132.0-35.0 g/dlRDW11.6 11.2-14.8 %RRBOIGDE212665-713 THOUS/YAOGULSVJPNUKW03.545-75 %VXDCLDVNBFOY04.920- 45 %MONOCYTES6.50-13 %EOSINOPHILS3.60-5 %BASOPHILS0.60-2 %IMMATURE GRAN0.90-2 % ABS NEUTROPHILS3.391.9-8.0 K/uLABS LYMPHOCYTES3.510.9-5.2 K/uLABS MONOCYTES0.51 0.1-1.0 K/uLABS EOSINOPHILS0.280.0-0.80 K/uLABS BASOPHILS0.050.0-0.2 K/uLABS IMMATURE GRAN0.070.00-0.06 K/uLHVITAMIN B12 Reviewed date:11/16/2024 01:38:41 PM Interpretation: Performing Lab: Notes/Report:VITAMIN B12>4503201-4574 pg/mLH It has been reported that between 5 and 10% of patients with values between 200 and 400 pg/ml may experience neuropsychiatric and hematologic abnormalities due to occult B12 deficiency. Less than 1% of patients with values above 400 pg/ml will have symptoms. VITAMIN D 25 HYDROXY Reviewed date:11/16/2024 01:38:48 PM Interpretation: Performing Lab: Notes/Report:VITAMIN D, 25 XMSWCUE44.830.0-100.0 ng/mL 25-OH VITAMIN D INTERPRETATION Deficiency.... <20.0 ng/ml Insufficiency..20.0-29.0 ng/ml Sufficiency....30.0-100.0 ng/ml Possible Toxicity...>150 ng/ml URINALYSIS COMPLETE, RFLX CULTURE Reviewed date:11/16/2024 12:03:39 PM Interpretation: Performing Lab: Notes/Report:PH5.55.0-8.0SP GRAVITY1.0291.005-1.030APPEARANCETURBIDCLEARACOLOR YELLOWYELLOWPROTEINNEGATIVENEGATIVEGLUCOSENEGATIVENEGATIVEKETONESNEGATIVE NEGATIVEBILIRUBINNEGATIVENEGATIVEOCCULT BLOODNEGATIVENEGATIVELEUKO ESTERNEGATIVE NEGATIVENITRITENEGATIVENEGATIVEUROBILINOGEN0.2<2 mg/dLWBC0-50-5 OOHJUM6-72-5 HPF EPI CELL0-2NONE HPFBACTERIANONENONEHYALINE CASTSNONENONE LPF UNLESS OTHERWISE INDICATED, ALL TESTING PERFORMED AT: [facility] [facility] [address] [place] [address] CLINICAL CYTOGENETICS DIRECTOR: KAVON ECHOLS M.D. CLIA NUMBER [id number] CAP ACCREDITATION AUID [id number] COMPREHENSIVE METABOLIC PANEL (AMA) Reviewed date:11/16/2024 01:38:54 PM Interpretation: Performing Lab: Notes/Report:SFVMBDC0540-594 mg/dXRPLPQW760366-616 mmol/LPOTASSIUM4.33.5-5.4 mmol/TAUNRCEMK77310-811 mmol/JQW76712-35 mmol/KZXJ578-07 mg/dLCREATININE, BLOOD 0.920.51-1.15 mg/dLeGFR (2020 CKD-EPI)77>59 mL/min/1.60n6MKLGFEF4.68.6-10.5 mg/Crystal. PROTEIN7.36.0-8.3 g/dLALBUMIN4.93.5-5.2 g/dLGLOBULIN2.41.8-3.8 g/dLA/G RATIO2.01.0-2.5 RATIOALK RIPU6157-818 U/FJGA-RNCR892-00 U/TYUY-WWWA390-24 U/LT. BILIRUBIN0.6<1.3 mg/dLHEMOGLOBIN A1C Reviewed date:11/16/2024 01:34:00 PM Interpretation: Performing Lab: Notes/Report:HEMOGLOBIN A1C5.3<5.7 % Prediabetes: 5.7% to 6.4% Diabetes: >6.4% Glycemic control for adults with diabetes: <7.0% Use with caution in patients with abnormal hemoglobin variants as the half-life of red blood cells and in vivo glycation rates are affected. AVERAGE WHOLE BLOOD QGOHVGI444<126 mg/dl UNLESS OTHERWISE INDICATED, ALL TESTING PERFORMED AT: [facility] [address] [place] [address] CLINICAL CYTOGENETICS DIRECTOR: KAVON ECHOLS M.D. CLIA NUMBER [id number] CAP ACCREDITATION AUID [id number] TSH + FREE T4 PROFILE Reviewed date:11/16/2024 01:38:58 PM Interpretation: Performing Lab: Notes/Report:TSH2.450.270-4.200 uIU/mL The [place] Thy[employer] (RUBIA) recommends the following reference ranges for TSH levels during : First trimester: 0.1 to 2.5 mIU/L Second trimester: 0.2 to 3.0 mIU/L Third trimester: 0.3 to 3.0 mIU/L FREE T41.130.80-1.90 ng/dLLIPID PANEL WITH REFLEX TO DIRECT LDL Reviewed date:11/16/2024 01:34:21 PM Interpretation: Performing Lab: Notes/Report:YZWSLNWIFYO464765-549 mg/bIBQNBCEOZIHFNNS61837-754 mg/dLHVLDL-CHOL, KBRVEKAHUX99<30 mg/dLHHDL-CHOL54>=50 mg/dLLDL-CHOL, VLCXJTOQEK364<130 mg/dLH ADULT LDL CHOLESTEROL CLASSIFICATION <100mg/dL Optimal 100-129mg/dL Near/Above Optimal 130-159mg/dL Borderline High >160mg/dL High Risk Desirable range <100 mg/dL for patients with CHD or diabetes and <70 mg/dL for diabetic patients with known heart disease. Direct LDL is recommended for patients with triglycerides >400. LDL/HDL3.0<4.1 LDL/HDL RATIO MALE FEMALE below average risk <2.3 <2.3 average risk <5.0 <4.1 moderate risk <7.1 <5.6 high risk >7.1 >5.6 CHOL/HDL5.02.0-4.5HUrine Dip Reviewed date:03/16/2025 04:36:54 PM Interpretation: Performing Lab: Notes/Report: BilirubinnegOccult BloodnegGlucosenegKetonesnegWBCnegNitritenegPh6.0Proteinneg Specific Gravity1.025ColoryellowAppearanceclearUrine Dip Reviewed date:11/15/2024 04:27:14 PM Interpretation: Performing Lab: Notes/Report: Bilirubin-Occult Blood-Glucose+-Ketones-WBC+-Nitrite-Ph6.0Protein+-Specific Gravity1.030ColororangeAppearanceclear Reason For Referral Reason recurrent UTIs Diagnosis 1 Recurrent UTI (N39.0 ) Referral Organization Main Referring Provider First Name Eros Referring Provider Last Name John Referring Provider Speciality Physician Dispatch Supervisor Referred Provider Executive Urology [facility] Referred Provider Specialty Urology General Notes Margareth Wolff 11/03 10:54:18 AM >{ {TOFIRSTNAME}} This is [facility] following up on an outstanding referral that was ordered by your provider. Please call our office at , so we can _update our records., Margareth Wolff 12/07/2024 03:40:50 PM >no response from pt. Referral Priority Routine Medications Medication SIG (Take, Route, Frequency, Duration) Notes Start Date End Date Status Atorvastatin Calcium 10 mg Tablet TAKE 1 TABLET BY MOUTH ONCE DAILY; Duration: 30 ActiveAtenolol 25 MG Tablet1 tablet Oral Once a day; Duration: 90 daysActive Levothyroxine Sodium 25 MCG Tablet1 tablet in the morning on an empty stomach Oral daily; Duration: 30 daysActiveVitamin B-12 2500 MCG Tablet Sublingualas directed Siotulimsm59/14/2025ActiveFamotidine 20 MG Tablet1 tablet at bedtime as needed Oral twice a day; Duration: 30 daysActiveEzetimibe 10 MG Tablet1 tablet Orally Once a day; Duration: 30 day(s)5ActiveAllergy Relief 10 MG TabletOral; Duration: 30 DaysUnknownAcetaminophen ER 650 MG Tablet Extended Release2 tablets as needed Orally twice a dayActiveIbuprofen 200 MG Capsule1 tablet with food or milk as needed Orally twice a dayActiveSulfamethoxazole- Trimethoprim 800-160 MG Tablet1 tablet Orally twice daily; Duration: 7 days 5ActiveVitamin D 50 MCG (2000 UT) Tablet1 tablet Orally Once a day; Duration: 30 day(s)5ActiveCranberry 250 MG Capsuleas directed Orally Active Social History Tobacco Use: Social History Observation Description Date Details (start date - stop date) Former Smoker NA - NA Sex Assigned At : Social History Observation Description Sex Assigned At Female Social History Social DeterminantsSocial InfoQuestionAnswerNotesPRAPAREWhat is your current housing situation?I have housingAre you worried about losing your housing?NoWhat is the highest level of school that you have finished?More than high schoolWhat is your current work situation?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 Check all that applyI do not have problems meeting my needsHas lack of transportation kept you from medical appointments, meetings, work or from getting things needed for daily living?NoHow often do you see or talk to people that you care about and feel close to? (For example: talkingto friends on the phone, visiting friends or family, going to pentecostal or club meetings)More than 5 times a weekHow stressed are you? Stress is when someone feels tense, nervous, anxious, or can't sleep at nightbecause their mind is troubledSomewhat In the past year have you spent more than 2 nights in a row in a fpc, fpc, long term center, orjuvenile correctional facility?NoAre you a refugee?NoWhat country are you from?[place]Do you feel physically and emotionally safe where you currently live?YesIn the past year, have you been afraid of your partner or ex-partner?NoPRAPARE Score:1Sexual History:Social Property PartnerQuestionAnswer NotesFamily PlanningAre you or your partner planning on becoming in the next year if not already ?No? What type of contraception are you using? Female SterilizationDrugs/Alcohol/Caffeine:Social Blue Lane TechnologieserNotesCAGE- AID Questionnaire (2018 Edition)Have you ever felt that you ought to cut down on your drinking or drug use?NoHave people annoyed you by criticizing your drinking or drug use?NoHave you ever felt bad or guilty about your drinking or drug use? NoHave you ever had a drink or used drugs first thing in the morning to steady your nerves or to get rid of a hangover?NoCAGE-AID Soiyf8UnqfzolybvtudyMlysowhy Tobacco Use:Social Good TechnologyAnswerNotesTobacco Control (Standard)Tobacco use: Former smoker Problems Problem Type SNOMED Code ICD Code Onset Dates Problem Status W/U Status Risk Notes Problem Mixed hyperlipidemia (712987379) Mixed hy perlipidemia (E78.2) ActiveconfirmedProblemSevere depression (226226644)Severe depression (F32.2) ActiveconfirmedProblemHypothyroidism (98328306)Hypothyroidism, unspecified type (E03.9)ActiveconfirmedProblemChronic fatigue syndrome (55709106)Chronic fatigue (R53.82)Activeconfirmed Vital Signs Heart Rate 53 /min 03/16/2025 Yamil Pangista 03/16/2025 04:37:21 PM EDT > Temperature 98.2 degrees Fahrenheit 03/16/2025 Wats on, Joyce 03/16/2025 04:37:21 PM EDT > Respiratory Rate 18 /min 03/16/2025 Edward Pang 03/16/2025 04:37:21 PM EDT > Blood pressure diastolic 86 mm Hg 03/16/2025 Elie son, Joyce 03/16/2025 04:37:21 PM EDT > Oximetry 99 % 03/16/2025 Pang Joyce 03/16/2025 04:37:21 PM EDT > Height-cm 172.72 cm 03/16/2025 Joyce Pang 03/16/2025 04:37:21 PM EDT > Weight-kg 133.09 kg 03/16/2025 Bird Joyce 03/16/2025 04:37:21 PM EDT > Height 68 in 03/16/2025 Joyce Pang 03/16/2025 04:37:21 PM EDT > Blood pressure systolic 126 mm Hg 03/16/2025 Wats Joyce young 03/16/2025 04:37:21 PM EDT > Weight 293.4 lbs 03/16/2025 Joyce Pang 03/16/2025 04:37:21 PM EDT > BMI 44.61 kg/m2 03/16/2025 Bird Joyce 03/16/2025 04:37:21 PM EDT > Encounters Encounter Location Date Provider Diagnosis Main [address] [id number] 11/15/2024 Eros Lopez Dysuria R30.0 ; Re current UTI N39.0 ; Severe depression F32.2 ; SVT (supraventricular tachycardia) I47.10 ; Chronic fatigue R53.82 ; Screening for diabetes mellitus (DM) Z13.1 and Hypothyroidism, unspecified type E03.9 Main [address], [place] [id number] 11/22/2024 Eros Lopez Mixed hyperlipidem ia E78.2 ; SVT (supraventricular tachycardia) I47.10 and Hypothyroidism, unspecified type E03.9 Main [address] [place], [place] [id number] 03/03/2025 Eros Studd Hypothyroidism, un specified type E03.9 ; Mixed hyperlipidemia E78.2 ; Encounter for screening for HIV Z11.4 ; Dietary counseling Z71.3 ; Exercise counseling Z71.82 and BMI 40.0-44.9, adult Z68.41 Main [address] [place], [place] [id number] 03/16/2025 Peyton Ysabel Dysuria R30.0 ; Ki dney pain N23 ; BMI 40.0-44.9, adult Z68.41 and Morbid (severe) obesity due to excess calories E66.01 Main [address], [place] [id number] 12/15/2024 Eros Studd [address] [place], [place] [id number] Qzn[address]Rug[address] [place], [place] [address]/2024Justin WmxwbScav[address] [facility] [place] [id number]/Justin DjowmYung[address]30 [address] [facility] [id number] 03/17/2025Justin StuddSVT (supraventricular tachycardia) I47.30[address] [place], [place] [id number]/Justin StuddMixed hyperlipidemia E78.2[address] [place], [place] [id number]/Justin StuddStony Hudsb7844 [place] [address]/Justin YlwflUdfw6763 [facility] [facility] [id number]/Justin IpzibPkbo7111 [facility] [facility] [place] [id number]/Justin QdgceEkdy3541 [address] [facility] [id number] 06/21/2025Justin Studd Assessments Encounter Date Diagnosis (ICD Code) Assessment Notes Treatment Notes Treatment Clinical Notes Section Notes 11/22/2024 Mixed hyperlipidemia (ICD-10 - E 78.2) i will start low dose statin therpay at this time pts ASCVD risk was 1.2% however she has history of SVT i will follow in 6 months 03/03/2025Hypothyroidism, unspecified type (ICD-10 - E03.9) lab ordered for 3 months recehck lab then come to appt to discuss 11/22/2024SVT (supraventricular tachycardia) (ICD-10 - I47.10) Will refer to cardiology once pt has a computer numerical control grinder they can be seen by with their insurance pt will go to the Er with any new or worsening symptoms of but not limited to chest pain, shortnessof breath, blurry vision, or headaches 03/03/2025Mixed hyperlipidemia (ICD-10 - E78.2) recheck at at this time if still elevated will start ezetimde for as she was intolerant to the statin 03/16/2025Dysuria (ICD-10 - R30.0) Urine Dip Negative Pt has frequent recurrent UTI's, would like antibiotic at this time RX sent for Bactrim Pt has referral for Urology, trying to schedule USN Retroperitoneal ordered at this time to evaluate kidney status, possible stones. Will call w/ results F/U 1 month or PRN w/ PCP 03/16/2025Kidney pain (ICD-10 - N23)11/15/2024Dysuria (ICD-10 - R30.0) pts UA was clear will send for culture as she states her cystex has caused negative UAs in the past no abx needed at this time 11/15/2024Recurrent UTI (ICD-10 - N39.0) pt states she has had recurrent UTI refer to urology for further evlaution 03/17/2025SVT (supraventricular tachycardia) (ICD-10 - I47.10)03/17/2025Mixed hyperlipidemia (ICD-10 - E78.2)11/15/2024Severe depression (ICD-10 - F32.2) pt has followed with psych in the past and did not like it she is open to a referral to at this time but would like to wait 11/22/2024Hypothyroidism, unspecified type (ICD-10 - E03.9)Stable. Advised to continue current dose of levothyroxine. Will repeat labs in 3 months.03/16/2025 BMI 40.0-44.9, adult (ICD-10 - Z68.41)03/03/2025Encounter for screening for HIV (ICD-10 - Z11.4)11/15/2024SVT (supraventricular tachycardia) (ICD-10 - I47.10) pt has been well mainatined on atenolol per patient I will order labs at this time obtian records pt will go to the Er with any new or worsening symptoms of but not limited to chest pain, shortnessof breath, blurry vision, or headaches 03/16/2025Morbid (severe) obesity due to excess calories (ICD-10 - E66.01) 11/15/2024hronic fatigue (ICD-10 - R53.82)03/03/2025Dietary counseling (ICD-10 - Z71.3)03/03/2025Exercise counseling (ICD-10 - Z71.82)03/03/2025MI 40.0-44.9, adult (ICD-10 - Z68.41)11/15/2024Screening for diabetes mellitus (DM) (ICD-10 - Z13.1)11/15/2024Hypothyroidism, unspecified type (ICD-10 - E03.9) recheck thyroid follow in 1 week Plan Of Treatment No Information Insurance Providers Payer Name Payer Address Payer Phone Subscriber Number Group Number Insured Name Patient Relationship to Insured Coverage Start Date Coverage End Date [facility] [address] [place] [phone] [id number] Ewa Loza - patient is the [id number] 2024 Medical (General) History Surgical History Surgery Date(Month/Year) hysterectomy including cervix, one ovary left appendectomytwo cardiac ablasionsdiscectomyHospitalization History Reason Date(Month/Year) see above
--- OUTSIDE RECORDS SUMMARY | 2025-07-14 03:48 | XMS_ITS | Clinical Summary ---
Author Organization [facility] Address [address] [place] [address] Phone Care Team Providers Care Casino Controller Name Role Phone LillianaAsher bryant Primary Care Provider + [phone] Allergies Active AllergyReactionsCriticalityNoted SvttIirxfhhiDvgcspoficFfkepusp82/05/2021 Medications MedicationSigDispense QuantityRefillsLast FilledStart DateEnd DateStatus atenolol (Tenormin) 25 mg tablet Take 1 tablet (25 mg) by mouth once daily.07/06/2024ctive levothyroxine (Synthroid, Levoxyl) 25 mcg tablet Take 1 tablet (25 mcg) by mouth once daily.05/03/2024ctive famotidine (Pepcid) 20 mg tablet Take 1 tablet (20 mg) by mouth twice a day.07/06/2024ctive cholecalciferol (Vitamin D-3) 125 mcg (5000 UT) capsule Take 2 capsules (250 mcg) by mouth once daily.05/06/2023ctive cyanocobalamin (Vitamin B-12) 1,000 mcg tablet Take 1 tablet (1,000 mcg) by mouth once daily.10/29/2023ctive loratadine (Claritin) 10 mg tablet Take 1 tablet (10 mg) by mouth once daily.07/06/2024ctive Active Problems ProblemNoted DateDiagnosed DateSVT (supraventricular tachycardia)07/16/2024Sinus szdegtlutdr85/13/2024MI 40.0-44.9, adult07/16/2024Former wdsluk1207/16/2024 Family History Medical HistoryRelationNameCommentsStrokeBrotherBipolar disorderFatherCancer FatherHypotensionFatherCancerMaternal GrandmotherDiabetes type IMaternal GrandmotherAneurysmMotherStrokeMotherHeart failureOtherCancerPaternal GrandmotherDiabetes type IPaternal GrandmotherStrokeSisterRelationNameStatus CommentsBrotherFatherMaternal GrandmotherMotherOtherPaternal GrandmotherSister Social History Tobacco UseTypesPacks/DayYears UsedDateSmoking Tobacco: FormerCigarettes Smokeless Tobacco: Never Tobacco Cessation:Counseling Given: Yes Alcohol UseStandard Drinks/WeekCommentsYes0 (1 standard drink = 0.6 oz pure alcohol)occCommentsUnknownSex and Gender InformationValueDate Recorded Sex Assigned at BirthNot on fileLegal QskFzahba36/26/2022 5:33 PM ESTGender IdentityNot on fileSexual OrientationNot on file Last Filed Vital Signs Vital SignReadingTime TakenCommentsBlood Okxvkksa012/7007/16/2024 9:52 AM EST Guxzi935107/16/2024 9:51 AM OOPWqirnjrzhao32.3 ??C (97.3 ??F)05/10/2020 6:18 AM EDTRespiratory Guvm6999 6:18 AM EDTOxygen Saturation--Inhaled Oxygen Concentration--Zwcqjo730 kg (290 lb)07/16/2024 9:51 AM TOJTifnvv381.3 cm (5' 9 ) 07/16/2024 9:51 AM ESTBody Mass Index42.8307/16/2024 9:51 AM EST Plan of Treatment Health MaintenanceDue DateLast DoneCommentsCT Jxwrzhtepnto1976FIT-DNA (Cologuard)1976FIT1976HIV Kfkgcyowy1976Lipid Panel1976 Hqnjqzafcjbhd1976TSH Level1976MMR Vaccines (1 of 1 - Standard series)02/05/1977Diabetes Vqxdtkyqq91/05/1994Hepatitis C Jbiqfyfnt79/05/1994 Cervical Cancer Hahwkmvrx54/05/1997HPV/Twhpth8102/05/1997Pap Smear02/05/1997 DTaP/Tdap/Td Vaccines (1 - Tdap)02/05/1998Hepatitis B Vaccines (2 of 3 - Hep B Twinrix 3-dose series)Mammogram/04/2023, 01/10/2023, 01/10/2023Yearly Adult Dkpqduvz42/27/752916/, 10/22/2022 Influenza Vaccine (#1)/, 05/23/2015COVID-19 Vaccine (1 - season)2025Zoster Vaccines (1 of 2)02/05/20265273Krizicgzxiy75/29/2034 12/01/2023olorectal Cancer Vvxjeuovr13/29/2034Hepatitis A VaccinesAged Out 05/06/2006No longer eligible based on patient's age to complete this topicHIB VaccinesAged OutNo longer eligible based on patient's age to complete this topic HPV VaccinesAged OutNo longer eligible based on patient's age to complete this topicIPV VaccinesAged OutNo longer eligible based on patient's age to complete this topicMeningococcal VaccineAged OutNo longer eligible based on patient's age to complete this topicPneumococcal Vaccine: Pediatrics and At-Risk Adult PatientsAged OutNo longer eligible based on patient's age to complete this topic Rotavirus VaccinesAged OutNo longer eligible based on patient's age to complete this topic Insurance Care Teams Team MemberRelationshipSpecialtyStart DateEnd Date Asher Mae DO [address], [place] [address] [facility] Wskdslld92/13/24
--- OUTSIDE RECORDS SUMMARY | 2025-07-14 03:48 | XMS_ITS | CCD ---
Author Organization [facility] CliniSynh Care Team Providers Care Recording Studio Internship Name Role Phone KAJAL CHIN Consulting Unavailable KAJAL CHIN Attending Unavailable DR NORMA DRAKE Primary Care Unavailable KAJAL CHIN Admitting Unavailable THEO LÓPEZ Unavailable Lillianalong Asher ACEVES Primary Care Provider DEYANIRA AGUILAR Attending Unavailable ASHER MAE Primary Care Unavailab le Asher Mae DO Primary Care Provider [phone] NORMA DRAKE Attending Unavailable LILLIANALONGASHER Referring Unavailable [...] Unavailable Asher Mae DO Primary Care Provider [phone] AYAKA PRESTON Primary Care Unavailable Allergies Allergy ClassificationReported Allergen(s)Allergy TypeDate of OnsetReaction(s) Facility (1 source)gabapentinDrug AllergyThe [facility] (20 sources)gabapentin; Translations: [GABAPENTIN]Drug Fysbdkz90-45-5378 Swelling, Fac[facility]ellingMartin [facility] Medications Current Medications MedicationDrug Class(es)DatesSig (Normalized)Sig (Original)atenolol 25 mg oral tablet (20 sources)beta-Adrenergic BlockerStart: 46-87-9858vsfm 1 tablet by mouth once daily in the morningatenoloL (TENORMIN) 25 mg tablet TAKE 1 TABLET BY MOUTH ONCE DAILY IN THE MORNING 90 tablet 11/15/2024 ActiveStart: 07-06-2024 End: 73-37-6762hdrl 1 tablet by mouth in the morningatenoloL (TENORMIN) 25 mg tablet Take 1 tablet (25 mg total) by mouth in the morning. 90 tablet 07/06/2024 11/15/2024 DiscontinuedStart: 04-08-2024 End: 03-67-3163ahot 0.5 tablet by mouth in the morningatenoloL (TENORMIN) 50 mg tablet Take 0.5 tablets (25 mg total) by mouth in the morning. 04/08/2024 07/06/2024 Discontinued (Reorder)Start: 06-24-2023 End: 06-66-4500kzlq 1 tablet by mouth in the morningatenoloL (TENORMIN) 50 mg tablet take 1 tablet by mouth in the morning 30 tablet 5 12/30/2023 04/08/2024 Discontinuedcholecalciferol 0.125 mg oral capsule (20 sources)Vitamin DStart: 85-10-8018ihou 2 capsules by mouth once daily cholecalciferol, vitamin D3, (VITAMIN D3) 5,000 units capsule Indications: Vitamin D deficiency, unspecified TAKE 2 CAPSULES BY MOUTH EVERY DAY 200 capsule 3 05/06/2023 ActiveStart: 29-47-6442fvam 2 capsules by mouth once daily cholecalciferol (Vitamin D-3) 125 mcg (5000 UT) capsule Take 2 capsules (250 mcg) by mouth once daily. 05/06/2023 ActiveStart: 10-23-2022 End: 14-71-2658clfa 1 capsule by mouth in the morningcholecalciferol, vitamin D3, 2,000 units capsule Take 1 capsule (2,000 Units total) by mouth in the morning. 100 capsule 3 10/23/2022 10/28/2023 Discontinued (Dose adjustment) famotidine 20 mg oral tablet (20 sources)Histamine-2 Receptor AntagonistStart: 06-24-2023 End: 92-29-1112frbl 1 tablet by mouth in the morning, then take 1 tablet by mouth at bedtime, then take 1 tablet by mouth twice daily at bedtimefamotidine (PEPCID) 20 mg tablet Take 1 tablet (20 mg total) by mouth in the morning and 1 tablet (20 mg total) before bedtime. TAKE 1 TABLET BY MOUTH TWICE DAILY (IN THE MORNING AND BEFORE BEDTIME).60 tablet 5 07/06/2024 Activelevothyroxine sodium 0.025 mg oral tablet (20 sources)l-ThyroxineStart: 98-42-4373dgjr 1 tablet by mouth in the morning levothyroxine (SYNTHROID, LEVOTHROID) 25 MCG tablet Take 1 tablet (25 mcg total) by mouth in the morning. 90 tablet 1 11/16/2024 ActiveStart: 06-24-2023 End: 67-96-0426yvmv 1 tablet by mouth in the morninglevothyroxine (SYNTHROID, LEVOTHROID) 25 MCG tablet Take 1 tablet (25 mcg total) by mouth in the morning. 90 tablet 1 05/03/2024 11/16/2024 Discontinued (Reorder)loratadine 10 mg oral tablet (19 sources)Start: 06-24-2023 End: 27-56-4705liqr 1 tablet by mouth in the morningloratadine (CLARITIN) 10 mg tablet Take 1 tablet (10 mg total) by mouth in the morning. 90 tablet 3 07/06/2024 Activenirmatrelvir-ritonavir (PAXLOVID) tablets (1 source)Start: 04-08-2024 End: 74-99-2760gglfedgppxeg-ritonavir (PAXLOVID) tablets Take 3 tablets by mouth in the morning and 3 tablets before bedtime. Do all this for 5 days. For doses of 3 tablets - Take two 150 mg nirmatrelvir (pink) tablets at the same time as one 100 mg ritonavir (white) tablet per dose.. 30 tablet 04/08/2024 04/13/2024 Activesod sulf-pot chloride-mag sulf 1.479-0.188- 0.225 gram tablet (2 sources)Start: 67-32-4826keh sulf-pot chloride-mag sulf 1.479-0.188- 0.225 gram tablet Indications: Colitis with rectal bleeding Please see instructional sheet given by physicians office. 24 tablet 11/18/2023 Activesulfamethoxazole 800 mg / trimethoprim 160 mg oral tablet (2 sources)Dihydrofolate Reductase Inhibitor Antibacterial, Sulfonamide AntimicrobialStart: 08-02-2024 End: 57-22-9997vmlf 1 tablet by mouth once in the morningsulfamethoxazole- trimethoprim (BACTRIM DS) 800-160 mg per tablet Indications: Acute cystitis without hematuria Take 1 tablet by mouth in the morning and 1 tablet before bedtime. Do all this for 7 days. 14 tablet 08/02/2024 08/09/2024 ActiveStart: 02-19-2024 End: 78-90-0246rdyo 1 tablet by mouth once in the morningsulfamethoxazole- trimethoprim (BACTRIM DS) 800-160 mg per tablet Take 1 tablet by mouth in the morning and 1 tablet before bedtime. Do all this for 3 days. 6 tablet 02/19/2024 02/22/2024 Activevitamin b12 1 mg oral tablet (16 sources)Vitamin F92Avyoh: 40-26-7083kens 1 tablet by mouth in the morning cyanocobalamin (vitamin B-12) 1000 MCG tablet Indications: Vitamin B12 deficiency Take 1 tablet (1,000 mcg total) by mouth in the morning. 100 tablet 3 10/29/2023 Active Completed/Discontinued Medications MedicationDrug Class(es)DatesSig (Normalized)Sig (Original)dicyclomine hydrochloride 20 mg oral tablet (14 sources)AnticholinergicStart: 10-04-2023 End: 35-08-8302cveqzxghtqt (BENTYL) 20 mg tablet 10/04/2023 08/02/2024 Discontinuedondansetron 4 mg disintegrating oral tablet (14 sources)Serotonin-3 Receptor AntagonistStart: 10-04-2023 End: 99-79-0671gftgvbnukrg ODT (ZOFRAN ODT) 4 mg disintegrating tablet DISSOLVE ONE TABLET ON THE TONGUE EVERY 4 HOURS NEEDED FOR 3 DAYS 10/04/2023 08/02/2024 Discontinued (Therapy completed) Problems Active Problems Problem ClassificationProblemDateDocumented DateEpisodic/ChronicAnxiety disorders (20 sources)Generalized anxiety disorder; Translations: [Generalized anxiety disorder]Onset: 042020-73-3502UtfqysgWyfyziz dysrhythmias (4 sources)Supraventricular tachycardia; Translations: [SVT (supraventricular tachycardia) ([facility])]Onset: 294441-28-0663KvyftbuUgkuvolkkzpzpqwf hemorrhage (1 source)Gastrointestinal hemorrhageOnset: 09-76-9247Wsaetwsckwojk symptoms and ill-defined conditions (8 sources)Dysuria; Translations: [Dysuria]Onset: 899619-49-6542Ecscvcff Mood disorders (17 sources)Bipolar II disorder; Translations: [Bipolar II disorder]Onset: 415808-09-0564GqlhzpcYsaefvbwyfm deficiencies (20 sources)Vitamin D deficiency; Translations: [Vitamin D deficiency, unspecified]Onset: 375384-03-5104UvacsacTvhqu nervous system disorders (2 sources)Polyneuropathy, unspecified; Translations: [Polyneuropathy, unspecified]Onset: 03-18-3921OgmovgkDvcpr nervous system disorders (1 source)Neuropathy; Translations: [Polyneuropathy, unspecified]10-28-2023 ChronicOther nutritional; endocrine; and metabolic disorders (2 sources)Body mass index 40+ - severely obese; Translations: [Body mass index (BMI) 40.0-44.9, adult]Onset: 844680-94-6897RgkwhafErqvq nutritional; endocrine; and metabolic disorders (2 sources)Body mass index (BMI) 40.0-44.9, adult; Translations: [Body mass index (BMI) 40.0-44.9, adult (Multi)]Onset: 66-65-8489QkzxysuIjhgu nutritional; endocrine; and metabolic disorders (18 sources)Morbid obesity; Translations: [Morbid (severe) obesity due to excess calories]Onset: 467657-83-1768DnlynmrRtbcd nutritional; endocrine; and metabolic disorders (1 source)Morbid (severe) obesity due to excess calories; Translations: [Morbid (severe) obesity due to excess calories]Onset: 49-61-9996SgdyezgFkshuwoo codes; unclassified (1 source)Acquired absence of both cervix and uterus; Translations: [ACQUIRED ABSENCE BOTH CERVIX AND UTERUS]Onset: 57-26-8774LcmctaucNayqdmwab and history of mental health and substance abuse codes (4 sources)Ex-smoker; Translations: [Personal history of nicotine dependence] Onset: 495490-95-6172GonlxsctQysgsbf disorders (20 sources)Subclinical hypothyroidism; Translations: [Other specified hypothyroidism]Onset: 489904-40-8856IfrkeqyLcnomddrvrop (2 sources)LOW BACK PAIN, UNSPECIFIED; Translations: [LOW BACK PAIN, UNSPECIFIED]Onset: 72-72-4097Ilqxqevfhevu (1 source)Supraventricular tachycardia, unspecified (CMS-HCC); Translations: [Supraventricular tachycardia, unspecified (CMS-HCC)]Onset: 07-16-2024 Unclassified (1 source)Annual ExamOnset: 68-07-4724Wllepjh tract infections (5 sources)Acute cystitis; Translations: [Acute cystitis without hematuria] Onset: 005417-21-7144Faiyizep Past or Other Problems Problem ClassificationProblemDateDocumented DateEpisodic/ChronicAbdominal pain (2 sources)Lower abdominal pain, unspecified; Translations: [Lower abdominal pain]Onset: 896538-82-0202HctujlwpUllnvzx dysrhythmias (20 sources)Sinus bradycardia; Translations: [Bradycardia, unspecified]Onset: 085235-28-8204UkxecxspSsivagobqqbfybtv hemorrhage (3 sources)Rectal hemorrhage; Translations: [Hemorrhage of anus and rectum] Onset: 33-28-2771PsgolecmYsig disorders (17 sources)Mood disordersOnset: 12-23-2022 Resolved: 689656-63-4606Dywwwsdikdkml gastroenteritis (4 sources)Noninfective gastroenteritis and colitis, unspecified; Translations: [Colitis]Onset: 647484-08-8572XlfsfnvlLzsehnlwybw deficiencies (16 sources)Cobalamin deficiency; Translations: [Deficiency of other specified B group vitamins]Onset: 128863-92-5490FtjmplhoIxlpj and unspecified benign neoplasm (1 source)Polyp of colon; Translations: [Polyp of colon]Onset: 12-01-2023 EpisodicOther gastrointestinal disorders (17 sources)Chronic constipation; Translations: [Other constipation]Onset: 188888-32-2317JwmulyavJfuzlsghyda; intervertebral disc disorders; other back problems (18 sources)Lumbago with sciatica, left side; Translations: [Sciatica]Onset: 077493-70-1085OxvgimtsYqqlnyunnokz (1 source)LOW BACK PAIN, UNSPECIFIED; Translations: [LOW BACK PAIN, UNSPECIFIED] Onset: 96-18-0199Gpvffjugujmh (1 source)Supraventricular tachycardia, unspecified (CMS-HCC); Translations: [Supraventricular tachycardia, unspecified (CMS-HCC)]Onset: 07-16-2024 Unclassified (16 sources)Onset: 10-28-2023 Resolved: Viral infection (1 source)Disease caused by 2019-nCoV; Translations: [COVID-19]04-08-2024 Episodic Results Test NameValueInterpretationReference RangeFacilityProvider Letteron 01-04-2025 Provider LetterProvider Letter January 04, 2025 [place] [address] : 1975 Dear Esme Loza, We have been trying to reach you with no success. It is important that you return our call regarding your Referral from your primary care provider upon receiving this letter. Also, at the time of your call, please provide us with your current information. Thank you for your prompt attention to this matter. Sincerely, [facility] [address]mariella Simpson, [place] [address] [facility]imaURINE CULTUREon 09-25-2024 Bacteria identified Cx Nom (U)CULTURE RESULTS >100,000 ORGANISMS/mL ESCHERICHIA COLI [ S [...] F TOBRAMYCIN S <=1 F TRIMETH/SULFAMETHOXAZOLE S <=08/22 FSusceptibleProHca Houston Healthcare MainlandComment on above:Performed By: #### 630-4 #### [facility] ([id number]) [address] [place] [address], [address] [place], [place] [address]PGU MACROSCOPIC NURon 90-59-4261QIYJEEYLM NURNegativeNormalNEG ProMCollege Hospital Costa MesaComment on above:Performed By: #### NUM #### [facility] ([id number]) [address] [place] [address] 18128JUZZI/HGB NURTraceAbnormalNEGOhioHealth Shelby HospitalComment on above:Performed By: #### NUM #### [facility] ([id number]) [address] [place] [address] 13541VETDZLT NURNegativeNormalNEGProHca Houston Healthcare MainlandComment on above:Performed By: #### NUM #### [facility] ([id number]) [address] [place] [address] 12520AXXMRZO NURNegativeNormalNEGProHca Houston Healthcare MainlandComment on above:Performed By: #### NUM #### [facility] ([id number]) [address] [place] [address] 86934PNFTKYNDJ ESTERASE NURSmallAbnormalNEGOhioHealth Shelby HospitalComment on above:Performed By: #### NUM #### [facility] ([id number]) [address] [place] [address] 04008SGRFPOK NURNegativeNormalNEGOhioHealth Shelby HospitalComment on above:Performed By: #### NUM #### [facility] ([id number]) [address] [place] [address] 39177JS NUR6.9Zrmqij7.0-8.5PMount St. Mary HospitalComment on above:Performed By: #### NUM #### [facility] ([id number]) [address] [place] [address] 22080CYRRNFZ NURNegativeNormalNEGProHca Houston Healthcare MainlandComment on above:Performed By: #### NUM #### [facility] ([id number]) [address] [place] [address] 94440EVSJZWAC GRAVITY NUR1.744Suvwrs9.003-1.035ProHca Houston Healthcare MainlandComment on above:Performed By: #### NUM #### [facility] ([id number]) [address] [place] [address] 84059VYTONRKPWFIH NUR0.2 eu/dLNormal<1.1PMount St. Mary Hospital Comment on above:Performed By: #### NUM #### [facility] ([id number]) [address] [place] [address]27[address]OPSI urinalysis dipstick onlyon 96-94-9892Mczywmubet (U)clear [facility] SystemExternal Poct Urine BilirubinNegativeProMedica Ohiohealth SystemExternal Poct Urine BloodTraVirginia Hospital Center SystemExternal Poct Urine ColoryellowProHocking Valley Community Hospital SystemExternal Poct Urine GlucoseNegativeProHocking Valley Community Hospital SystemExternal Poct Urine KetonesNegativeProHocking Valley Community Hospital SystemExternal Poct Urine Leukocyte EsteraseTraVirginia Hospital Center SystemExternal Poct Urine NitriteNegativePremier Health [facility] SystemExternal Poct Urine Es4WmlGtiicxHocking Valley Community Hospital SystemExternal Poct Urine ProteinNegativeProHocking Valley Community Hospital SystemExternal Poct Urine Specific Gravity1.025ProHocking Valley Community Hospital SystemExternal Poct Urine Urobilinogen0.2ProMedHahnemann University HospitalTHYROID PROFILEon 56-64-3590Suco T4 [Mass/Vol]0.81 ng/dLNormal0.61-1.60[facility] Comment on above:Performed By: #### THYR #### [facility] ([id number]) [address] [place] [address], [address] [place], [place] [address]WVG7.45 uIU/mLNormal0.49-4.67ProFulton County Health CenterComment on above:Performed By: #### THYR #### [facility] ([id number]) [address] [place] [address], [address] [place], [place] [address]DYQOK CULTUREon 84-73-6957Efwfkofh identified Cx Nom (U)CULTURE RESULTS >100,000 ORGANISMS/mL ESCHERICHIA COLI [ S [...] TOBRAMYCIN S <=1 F TRIMETH/SULFAMETHOXAZOLE S <=1/19 FSusceptibleProFulton County Health CenterComment on above:Performed By: #### 630-4 #### [facility] ([id number]) [address] [place] [address], [address] [place], [place] [address]UVH 12 Leadon 47-78-4018Obfyp bradycardia with heart rate of 47. Normal [place] interval ,QTc interval and QRS durationCPMercy Health St. Anne Hospital Work Phone: POCT urinalysis dipstick onlyOrdered By: Renay Gaines on 44-27-9244Prneobhlps (U)cloudyProMedUniversity Hospitals Portage Medical Center SystemExternal Poct Urine BilirubinNegativeProHocking Valley Community Hospital SystemExternal Poct Urine BloodModerate [facility] CenterExternal Poct Urine ColoryellowProSelect [facility] External Poct Urine GlucoseNegativePremier Health [facility] SystemExternal Poct Urine KetonesNegativeLouis Stokes Cleveland [facility] Medical CenterExternal Poct Urine Leukocyte Esterase1+ ProMWooster Community HospitalExternal Poct Urine NitriteNegativeProHocking Valley Community Hospital SystemExternal Poct Urine Ph5.5PCleveland ClinicExternal Poct Urine ProteinNegativeLouis Stokes Cleveland VA Medical CenterExternal Poct Urine Specific Gravity1.025 [facility] CenterExternal Poct Urine Urobilinogen0.2PWellSpan Surgery & Rehabilitation HospitalURINE CULTUREon 91-91-5854Vmfgvrdz identified Cx Nom (U)CULTURE RESULTS 10,000 to 50,000 ORGANISMS/mL ESCHERICHIA COLI [...] TOBRAMYCIN S <=1 F TRIMETH/SULFAMETHOXAZOLE S <=1/19 FSusceptibleFayette County Memorial HospitalComment on above:Performed By: #### 630-4 #### [facility] ([id number]) [address] [place] [address], [address] [place], [place] [address]Uezigmtb Pathologyon 72-41-3358Oauyfsja PathologyNormalOhioHealth Shelby HospitalComment on above:Result Comment: [facility] [address] [place] [address] Surgical Pathology Consultation Patient Name:ESME LOZA:1975 (Age: 48)Gender:FTaken:4Reported:12/03/2023hysician(s):Chato Lane D.O. ([phone])Copy To: Rec. #:[id number]: #[id number] Final Pathologic Diagnosis Hepatic flexure polyp x2, biopsy: Sessile serrated lesions; negative for dysplasia. Report Electronically Signed Out gr/12/03/2023Anton Antonio MD Interpretation performed at [address] [address], License number: [id number]. Clinical History Colitis, rectal bleeding. Gross Description Received in formalin labeled GEORGINA, hepatic are 8 pale-pearson delicate soft tissue fragments, 0.1-0.9 cm in greatest dimension. The specimens are filtered and submitted in single cassette. (1,ns,[id number], m4) TB tgb/12/02/2023WAK Specimen(s) Received Hepatic flexure polyp x2 Fee Codes(s): 1; 38655FPW AND AUTO DIFFon 19-99-2431NPLSMCHJ BASOPHIL0.0 X10E9/LNormal0.0-0.2 [facility] HospitalComment on above:Performed By: #### CBCA, CMP, 30394-0, THYR, 42082-9, 2132-04 #### [facility] ([id number]) [address] [place] [address], [address] [place], [place] [address]OREQLCSJ NEUTROPHIL2.5 X10E9/LNormal1.5-6.6[facility] HospitalComment on above:Performed By: #### CBCA, CMP, 98929-2, THYR, 42194-2, 2132-04 #### [facility] ([id number]) [address] [place] [address], [address] [place], [place] [address]Fqujsyvfx/100 WBC (Bld)0.4 %NormalFayette County Memorial Hospital Comment on above:Performed By: #### CBCA, CMP, 94697-5, THYR, 39831-7, 2132-04 #### [facility] ([id number]) [address], [address] [place], [place] [address]Hdftgzxknwc (Bld) [#/Vol]0.1 10*3/uLNormal0.0-0.4ProOhiohealth Hardin Memorial Hospital HospitalComment on above:Performed By: #### CBCA, CMP, 72968-9, THYR, 69533-4, 2132-04 #### [facility] ([id number]) [address], [address] [place], [place] [address]Pthiqthtnvr/100 WBC (Bld)2.7 %NormalProOhiohealth Hardin Memorial Hospital Hospital Comment on above:Performed By: #### CBCA, CMP, 37978-9, THYR, 12550-7, 2132-04 #### [facility] ([id number]) [address], [address] [place], [place] [address]Dhkukfwxdbc distribution width (RBC) [Ratio]12.6 %Normal 11.5-15.0ProFulton County Health CenterComment on above:Performed By: #### CBCA, CMP, 89141-8, THYR, 70450-1, 2132-04 #### [facility] ([id number]) [address], [facility] [address] [place], [place] [address]Umohfuvvsr (Bld) [Volume fraction]39.8 %Jpytes68-89EuhFnhckdFulton County Health CenterComment on above:Performed By: #### CBCA, CMP, 82543-2, THYR, 66355-5, 2132-04 #### [facility] ([id number]) [address] [address] [facility] [address] [place], [place] [address]Grdxmgznof (Bld) [Mass/Vol]13.8 g/cHQkugeo41.7-15.5ProMedUniversity Hospitals Parma Medical Center HospitalComment on above:Performed By: #### CBCA, CMP, 48464-6, THYR, , 2132-04 #### [facility] ([id number]) [address], [address] [place], [place] [address]Huryljhxozw (Bld) [#/Vol]1.7 10*3/uLNormal1.0-3.5ProMedica Borden HospitalComment on above:Performed By: #### CBCA, CMP, 84325-9, THYR, 46592-1, 2132-04 #### [facility] ([id number]) [address], [address] [place], [place] [address]Vzbsbcmvlkx/100 WBC (Bld)37.4 %NormalProOhiohealth Hardin Memorial Hospital Hospital Comment on above:Performed By: #### CBCA, CMP, 63656-3, THYR, 15530-1, 2132-04 #### [facility] ([id number]) [address], [address] [place], [place] [address]FGN (RBC) [Entitic mass]33.4 iyWqaidp50-46IriWjycis [place] HospitalComment on above:Performed By: #### CBCA, CMP, 95623-3, THYR, , 2132-04 #### [facility] ([id number]) [address], [address] [place], [place] [address]WUTT (RBC) [Mass/Vol]34.6 g/jDYkfaco04-39NlkHgjtwo [place] HospitalComment on above:Performed By: #### CBCA, CMP, 28928-3, THYR, 26949-6, 2132-04 #### [facility] ([id number]) [address], [address] [place], [place] [address]AAB (RBC) [Entitic vol]96 fTDqsdiu93-949KonYuuyeb [place] HospitalComment on above:Performed By: #### CBCA, CMP, 30960-5, THYR, 30342-5, 2132-04 #### [facility] ([id number]) [address], [address] [place], [place] [address]Flfhwsdsp (Bld) [#/Vol]0.3 10*3/uLNormal0-0.9ProMedica Borden HospitalComment on above:Performed By: #### CBCA, CMP, 88820-7, THYR, 87482-4, 2132-04 #### [facility] ([id number]) [address], [address] [place], [place] [address]Jbreznwnr/100 WBC (Bld)5.9 %NormalFayette County Memorial Hospital Comment on above:Performed By: #### CBCA, CMP, 67724-4, THYR, 60654-9, 2132-04 #### [facility] ([id number]) [address], [address] [place], [place] [address]Wrcxypolnux/100 WBC (Bld)53.6 %NormalFayette County Memorial Hospital Comment on above:Performed By: #### CBCA, CMP, 32094-4, THYR, 31574-3, 2132-04 #### [facility] ([id number]) [address], [address] [place], [place] [address]Satqevgb mean volume (Bld) [Entitic vol]10.2 fLNormal7-12 ProMedica [facility] HospitalComment on above:Performed By: #### CBCA, CMP, 07559-6, THYR, 19792-3, 2132-04 #### [facility] ([id number]) [address], [address] [place] [address]Ogwpybcuc (Bld) [#/Vol]203 10*3/dODknlzt634-315RmyNdrefb [facility] HospitalComment on above:Performed By: #### CBCA, CMP, 73705-0, THYR, 35192-1, 2132-04 #### [facility] ([id number]) [address], [address] [place], [place] [address]UOU COUNT4.13 X10E12/LNormal3.80-5.20ProOhiohealth Hardin Memorial Hospital Hospital Comment on above:Performed By: #### CBCA, CMP, 04947-6, THYR, 88453-5, 2132-04 #### [facility] ([id number]) [address], [address] [place], [place] [address]LEA (Bld) [#/Vol]4.6 10*3/uLNormal4.0-11.0ProSelect Medical Cleveland Clinic Rehabilitation Hospital, Beachwoodca Borden HospitalComment on above:Performed By: #### CBCA, CMP, 54682-7, THYR, 24397-0, 2132-04 #### [facility] ([id number]) [address], [address] [place], [place] [address]GLSOVXKOHHXDI METABOLIC PANELon 18-06-0699Sqnhlks [Mass/Vol]3.7 g/dLNormal3.2-5.3ProMedUniversity Hospitals Parma Medical Center HospitalComment on above:Performed By: #### CBCA, CMP, 25014-0, THYR, 71641-3, 2132-04 #### [facility] ([id number]) [address], [address] [place], [place] [address]GSG [Catalytic activity/Vol]60 U/ZFpaezk33-531FjcWiswup [place] HospitalComment on above:Performed By: #### CBCA, CMP, 39408-2, THYR, 81691-2, 2132-04 #### [facility] ([id number]) [address], [address] [place], [place] [address]PBY [Catalytic activity/Vol]14 U/LNormal0-31ProMedUniversity Hospitals Parma Medical Center HospitalComment on above:Performed By: #### CBCA, CMP, 77797-0, THYR, 55072-1, 2132-04 #### [facility] ([id number]) [address], [address] [place], [place] [address]Vdsqp gap [Moles/Vol]8 mmol/LNormal5-15[facility] [facility] Comment on above:Performed By: #### CBCA, CMP, 85417-4, THYR, 41078-9, 2132-04 #### [facility] ([id number]) [address], [address] [place], [place] [address]DUN [Catalytic activity/Vol]15 U/LNormal0-41ProOhio[facility] HospitalComment on above:Performed By: #### CBCA, CMP, 28165-8, THYR, 16554-9, 2132-04 #### [facility] ([id number]) [address], [address] [place], [place] [address]Lguoktqwk [Mass/Vol]0.6 mg/dLNormal0.3-1.2PUniversity Hospitals Lake West Medical CenterComment on above:Performed By: #### CBCA, CMP, 07655-8, THYR, 91909-2, 2132-04 #### [facility] ([id number]) [address], [address] [place], [place] [address]Mgxefhs [Mass/Vol]9.0 mg/dLNormal8.5-10.5PUniversity Hospitals Lake West Medical CenterComment on above:Performed By: #### CBCA, CMP, 00016-4, THYR, , 2132-04 #### [facility] ([id number]) [address], [address] [place], [place] [address]Vdoassnq [Moles/Vol]105 mmol/JFkxyri40-587WpsMyhlth [place] HospitalComment on above:Performed By: #### CBCA, CMP, 37558-6, THYR, 47470-4, 2132-04 #### [facility] ([id number]) [address], [address] [place], [place] [address]GJ8 [Moles/Vol]27 mmol/DVaovhm14-70XfsZaxcxtUniversity Hospitals Lake West Medical Center Comment on above:Performed By: #### CBCA, CMP, 29216-3, THYR, 55941-1, 2132-04 #### [facility] ([id number]) [address], [address] [place], [place] [address]Kxepgmlwkl [Mass/Vol]0.89 mg/dLNormal0.40-1.00ProFulton County Health CenterComment on above:Result Comment: METHOD TRACEABLE TO IDMS STANDARD Performed By: #### BÁRBARA ANTHONY, 90110-8, THYR, , 2132-04 #### [facility] ([id number]) [address], [address] [place], [place] [address]FLO/1.73 sq M.predicted among non-blacks MDRD (S/P/Bld) [Vol rate/Area]80 mL/min/{1.73_m2}Normal>59ProFulton County Health CenterComment on above: Result Comment: Reported eGFR is based on the CKD-EPI 2020 equation that does not use a race coefficient.Performed By: #### BÁRBARA ANTHONY, 22553-3, THYR, , 2132-04 #### [facility] ([id number]) [address], [address] [place], [place] [address]Abclldn [Mass/Vol]81 mg/dMIswybh66-60XioVeizgz [facility] Comment on above:Performed By: #### BÁRBARA ANTHONY, 38666-9, THYR, 74787-3, 2132-04 #### [facility] ([id number]) [address], [address] [place], [place] [address]Zwjibglrz [Moles/Vol]4.1 mmol/LNormal3.5-5.0ProFulton County Health CenterComment on above:Performed By: #### BÁRBARA ANTHONY, 46802-2, THYR, , 2132-04 #### [facility] ([id number]) [address], [address] [place], [place] [address]Bbhjaeu [Mass/Vol]6.6 g/dLNormal6.0-8.0ProR[facility] Comment on above:Performed By: #### RAJ, CMP, 20850-9, THYR, 53789-8, 2132-04 #### [facility] ([id number]) [address], [address] [place], [place] [address]Djyaek [Moles/Vol]140 mmol/EAoghpz159-224QmxCylvcs [place] HospitalComment on above:Performed By: #### RAJ, CMP, 72611-5, THYR, 34563-8, 2132-04 #### [facility] ([id number]) [address], [address] [place], [place] [address]Pydn nitrogen [Mass/Vol]14 mg/dLNormal5-23ProFulton County Health CenterComment on above:Performed By: #### RAJ, BÁRBARA, 64051-5, THYR, 32801-8, 2132-04 #### [facility] ([id number]) [address], [address] [place], [place] [address]Mbste 1996 panelon 11-01-5400Jjbxaqfnkay [Mass/Vol]220 mg/dLHigh 150-200ProFulton County Health CenterComment on above:Performed By: #### RAJ, BÁRBARA, 71749-7, THYR, , 2132-04 #### [facility] ([id number]) [address], [address] [place], [place] [address]Khtfhpibqug in HDL [Mass/Vol]48 mg/dLNormal>39ProFulton County Health CenterComment on above:Result Comment: HDL <40 mg/dL - High Risk HDL > or = 40mg/dL- Desirable HDL >60 mg/dL - Negative Risk Performed By: #### CHANTALA, CMP, 31174-9, THYR, , 2132-04 #### [facility] ([id number]) [address], [address] [place] [address]Jpaazbivvsp in LDL [Mass/Vol]134 mg/dLHigh<130ProFulton County Health CenterComment on above:Result Comment: LDL <100 mg/dL - Desirable LDL >160 mg/dL - High Risk Performed By: #### CBCA, CMP, 30550-6, THYR, 72751-1, 2132-04 #### [facility] ([id number]) [address], [address] [place], [place] [address]Kvwdwecudgb in VLDL [Mass/Vol]38 mg/dLHigh0-30ProOhiohealth Hardin Memorial Hospital HospitalComment on above:Performed By: #### RAJ, CMP, 93266-5, THYR, 47054-3, 2132-04 #### [facility] ([id number]) [address], [address] [place], [place] [address]CCOLTKWKEHF:HDL4.1Qpkjih7.0-5.0ProFulton County Health CenterComment on above:Performed By: #### CHANTALA, CMP, 85251-9, THYR, 63705-3, 2132-04 #### [facility] ([id number]) [address], [address] [place], [place] [address]Pqwsyauyrfhs [Mass/Vol]192 mg/iPEbmc97-954GxbKrysrs [place] HospitalComment on above:Performed By: #### CBCA, CMP, 17063-3, THYR, 79518-5, 2132-04 #### [facility] ([id number]) [address], [address] [place], [place] [address]ODRKAVO PROFILEon 04-18-9520Ppjk T4 [Mass/Vol]0.95 ng/dLNormal 0.61-1.60ProFulton County Health CenterComment on above:Performed By: #### RAJ, BÁRABRA, 96090-3, THYR, 15707-3, 2132-04 #### [facility] ([id number]) [address], [address] [place], [place] [address]ENW4.00 uIU/mLNormal0.49-4.67ProFulton County Health CenterComment on above:Performed By: #### CBCDerek, BÁRBARA, 71911-2, THYR, 08473-7, 2132-04 #### [facility] ([id number]) [address], [address] [place], [place] [address]SIKGIZR B12on 12-42-9782Kbfusfzab (Vitamin B12) [Mass/Vol]160 pg/sECzc151-076NerHkqibd [place] HospitalComment on above:Performed By: #### RAJ, BÁRBARA, 99357-6, THYR, , 2132-04 #### [facility] ([id number]) [address], [address] [place], [place] [address]Xfptavh D+Metabolites [Mass/Vol]on 53-72-6531TVXONBX D 25 HYD TOT53.8 ng/xEYwqtff65-336EdgLywkzd [place] HospitalComment on above:Result Comment: Vitamin D status 25 [place] Vitamin D Deficiency <20 ng/mL Insufficiency 20-29 ng/mL Sufficiency 30-100 ng/mL Toxicity >100 ng/mL NOTE: A pediatric reference range has not been established by the print journalist of this kit. The [place] [employer] recommends a Vitamin D level of = or >20ng/mL in infants and children.Performed By: #### CHANTALA, BÁRBARA, 80887-2, THYR, 32445-0, 2132-04 #### [facility] ([id number]) [address], [address] [place], [place] [address]ILVV urinalysis dipstick onlyon 97-50-5948Szokmbiegv (U)Clear [facility] SystemExternal Poct Urine BilirubinNegativeProMedica Health SystemExternal Poct Urine BloodNegativeProMedica Health SystemExternal Poct Urine ColorYellowProMedipr Health SystemExternal Poct Urine GlucoseNegative [facility] Poct Urine KetonesNegativeProMedica Health SystemExternal Poct Urine Leukocyte EsteraseNegativeProHighlands Medical Center Health System External Poct Urine NitriteNegativeProMedica Health SystemExternal Poct Urine Ph 6.5PAcadian Medical Center Health SystemExternal Poct Urine ProteinNegativeProMedica Health SystemExternal Poct Urine Specific Gravity1.025ProMedipr Health SystemExternal Poct Urine Urobilinogen0.2PKettering Health Behavioral Medical Center SystemPremier Health [facility] SystemCT LSPINE WO CONon 91-37-8596UC LSPINE WO CONEXAM: CT LSPINE WO CON HISTORY: The patient is a 47-year-old female. [...] Electronically authenticated by: THEO LÓPEZ Date: 2022-11-02 22:09[facility] (INCLUDES DIFF/PLT)on 42-36-5443Yoypfmwmz (Bld) [#/Vol] 0.029 10*3/uLNormal0-200Quest DiagnosticsComment on above:Performed By: #### 2553, 59479 #### [facility] of [address], [address] [place] [address] Baster Hand: Juventino Nava MDBasophils/100 WBC (Bld)0.5 %NormalQuest DiagnosticsComment on above:Performed By: #### 6399, 67272 #### [facility] of [address], [address] [place] [address] Baster Hand: Juventino Nava MDEosinophils (Bld) [#/Vol]0.099 10*3/uLNormal 15-500Quest DiagnosticsComment on above:Performed By: #### 6399, 80374 #### [facility] of [address], [address] [place] [address] Baster Hand: Juventino SENIORosinophils/100 WBC (Bld)1.7 %NormalQuest DiagnosticsComment on above:Performed By: #### 6399, 81295 #### [facility] of [address], [address] [place] [address] Baster Hand: Juventino Nava MDErythrocyte distribution width (RBC) [Ratio] 11.4 %Vzouqt82.0-15.0Quest DiagnosticsComment on above:Performed By: #### 6399, 40155 #### [facility] of [place] [address] [place] Hand: Juventino Nava MDHematocrit (Bld) [Volume fraction]42.8 %Normal 35.0-45.0Quest DiagnosticsComment on above:Performed By: #### 6399, 46099 #### [facility] of [place] [address] [place] Hand: Juventino Nava MDHemoglobin (Bld) [Mass/Vol]15.0 g/dLNormal 11.7-15.5Quest DiagnosticsComment on above:Performed By: #### 6399, 00691 #### [facility] of [address], [address] [place] [address] Baster Hand: Juventino Nava MDLymphocytes (Bld) [#/Vol]2.129 10*3/uLNormal 850-3900Quest DiagnosticsComment on above:Performed By: #### 6399, 49616 #### [facility] of [address], [address] [place] [address] Baster Hand: Juventino Nava MDLymphocytes/100 WBC (Bld)36.7 %NormalQuest DiagnosticsComment on above:Performed By: #### 6399, 39202 #### [facility] of [place] [address] [place]: Juventino Nava MDMCH (RBC) [Entitic mass]33.8 vhFvko42.0-33.0 Quest DiagnosticsComment on above:Performed By: #### 6399, 73363 #### [facility] of [address], [address] [place] [address] Baster Hand: Juventino Nava MDMCHC (RBC) [Mass/Vol]35.0 g/qGKshppp79.0-36.0 Quest DiagnosticsComment on above:Performed By: #### 6399, 83291 #### [facility] of [address], [address] [place] [address] Baster Hand: Juventino Nava MDMCV (RBC) [Entitic vol]96.4 iZHvjdaz00.0-100.0 Quest DiagnosticsComment on above:Performed By: #### 6399, 76768 #### [facility] of [address], [address] [place] [address] Baster Hand: Juventino Nava MDMonocytes (Bld) [#/Vol]0.394 10*3/uLNormal 200-950Quest DiagnosticsComment on above:Performed By: #### 6399, 97767 #### [facility] of [place] [address] B[employer] Hand: Juventino Nava MDMonocytes/100 WBC (Bld)6.8 %NormalQuest DiagnosticsComment on above:Performed By: #### 6399, 49354 #### [facility] of [place] [address], [address] [place] [address] Baster Hand: Juventino Nava MDNeutrophils (Bld) [#/Vol]3.149 10*3/uLNormal 1500-7800Quest DiagnosticsComment on above:Performed By: #### 6399, 65650 #### [facility] of [place] [address], [address] [place] [address] Baster Hand: Juventino Nava MDNeutrophils/100 WBC (Bld)54.3 %NormalQuest DiagnosticsComment on above:Performed By: #### 6399, 23757 #### [facility] of [address], [address] [place] [address] Baster Hand: Juventino Nava MDPlatelet mean volume (Bld) [Entitic vol]11.7 fLNormal7.5-12.5Quest DiagnosticsComment on above:Performed By: #### 6399, 99821 #### [facility] of [address] , [address] [place] [address] Baster Hand: Juventino Nava MDPlatelets (Bld) [#/Vol]242 10*3/uLNormal 140-400Quest DiagnosticsComment on above:Performed By: #### 6399, 40880 #### [facility] of [place] [address] [address] [place] [address] Baster Hand: Juventino Nava MDRBC (Bld) [#/Vol]4.44 10*6/uLNormal3.80-5.10 Quest DiagnosticsComment on above:Performed By: #### 6399, 43444 #### [facility] of [address] , [address] [place] [address] Baster Hand: Juventino Nava MDWBC (Bld) [#/Vol]5.8 10*3/uLNormal3.8-10.8 Quest DiagnosticsComment on above:Performed By: #### 6399, 63123 #### [facility] [address], [address] [place] [address] Baster Hand: Juventino MAN+FREE T4on 46-33-1332Clqu T4 [Mass/Vol]1.0 ng/dLNormal0.8-1.8Quest DiagnosticsComment on above:Performed By: #### 6399, 41112 #### [facility] [address], [address] [place] [address] Baster Hand: Juventino MAN Qn1.89 m[IU]/LNormalQuest Diagnostics Comment on above:Result Comment: Reference Range > or = 20 Years 0.40-4.50 Ranges First trimester 0.26-2.66 Second trimester 0.55-2.73 Third trimester 0.43-2.91Performed By: #### 6399, 20206 #### [facility] [address], [address] [place] [address] Baster Hand: Juventino Nava MDD-DIMER, QUANTITATIVEon 68-75-7696W-DIMER, QUANTITATIVE0.60 mcg/mL FEUHigh<0.50Quest DiagnosticsComment on above:Result Comment: The D-Dimer test is used frequently [...] 11:295(2):199-207] For additional information, please refer to: http://education.Wildfang/faq/VRI013 (This link is being provided for informational/ educational purposes only)Performed By: #### 5657 #### [facility] [place] [address] Baster Hand: Juventino Nava MDANA SCREEN, IFA, W/REFL TITER AND PATTERNon 18-93-8133VJJ SCREEN, IFANegativeNormalNEGATIVEQuest DiagnosticsComment on above:Result Comment: BISHNU IFA is a first line [...] AC-0: Negative International Consensus on BISHNU Patterns (https://doi.org/10.1515/gbzh-3460-5585) For additional information, please refer to http://education.Asthmatracker/faq/VCR081 (This link is being provided for informational/ educational purposes only.)Performed By: #### 97743, 13293, 7600, 18210, 27720, 4420, 809, 249 #### [facility] [place] [address] [employer] Hand: Juventino Nava MDC-REACTIVE PROTEINon 79-88-8454DTJ [Mass/Vol] 7.4 mg/LNormal<8.0Quest DiagnosticsComment on above:Performed By: #### 6399, 23606 #### [facility] [address], [address] [place] [address] Baster Hand: Juventino Nava MDCOMPREHENSIVE METABOLIC PANELon 05-29-2021 Albumin [Mass/Vol]4.0 g/dLNormal3.6-5.1Quest DiagnosticsComment on above: Performed By: #### 29251, 27173, 7600, 86706, 80015, 4420, 809, 249 #### [facility] [address], [address] [place] [address] Baster Hand: Juventino Nava MDAlbumin/Globulin [Mass ratio]1.6 {ratio}Normal 1.0-2.5Quest DiagnosticsComment on above:Performed By: #### 02708, 15059, 7600, 28257, 16520, 4420, 809, 249 #### [facility] of [address], [address] [place] [address] Baster Hand: Juventino Nava MDALP [Catalytic activity/Vol]68 U/KNjxtqo81-588 Quest DiagnosticsComment on above:Performed By: #### 23214, 26126, 7600, 15073, 01721, 4420, 809, 249 #### [facility] of [address], [address] [place] [address] Baster Hand: Juventino Nava MDALT [Catalytic activity/Vol]16 U/LNormal6-29 Quest DiagnosticsComment on above:Performed By: #### 81966, 49972, 7600, 90083, 72805, 4420, 809, 249 #### [facility] of [address], [address] [place] [address] Baster Hand: Juventino Nava MDAST [Catalytic activity/Vol]13 U/BUleizl20-44 [facility] DiagnosticsComment on above:Performed By: #### 17201, 11358, 7600, 11939, 31585, 4420, 809, 249 #### [facility] of [address], [address] [place] [address] Baster Hand: Juventino Nava MDBilirubin [Mass/Vol]0.8 mg/dLNormal0.2-1.2 Quest DiagnosticsComment on above:Performed By: #### 80425, 88412, 7600, 28356, 78224, 4420, 809, 249 #### [facility] of [address], [address] [place] [address] Baster Hand: Juventino Nava MDBUN/CREATININE RATIONOT APPLICABLENormal6-22 Quest DiagnosticsComment on above:Performed By: #### 79985, 08551, 7600, 39984, 96210, 4420, 809, 249 #### [facility] of [place] [address] Baster Hand: Juventino Nava MDCalcium [Mass/Vol]9.5 mg/dLNormal8.6-10.2Quest DiagnosticsComment on above:Performed By: #### 60624, 92917, 7600, 75184, 89744, 4420, 809, 249 #### [facility] of [place] [address] Baster Hand: Juventino Nava MDChloride [Moles/Vol]102 mmol/UTxllyi60-447 Quest DiagnosticsComment on above:Performed By: #### 86888, 05758, 7600, 57550, 58649, 4420, 809, 249 #### [facility] of [place] [address] Baster Hand: Juventino Nava MDCO2 [Moles/Vol]29 mmol/SQefeqv29-49Ojnyz DiagnosticsComment on above:Performed By: #### 59540, 44316, 7600, 06181, 56941, 4420, 809, 249 #### [facility] of [place] [address] Baster Hand: Juventino Nava MDCreatinine [Mass/Vol]0.76 mg/dLNormal0.50-1.10 Quest DiagnosticsComment on above:Performed By: #### 32067, 33466, 7600, 80565, 29107, 4420, 809, 249 #### [facility] of [place] [address] Baster Hand: Juventino Nava MDeGFR NON-AFR. PIWPQSHI40 mL/min/1.86h0Skdthy> OR = 60Quest DiagnosticsComment on above:Performed By: #### 98972, 92348, 7600, 77870, 54689, 4420, 809, 249 #### [facility] [place] [address] Baster Hand: Juventino Nava MDGFR/1.73 sq M.predicted among blacks MDRD (S/P/Bld) [Vol rate/Area]110 mL/min/{1.73_m2}Normal> OR = 60[facility] Comment on above:Performed By: #### 89167, 77677, 7600, 24121, 61819, 4420, 809, 249 #### [facility] [place] [address] Baster Hand: Juventino Nava MDGlobulin (S) [Mass/Vol]2.5 g/dLNormal1.9-3.7 Quest DiagnosticsComment on above:Performed By: #### 53569, 06511, 7600, 09665, 35249, 4420, 809, 249 #### [facility] [place] [address] Baster Hand: Juventino Nava MDGlucose [Mass/Vol]94 mg/sFXofann66-544Mdxzv DiagnosticsComment on above:Result Comment: Non-fasting reference intervalPerformed By: #### 33167, 31497, 7600, 40507, 48319, 4420, 809, 249 #### [facility] [place] [address] Baster Hand: Juventino Nava MDPotassium [Moles/Vol]4.2 mmol/LNormal3.5-5.3 [facility] DiagnosticsComment on above:Performed By: #### 04903, 31508, 7600, 86659, 92260, 4420, 809, 249 #### [facility] [place] [address] Baster Hand: Juventino Nava MDProtein [Mass/Vol]6.5 g/dLNormal6.1-8.1Quest DiagnosticsComment on above:Performed By: #### 34388, 54871, 7600, 29405, 65051, 4420, 809, 249 #### [facility] of [address], [address] [place] [address] Baster Hand: Juventino AMESodium [Moles/Vol]138 mmol/ZNfgdgm599-229Huama DiagnosticsComment on above:Performed By: #### 66746, 15356, 7600, 98833, 48347, 4420, 809, 249 #### [facility] of [address], [address] [place] [address] Baster Hand: Juventino Nava MDUrea nitrogen [Mass/Vol]12 mg/dLNormal7-25 [facility] DiagnosticsComment on above:Performed By: #### 60919, 16917, 7600, 54030, 93116, 4420, 809, 249 #### [facility] [place] [address] Baster Hand: Juventino Nava MDLIPID PANEL, [facility] 25-59-4892Xdmwdaeocyn [Mass/Vol]230 mg/dLHigh<200Quest DiagnosticsComment on above:Order Comment: FASTING:NO FASTING: NOPerformed By: #### 64093, 34490, 7600, 27189, 21791, 4420, 809, 249 #### [facility] of [place] [address] Baster Hand: Juventino Nava MDCholesterol in HDL [Mass/Vol]54 mg/dLNormal> OR = 50Quest DiagnosticsComment on above:Order Comment: FASTING:NO FASTING: NOPerformed By: #### 31661, 51602, 7600, 24167, 91686, 4420, 809, 249 #### [facility] of [place] [address] Baster Hand: Juventino Nava MDCholesterol in LDL [Mass/Vol]145 mg/dLHigh [facility] DiagnosticsComment on above:Order Comment: FASTING:NO FASTING: NOResult Comment: Reference range: <100 Desirable range <100 mg/dL for primary prevention; <70 mg/dL for patients with CHD or diabetic patients with > or = 2 CHD risk factors. LDL-C is now calculated using the Pooja calculation, which is a validated novel method providing better accuracy than the Friedewald equation in the estimation of LDL-C. Yousif CHING et al. GRACIA. 2013;310(19): 5987-4078 (http://education.Octopus Deploy.Gydget/faq/AEV547)Performed By: #### 60166, 70752, 7600, 12097, 08121, 4420, 809, 249 #### [facility] [address], [address] [place] [address] Baster Hand: Juventino AGOSTOholesterol.total/Cholesterol in HDL [Mass ratio]4.3 {ratio}Normal<5.0Quest DiagnosticsComment on above:Order Comment: FASTING:NO FASTING: NOPerformed By: #### 08615, 65243, 7600, 64304, 70308, 4420, 809, 249 #### [facility] [address], [address] [place] [address] Baster Hand: Juventino FISCHER HDL OJKCKJQLSMK439 mg/dL (calc)High<130 Quest DiagnosticsComment on above:Order Comment: FASTING:NO FASTING: NOResult Comment: For patients with diabetes plus 1 major ASCVD risk factor, treating to a non-HDL-C goal of <100 mg/dL (LDL-C of <70 mg/dL) is considered a therapeutic option.Performed By: #### 46011, 41455, 7600, 06842, 93138, 4420, 809, 249 #### [facility] [address], [address] [place], [place] [address] Baster Hand: Juventino Nava MDTriglyceride [Mass/Vol]172 mg/dLHigh<150Quest DiagnosticsComment on above:Order Comment: FASTING:NO FASTING: NOPerformed By: #### 15396, 75974, 7600, 20499, 69006, 4420, 809, 249 #### [facility] of [place] [address] Baster Hand: Juventino Nava MDRHEUMATOID ARTHRITIS DIAGNOSTIC PANEL 1on 92-54-4685DRIWRK CITRULLINATED PEPTIDE (CCP) AB (IGG)<16NormalQuest Diagnostics Comment on above:Result Comment: Reference Range Negative: <20 Weak Positive: 20-39 Moderate Positive: 40-59 Strong Positive: >59Performed By: #### 64023, 71039, 7600, 68994, 91986, 4420, 809, 249 #### [facility] [place] [address] Baster Hand: Juventino Nava MDINTERPRETATIONNormalQuest DiagnosticsComment on above:Result Comment: These serologic results may be found in 10-20% of patients with polyarthritis that is clinically and radiologically indistinguishable from RA.Performed By: #### 56921, 92601, 7600, 06533, 13377, 4420, 809, 249 #### [facility] [place] [address] Baster Hand: Juventino Nava MDRHEUMATOID FACTOR<14Normal<14[facility] Comment on above:Performed By: #### 89021, 88166, 7600, 39359, 85984, 4420, 809, 249 #### [facility] [place] [address] Baster Hand: Juventino Nava MDSED RATE BY MODIFIED WESTERGRENon 05-29-2021 SED RATE BY MODIFIED WESTERGREN9 mm/hNormal< OR = 20Quest DiagnosticsComment on above:Performed By: #### 44307, 04434, 7600, 72789, 22354, 4420, 809, 249 #### [facility] [place] [address] Baster Hand: Juventino Nava MDTSH+FREE T4on 06-34-6497Mbsy T4 [Mass/Vol]1.0 ng/dLNormal0.8-1.8Quest DiagnosticsComment on above:Performed By: #### 10075, 62332, 7600, 08698, 60343, 4420, 809, 249 #### [facility] [address], [address] [place] [address] Baster Hand: Juventino Nava MDSHRINERS HOSPITAL FOR CHILDREN Qn1.52 m[IU]/LNormalQuest Diagnostics Comment on above:Result Comment: Reference Range > or = 20 Years 0.40-4.50 Ranges First trimester 0.26-2.66 Second trimester 0.55-2.73 Third trimester 0.43-2.91Performed By: #### 96569, 41787, 7600, 24969, 59069, 4420, 809, 249 #### [facility] [address], [address] [place], [place] [address] Baster Hand: Juventino Nava MDVITAMIN D,25-OH,TOTAL,IAon 56-86-6542WRRJQPH D,25-OH,TOTAL,IA26 ng/yJRwz23-434Lmxzs DiagnosticsComment on above:Result Comment: Vitamin D Status 25-OH Vitamin D: Deficiency: <20 ng/mL Insufficiency: 20 - 29 ng/mL Optimal: > or = 30 ng/mL For 25-OH Vitamin D testing on patients on D2-supplementation and patients for whom quantitation of D2 and D3 fractions is required, the QuestAssureD(TM) 25-OH VIT D, (D2,D3), LC/MS/MS is recommended: order code 71502 (patients >2yrs). See Note 1 Note 1 For additional information, please refer to http://education.[employer].Gydget/faq/GDE936 (This link is being provided for informational/ educational purposes only.)Performed By: #### [id number] #### [facility] [address], [address] [place], [place] [id number] Baster Hand: Juventino Nava MDCULTURE, URINE, ROUTINEon [id number], URINE, ROUTINESEE NOTEAbnormalQuest DiagnosticsComment on above:Result Comment: CULTURE, URINE, ROUTINE Micro Number: [id number] Test Status: Final Specimen Source: Urine Specimen [...] cefaclor, cefdinir, cefpodoxime, cefprozil, cefuroxime, cephalexin and loracarbef.Performed By: #### [id number] #### [facility] [address], [address] [place] [address] [id number] Baster Hand: Juventino Nava MDCORONAVIRUS 2018, SCREEN ASYMPTOMATICon [id number] 2019,PCRCanceledSwift County Benson Health ServicesComment on above:Order Comment: TEST CORONAVIRUS 2019, SCREEN ASYMPTOMATIC WAS CANCELLED, 06/30/2020 15:33 DUPLICATE ORDER.Result Comment: . This assay is designed to [...] patient management decisions. Fact sheet for providers: https://www.fda.gov/media/929921/download Fact sheet for patients: https://www.fda.gov/media/037698/download This test has received [facility] Emergency Use Authorization (EUA) and has been verified by [facility] ([facility]). This test is only authorized for the duration of time that circumstances exist to justify the authorization of the emergency use of in vitro diagnostic tests for the detection of SARS-CoV-2 virus and/or diagnosis of COVID-19 infection under section 564(b)(1) of the Act, 21 U.S.C. 360bbb-3(b)(1), unless the authorization is terminated or revoked sooner. [facility] is certified under CLIA-88 as qualified to perform high complexity testing. Testing is performed in the [facility] laboratories located at [address] [place] [address].Performed By: #### COVSC #### [address] [place], [place] [address]CORONAVIRUS 2019,PCRCanceledNoCommunity Hospital Comment on above:Order Comment: TEST CORONAVIRUS 2019, SCREEN ASYMPTOMATIC WAS CANCELLED, 06/30/2020 15:32 DUPLICATE ORDER.Result Comment: . This assay is designed to [...] patient management decisions. Fact sheet for providers: https://www.fda.gov/media/509532/download Fact sheet for patients: https://www.fda.gov/media/909659/download This test has received [facility] Emergency Use Authorization (EUA) and has been verified by [facility] ([facility]). This test is only authorized for the duration of time that circumstances exist to justify the authorization of the emergency use of in vitro diagnostic tests for the detection of SARS-CoV-2 virus and/or diagnosis of COVID-19 infection under section 564(b)(1) of the Act, 21 U.S.C. 360bbb-3(b)(1), unless the authorization is terminated or revoked sooner. [facility] is certified under CLIA-88 as qualified to perform high complexity testing. Testing is performed in the [facility] laboratories located at [address] [place] [address].Performed By: #### COVSC #### [address] [id number] SCREENon 94-30-7857cGIW Coag (Bld) [Time]30 s Vlhxei80 - 35Ev[facility] Army Community HospitalComment on above:Result Comment: THE APTT IS NO LONGER USED FOR MONITORING UNFRACTIONATED HEPARIN THERAPY. FOR MONITORING HEPARIN THERAPY, USE THE HEPARIN ASSAY.Performed By: #### COAGS #### [address] [id number] Coag (PPP) [Relative time]1.0 {INR}Normal0.9 - 1.1[facility] Community HospitalComment on above:Performed By: #### COAGS #### [address] [id number] Coag (PPP) [Time]11.5 yOvhjxf91.1 - 13.3[facility] Community HospitalComment on above:Performed By: #### COAGS #### [address] [id number] Progress Note-Electrophysiologyon 84-74-9827Fawbb Progress Note-ElectrophysiologyService: Electrophysiology Assessment and Plan: Code Status: Code [...] of infection. The patient should call the handbag operator immediately if symptoms recur, or for any [...] and His bundle sites were mapped with colco-uw-zmiuj electroanatomical activation mapping and pace mapping from both the right atrial catheter and the ablation catheter. An Imperator mapping system was used to create a [...] Completion Last Updated: 10-May-2020 12:35 by Tasneem Vadles)[facility] History and Physical - Surgical Update < 30 dayson 65-01-3082Jathaml and Physical - Surgical Update < 30 daysHistory & Physical Reviewed: /Lactating: Are You no [...] - Surgical Update < 30 days 10-May-2020 09:22[facility] CenterHistory and Physical - Surgical Update < 30 daysHistory & Physical Reviewed: /Lactating: Are You no [...] From Patient Profile - Preop v2 10-May-2020 06:04[facility] CenterPatient Profile - Preop v2on 92-98-6102Tjszuet Profile - Preop h7Ocggmnu: Initial Info: How to be AddressedJamie Spoken Language PreferredEnglish Source of Informationpatient Are you currently using the Personal Electronic Health Record or MYUHCAREno Are you interested in learning more about MYCARE for the management of your healthyes, information provided Email [email or web address] Reason for Admissionfor EP study STEPHAN Primary Contact Name and NumberGlo Prado [phone] Patient Belongingsremains with patient Patient Belongings Remaining with Patientcash/credit card; cell phone/electronics; clothing; jewelry; purse/wallet Medications Brought to Hospitalno General Health: Weight in kg125.7 kilogram(s) Weight in uan013.1 pound(s) Weight Methodactual (measured) Scale Typestanding Height in feet5 feet Height in inches8 inch(es) Height in cm172.7 centimeter(s) Height Methodstated BMI (kg/m2)42.145 square meter Patient or Family Member Reaction to Anesthesiano previous reaction Blood Avoidance/Restrictionsnone Previous Transfusion Reactionno Health Mgmt: Symptoms/Conditions Managed at Homebehavioral health; cardiovascular; chronic pain; endocrine; gastrointestinal; immunological Are You no Are You Currently Breastfeedingno Behavioral Health Symptoms/Conditionsanxiety; depression Cardiovascular Symptoms/Conditionsdysrhythmia Endocrine Symptoms/Conditionsthyroid disease Gastrointestinal Symptoms/Conditionsconstipation Immunological Symptoms/Conditionsfibromyalgia Chronic Pain Locationgeneralized Barriers to Managing Healthnone Relationship/Environ: Living Arrangementshouse Lives Withspouse; adult child(spring); parent(s) Resource/Environmental Concernsnone Anticipated Transition Tojackson Services Anticipated at Transitionnone Substance: Current or [...] Learning Preferenceswritten material Cultural Considerationsnone Developmental Considerationsnone Alevism Considerationsnone Other learner availableno Falls RiskPatient location auto qualifies him/her for HIGH RISK. Are there any cultural, spiritual, hindu practices/values/needs that are important for us to [...] Last Updated: 10-May-2020 06:18 by Marietta Soria (MARY)[facility] CenterPreop Checkliston 83-47-3288Vrqzs ChecklistPreop Checklist: Preop Checklist: Arrival Tioi56-Jpq-6780 Arrival Time05:33 Procedure Typetee ep ablation Temperature C36.3 degrees C Temperature F97.3 degrees F Heart Rate62 beats per minute Respiratory Rate16 breath per minute Blood Pressure Jkxrpogx123 mm/Hg Blood Pressure Gnnqcfyts03 mm/Hg NPO Tbikcl88-Luo-7263 18:00 ID Band Onyes Allergy Bandyes Consent Signedyes H&P Completeyes Anesthesia Assessment Completedpending EKG Performedyes Chest X-Ray Performednot ordered HCG Urine TestN/A Chlorhexadine Bath Givencompleted in pre-op Nasal Antiseptic Appliednot applicable Hair Washedno Soap and water bath with hair shampoo the night before surgeryno Hat placed on prior to transportno SCD's Appliedno KELSIE Hose [...] Last Updated: 10-May-2020 06:21 by Marietta Soria (RN)[facility] CenterTransesophageal Echoon 55-61-5777Pdyrizyifocevdr EchoKathryn Ville [id number] TRANSESOPHAGEAL ECHOCARDIOGRAM REPORT Patient Name: WONGJULIET Cruz Physician: [id number] Ronnie Ambriz MD Study Date: 05/10/2020 Referring Physician: [id number] Tasneem Valdes MD, [facility] MRN/PID: [id number] PCP: Norma Drake Accession/Order#: [id number] Department Location: [address] [place] [address] Date of : 1975 Fellow: Gender: F Nurse: Admit Date: 05/10/2020 Press Brake Operator: Chato Salinas Admission Status: Outpatient Additional Staff: Height: 172.00 cm CC Report to: 4Smythe EMCLocation Weight: 126.00 kg Study Type: Transesophageal Echo BSA: 2.34 m2 Blood Pressure: 99 /75 mmHg Diagnosis/ICD: I47.1-Supraventricular tachycardia Indication: SVT Procedure/CPT: STEPHAN Complete-15681 Study Detail: The following Echo studies were performed: 2D, Doppler and color flow. Agitated saline used as a contrast agent for intraseptal flow evaluation. The patient was sedated. PHYSICIAN INTERPRETATION: STEPHAN Details: Technically adequate omniplane transesophageal echocardiogram performed. Agitated saline contrast and color flow Doppler echo was performed to assess for the presence of a patent foramenovale. STEPHAN Medication: The pharynx was anesthetized with [...] visualized. There is no indication of pulmonic valveregurgitation. Pericardium: There is no pericardial effusion noted. [...] (11-20 bubbles) was demonstrated. QUANTITATIVE DATA SUMMARY: [id number] Ronnie Ambriz MD Electronically signed on 05/10/2020 at 1:05:07 PM Final (Updated) NormalEvans Army Community HospitalCORONAVIRUS 2018, SCREEN ASYMPTOMATICon 17-69-6646Bml Specimen SourceNasal, NasopharyngealNormalUH Shore Memorial HospitalComment on above:Order Comment: TEST CORONAVIRUS 2018, SCREEN ASYMPTOMATIC WAS CANCELLED, 06/30/2020 15:32 DUPLICATE ORDER.Performed By: #### COVSC #### [facility] [address] [place], [place] [address]VNMGKIVUJCA 2019, SCREEN ASYMPTOMATICon [id number] Specimen SourceNasal, NasopharyngealNoCommunity HospitalComment on above:Order Comment: TEST CORONAVIRUS 2019, SCREEN ASYMPTOMATIC WAS CANCELLED, 06/30/2020 15:32 DUPLICATE ORDER.Performed By: #### COVSC #### [facility] [address] [place], [place] [address]UHYZTSXUXWJ 2019, SCREEN ASYMPTOMATICon [id number] Specimen SourceNasal, NasopharyngealNoCommunity HospitalComment on above:Order Comment: TEST CORONAVIRUS 2019, SCREEN ASYMPTOMATIC WAS CANCELLED, 06/30/2020 15:32 DUPLICATE ORDER.Performed By: #### COVSC #### [facility] [address] [place], [place] [address]LNSPIWARMZZ 2019, SCREEN ASYMPTOMATICon [id number] Specimen SourceNasal, NasopharyngealNoCommunity HospitalComment on above:Order Comment: TEST CORONAVIRUS 2019, SCREEN ASYMPTOMATIC WAS CANCELLED, 06/30/2020 15:33 DUPLICATE ORDER.Performed By: #### COVSC #### [facility] [address] [place] [address] Vital Signs Date TimeVital SignValuePerforming ItastiexhJvcyfbta52-27-8240 15:52-0500Body myhrqa075.7 cmValeaurelio Armstrongillo POLYMER ENGINEER-WRAP KNITTING MACHINE OPERATOR Work Phone: [facility]12-30-2024 15:52-0500Body mass index (BMI) [Ratio]44.89 kg/w7QtknjawElena Boyd POLYMER ENGINEER-WRAP KNITTING MACHINE OPERATOR Work Phone: [facility]12-30-2024 15:52-0500Body ycziquvbprh13.01 [degF]Elena Armstrongillo POLYMER ENGINEER-WRAP KNITTING MACHINE OPERATOR Work Phone: [facility]12-30-2024 15:52-0500Body iiwpov749.9 kgElena Armstrongillo POLYMER ENGINEER-WRAP KNITTING MACHINE OPERATOR Work Phone: [facility]12-30-2024 15:52-0500Diastolic blood zlpaltod60 mm[Hg]Elena Boyd POLYMER ENGINEER-WRAP KNITTING MACHINE OPERATOR Work Phone: [facility]12-30-2024 15:52-0500Heart rate 61 /minElena Boyd POLYMER ENGINEER-WRAP KNITTING MACHINE OPERATOR Work Phone: [facility]12-30-2024 15:52-0500 Respiratory rate18 /minElena Boyd POLYMER ENGINEER-WRAP KNITTING MACHINE OPERATOR Work Phone: [facility]12-30-2024 15:52-1218XhB2% (BldA) [Mass fraction]98 %Elena Boyd POLYMER ENGINEER-WRAP KNITTING MACHINE OPERATOR Work Phone: [facility]12-30-2024 15:52-0500Systolic blood wjqzrimc805 mm[Hg]Elena Boyd POLYMER ENGINEER-WRAP KNITTING MACHINE OPERATOR Work Phone: [facility]12-13-2024 09:52-0500Diastolic blood pwtwhtga41 mm[Hg]Deyanira Aguilar MD Work Phone: [phone]12-13-2024 09:52-0500 Systolic blood mhcaegwh185 mm[Hg]Deyanira Aguilar MD Work Phone: 1(076)654-[address] [place], [place] 1308012-13-2024 09:51-0500 Body esfrnm908.3 cmDeyanira Aguilar MD Work Phone: [phone] [place], [place] 1308012-13-2024 09:51-0500 Body mass index (BMI) [Ratio]42.83 kg/q4PddynavDeyanira Aguilar MD Work Phone: [phone] [place], [place] 1308012-13-2024 09:51-0500 Body umdjkc200.54 kgDeyanira Aguilar MD Work Phone: [phone]12-13-2024 09:51-0500 Heart rate47 /minDeyanira Aguilar MD Work Phone: [phone] [place], [place] 1308004-23-2024 11:43-0400 Body sgngua489.[address]04-23-2024 11:43-0400Body mass index (BMI) [Ratio]45.31 kg/m2Pmh [address] [place], [place] 4400304-23-2024 11:43-[address] [place], [place] 4400304-16-2024 09:06-0400Body height 172.7 cmNiecy Nathan POLYMER ENGINEER-WRAP KNITTING MACHINE OPERATOR Work Phone: [facility]04-16-2024 09:06-0400Body mass index (BMI) [Ratio]45.74 kg/w6RluwhjeNiecy Nathan POLYMER ENGINEER-WRAP KNITTING MACHINE OPERATOR Work Phone: [facility]04-16-2024 09:06-0400Body .44 kgNiecy Nathan POLYMER ENGINEER-WRAP KNITTING MACHINE OPERATOR Work Phone: [facility]04-16-2024 09:06-0400Diastolic blood rynvwqdy53 mm[Hg]Niecy Nathan POLYMER ENGINEER-WRAP KNITTING MACHINE OPERATOR Work Phone: [facility]04-16-2024 09:06-0400Systolic blood lpwzofeq143 mm[Hg]Niecy Nathan POLYMER ENGINEER-WRAP KNITTING MACHINE OPERATOR Work Phone: [facility]03-26-2024 07:43-0400Body wilnzb529.7 cmNorma Drake POLYMER ENGINEER-HINGING MACHINE OPERATOR Work Phone: [facility]03-26-2024 07:43-0400Body mass index (BMI) [Ratio]45.89 kg/m2Norma Drake POLYMER ENGINEER-HINGING MACHINE OPERATOR Work Phone: [facility]03-26-2024 07:43-0400Body aksufswwkjt38.71 [degF]Norma Drake POLYMER ENGINEER-HINGING MACHINE OPERATOR Work Phone: [facility]03-26-2024 07:43-0400Body mafxne242.9 kgNorma Drake POLYMER ENGINEER-HINGING MACHINE OPERATOR Work Phone: [facility]03-26-2024 07:43-0400Diastolic blood ipnoooho19 mm[Hg]Norma SIDHU Work Phone: [facility] Qib[facility]1967 07:43-0400Heart rate 64 /minNorma SIDHU Work Phone: [facility] Lvqkbd41-37-0664 07:43-0400 Respiratory rate18 /Mono SIDHU Work Phone: [facility] Acwguv03-14-0940 07:43-8554NtZ0% (BldA) [Mass fraction]98 %Norma SIDHU Work Phone: [facility] [employer] Jsymyu40-98-0930 07:43-0400Systolic blood jepevaaa29 mm[Hg]Norma SIDHU Work Phone: [facility] [employer] Omrdgh66-27-5477 16:26-0500Body znxpji703.7 cmAsher TijerinaSamaresng DO Work Phone: [facility] Guchbv99-63-2888 16:26-0500Body mass index (BMI) [Ratio]46.98 kg/n4Punscl Furlong DO Work Phone: [facility] Lnrwew14-74-8418 16:26-0500Body dsfnhhsftuf95.39 [degF]Asher Hallng DO Work Phone: [facility] Gnsebg91-13-5884 16:26-0500Body skolyp724.16 kgDentari Tijerinalong DO Work Phone: [facility] Etkpoo24-82-7860 16:26-0500Diastolic blood edynnswg11 mm[Hg]Asher Hallng DO Work Phone: [facility] Xspljr95-45-0507 16:26-0500Heart rate 83 /minDennis Paulieng DO Work Phone: [facility] Hneayx35-77-4247 16:4125OeD5% (BldA) [Mass fraction]99 %Asher Mae DO Work Phone: [facility] Cyweoh87-43-8203 16:Systolic blood mxaczhuc757 mm[Hg]Asher Mae DO Work Phone: [facility] Encounters Encounter DateEncounter TypeCare ProviderFacilityStart: 11-16-2024 End: 19-71-1693NeyyqdDvjk Cooper [facility] Phys[facility] Internal Medicine - Family MedicineStart: 11-15-2024 End: 43-49-4172AwcmqxBdfwms Hitesh Mae DO Work Phone: [facility] Physicians Internal Medicine - Family MedicineStart: 09-25-2024 End: 51-23-1556Gsylphvta department patient visitCONE HEALTH MEDCENTER HIGH POINTTARI Proctor PAULIEGlenbeigh Hospital HospitalStart: 08-02-2024 End: 65-22-6709qaymsyisdwJJSXDFP J [facility]ITALRACHELParma [facility] HospitalStart: 08-02-2024 End: 95-84-6340Vvxkbi outpatient visit 15 minutesElena Boyd APRN-MARIALUISA Work Phone: [facility] Physicians Internal Medicine - Family MedicineComment on above:Acute cystitis without hematuria (Primary Dx); Dysuria; Subclinical hypothyroidismStart: 08-02-2024 End: 44-47-3170nqqrjglpobOIFVWOY J [facility] Start: 07-16-2024 End: 90-79-0756luatunrkjmWBTCDZF [facility] AmbulatoryStart: 07-16-2024 End: 35-35-6947Aaxzrg outpatient new 45 minutesDeyanira Aguilar MD Work Phone: [facility] SystemComment on above:SVT (supraventricular tachycardia) [facility] Sinus bradycardia; BMI 40.0-44.9, adult (Multi); Former smokerStart: 07-06-2024 End: 12-91-5642BzzacbLkveg [facility] Physicians Internal Medicine - Family MedicineStart: 05-03-2024 End: 93-33-7183WmeqqmCeht Cooper CMAProMedica Physicians Internal Medicine - Family MedicineStart: 04-08-2024 End: 60-19-0630honytdxkfyCJMIDV G FURLONGProMedica [facility] Ambulatory PPGStart: 04-08-2024 End: 20-69-7313Itjaom outpatient visit 10 minutesDentari Tijerinalong DO Work Phone: [facility] Internal Medicine - Family MedicineComment on above:COVID-19 (Primary Dx)Start: 04-07-2024 End: 70-57-6892Rrfhacipy encounterDentari Proctor Furlong DO Work Phone: [facility] - [facility] MedicineStart: 02-19-2024 End: 35-25-7344Uawigx OnlyDentari Tijerinalong DO Work Phone: [facility] - [facility] MedicineStart: 02-16-2024 End: 49-87-3880dkfjsaqhrvOZMQQI G FURLONGProMedica Borden HospitalStart: 02-16-2024 End: 83-85-9650Flwmtnr encounter procedureAsher Tijerinalong DO Work Phone: [facility] Internal Medicine - Family MedicineComment on above:Urinary symptom or sign (Primary Dx)Start: 02-16-2024 End: 35-03-8107hxkghvwxptNAFJBU Hitesh [facility]ca Health SystemComment on above:Urinary symptom or sign (Primary Dx)Start: 12-30-2023 End: 21-19-2126QdtkchZrcbArleen Drake APRN-HINGING MACHINE OPERATOR Work Phone: [facility] Internal Medicine - Family MedicineStart: 12-04-2023 End: 74-36-7767Bnpummgca encounterCt Chappell [facility]ITALPro[facility] Physicians General SurgeryStart: 12-02-2023 End: 56-32-6614Yutqedmexs and management of inpatientDAVID M SOMMedStar Harbor Hospitalca [facility] HospitalStart: 12-01-2023 End: 26-05-6622Axjvjmrbfp and management of inpatientMICHAEL GRILLISProMedica Kingwood HospitalStart: 11-25-2023 End: 07-09-8003sohizapjoxYtd Pat Phone Call Provider [address] [place] [address] - Pre AdmitStart: 11-25-2023 End: 41-19-9461gnlpvwkzufOFZKUO Hitesh FURLONGBarberton Citizens Hospital HospitalStart: 11-18-2023 End: 32-49-0233bjlepdrgkkQKRTLARMason General Hospital Ambulatory P[facility] Start: 11-18-2023 End: 99-04-8719Ftaqhy outpatient new 30 minutesH[facility] POLYMER ENGINEER-WRAP KNITTING MACHINE OPERATOR Work Phone: [facility] Physicians General SurgeryComment on above: Colitis with rectal bleeding (Primary Dx); Lower abdominal painStart: 01-82-3742Bmnjxy OnlyNorma Drake POLYMER ENGINEER-HINGING MACHINE OPERATOR Work Phone: [facility] Physicians Internal Medicine - Family MedicineComment on above:Vitamin B12 deficiency (Primary Dx)Start: 10-28-2023 End: 77-87-3655wjqahinrtjSLPM R KUNProtestant Hospital HospitalStart: 10-28-2023 Encounter for general adult medical examination without abnormal findingsNORMA ÁLVAREZMarymount Hospitaltart: 10-28-2023 End: 29-99-3335Cjyuest encounter procedureNorma Drake POLYMER ENGINEER-HINGING MACHINE OPERATOR Work Phone: [facility] [employer] Work Phone: Start: 10-28-2023 End: 63-03-7444Kofsubwu preventive med est patient 40-64yrsMsury Drake POLYMER ENGINEER-HINGING MACHINE OPERATOR Work Phone: [facility] Physicians Internal Medicine - Family MedicineComment on above:Visit for annual health examination (Primary Dx); Morbid obesity (CMS-HCC); Colitis with rectal bleeding; Subclinical hypothyroidism; Vitamin D deficiency; Neuropathy; TachyarrhythmiaStart: 10-28-2023 End: 39-26-3116csvwdjjdmnFPAW ROSE [facility] Ambulatory PPGStart: 20-18-5174Izmhqyatx for general adult medical examination without abnormal findingsMARY [facility] Ambulatory PPGStart: 07-30-2023 End: 71-30-2207Fnlemo outpatient visit 5 minutesDentari Mae DO Work Phone: [facility] Internal Medicine - Family MedicineComment on above:Symptoms of urinary tract infection (Primary Dx)Start: 11-02-2022 End: 62-59-6227bzflyaqjmpLIIBTG RODRIGUEZ .Facility: Procedures DateProcedureProcedure DetailPerforming ClinicianStart: 54-51-7600Hwhyz dip stick/tablet rgnt non-auto w/o micrscpValerie Katia Boyd APRN-WRAP KNITTING MACHINE OPERATOR Work Phone: Start: 31-51-7739Hfs routine ecg w/least 12 lds w/i&r Deyanira Aguilar MD Work Phone: Start: 41-56-7720Habfe dip stick/tablet rgnt non-auto w/o micrscpDennis G Furlong DO Work Phone: Start: 39-38-0904OqnixktudyiIkcmgk Venia CMAStart: 84-06-2134Ifdoi depression screening assessmentNorma Drake POLYMER ENGINEER-HINGING MACHINE OPERATOR Work Phone: Start: 92-29-6437Weyzw dip stick/tablet rgnt non-auto w/o micrscpDennis G Furlong DO Work Phone: Start: 30-74-8775YzbnotorlznFztoyp Furlong DO Work Phone: Start: 93-41-3536Nygqz depression screening assessment Asher Tijerinalong DO Work Phone: Plan of Treatment DateCare ActivityDetailAuthorStart: 47-48-5557Oegptflsc for malignant neoplasm of colonUnUniversity Hospitals Geneva Medical CenterStart: 66-59-0269Wnuxoxbeu for malignant neoplasm of colonColonoscopyProHighlands Medical Center Health SystemStart: 02-05-2026 Zoster Vaccines (1 of 2)Zoster Vaccines (1 of 2)[facility] HospitalStart: 29-14-9014Vjpvd BMI ScreeningAdult BMI ScreeningPremier Health [facility] SystemStart: 70-94-9400Dbecw BMI Follow Up PlanAdult BMI Follow Up Plan [facility] SystemStart: 99-05-4861Dikfl BMI ScreeningAdult BMI Screening [facility] SystemStart: 30-36-6480Ewjfieu ScreeningTobacco Screening [facility] SystemStart: 94-09-0798Aixlnbt ScreeningTobacco Screening [facility] SystemStart: 34-05-4361Pigrf BMI ScreeningAdult BMI Screening [facility] SystemStart: 31-21-6809Nhexszo ScreeningTobacco Screening [facility] SystemStart: 20-93-1775Qnrbh BMI ScreeningAdult BMI Screening [facility] SystemStart: 92-56-7036Snmblom ScreeningTobacco Screening [facility] SystemStart: 67-28-7885Bwlea BMI ScreeningAdult BMI Screening [facility] SystemStart: 86-22-9853Mvdzhat ScreeningTobacco Screening [facility] SystemStart: 07-66-5900Uekkj BMI Follow Up PlanAdult BMI Follow Up PlanPremier Health [facility] SystemStart: 02-79-5701Yvgcv BMI ScreeningAdult BMI ScreeningPremier Health [facility] SystemStart: 01-23-1096Bwgeptvwqm ScreeningDepression ScreeningPremier Health [facility] SystemStart: 40-13-6684Closivr ScreeningTobacco ScreeningPremier Health [facility] SystemStart: 10-05-2024 End: 35-55-0103Zbcvjjo encounter pqzeqlefx69/04/2025 11:30 AM EST Office Visit [address] [place] [address] Deyanira Aguilar MD [address] [facility] [address] [place] [address] [facility] SystemStart: 99-61-7116Rfghc BMI ScreeningAdult BMI ScreeningPremier Health [facility] SystemStart: 12-80-5942Gkysolp ScreeningTobacco ScreeningMedina HospitalSelect Medical [facility] [facility]Start: 04-08-2024 End: 19-99-5220Ojwromvgpswf consultation with mbxgxxa2804/08/2024 10:30 AM EDT Telemedicine [facility] [address] [place] [address] Asher Mae, DO [address] [place] [address] [facility] - Family MedicineStart: 84-08-6963OSBUO- 19 Vaccine ()COVID-19 Vaccine ()[facility]: 95-52-1117Ydedtlppl vaccinationInfluenza Vaccine (#1)[facility]: 07-48-4658Cavbbwvrs for malignant neoplasm of breastMammogramUnProMedica Fostoria Community Hospital: 12-24-2023 Depression ScreeningDepression ScreeningECU Health North Hospitaltart: 12-01-2023 End: 54-43-7683Joaveexog to same day surgery ndabmu0212/01/2023 12:30 PM EDT - 12/01/2023 1:00 PM EDT Surgery [address], DO [facility] [place], [place] [id number] COLONOSCOPY DIAGNOSTIC / SCREENING [43117 (CPT )][facility] above:COLONOSCOPY DIAGNOSTIC / SCREENING [67404 (CPT )]Start: 12-01-2023 End: 38-03-9564Rkxufgnjans flx dx w/collj spec when pfrmdCOLONOSCOPY DIAGNOSTIC / SCREENING colitis, rectal bleeding 12/01/2023 12:30 [facility] Start: 07-09-4043Csvmixeihx hospital visit by tdsibsfln63/29/2024 12:30 PM EDT Hospital Encounter [facility] [address] [place] [address], DO [address] [facility] [place], [place] [id number] [facility] - SurgeryStart: 11-25-2023 End: 09-04-5973xluzxeckmt30/23/2024 2:30 PM EDT Support Visit [facility] Admit [address] [place] [address] [facility] Pre AdmitStart: 11-18-2023 End: 30-46-9579Xnjfkmb encounter qxvhwfiew16/16/2024 9:00 AM EDT Office Visit [facility] General Surgery [address], [id number] Niecy Nathan, POLYMER ENGINEER-WRAP KNITTING MACHINE OPERATOR [address] [place], [place] [id number] [facility] SurgeryStart: 14-88-4177Sxkynxsjn B Vaccines (2 of 3 - Hep B Twinrix 3-dose series)Hepatitis B Vaccines (2 of 3 - Hep B Twinrix 3-dose series)[facility] Start: 02-70-0571NWeU/Tdap/Td Vaccines (1 - Tdap)DTaP/Tdap/Td Vaccines (1 - Tdap)[facility] HospitalStart: 07-13-9144Ixirosbvc for malignant neoplasm of cervixUnProMedica Fostoria Community Hospital: 35-43-1072YXuP,Tdap and Td Vaccines (1 - Tdap)DTaP,Tdap and Td Vaccines (1 - Tdap)[facility] SystemStart: 67-99-3059Fshie BMI Follow Up PlanAdult BMI Follow Up PlanProHocking Valley Community Hospital SystemStart: 20-31-8201Edxjinix mellitus screeningDiabetes Screening [facility] HospitalStart: 83-66-2738Yztxvpbvn C screeningHepatitis C ScreeningMartin Memorial HospitalStart: 65-66-5420OKX Vaccines (1 of 1 - Standard series)MMR Vaccines (1 of 1 - Standard series)[facility]: 30-56-2888CHZ screeningHIV ScreeningMercy Health [facility]: 70-63-7346Ymaug panelLipid PanelUnProMedica Fostoria Community Hospital: 61-21-6746Lhqtinjif for malignant neoplasm of colonUnProMedica Fostoria Community Hospital: 68-75-9774Dzsfzx Adult PhysicalYearly Adult PhysicalUnUniversity Hospitals [facility] End: 49-09-1035Funaiwvs identified in Urine by CultureUrine culture (clean catch) Microbiology Routine Acute cystitis without hematuria 1 Occurrences star ting 08/02/2024 until 08/02/2025[employer] Work Phone: Comment on above:1 Occurrences starting 08/02/2024 until 08/02/2025 End: 45-85-4719Kwwjegpk identified in Urine by CultureUrine culture (clean catch) Microbiology Routine Urinary symptom or sign 1 Occurrences starting 02/01 until 02/15/2025[employer] Work Phone: Comment on above:1 Occurrences starting 02/16/2024 until 5Bacteria identified in Urine by CultureUrine culture (clean catch) Microbiology Routine Urinary symptom or sign 02/16/2024 9:06 PM EDT [facility] End: 45-55-6784VMY W Auto Differential panel - BloodCBC auto differential Lab Routine Colitis with rectal bleeding 1 Occurrences starting 10/28/2023 until 10/27/2024SoloStocksComment on above:1 Occurrences starting 10/28/2023 until 10/27/2024 End: 15-82-2526EbrdatvmzndHutdfztqvgw GI Routine Colitis with rectal bleeding 1 Occurrences starting 11/18/2023 until 11/17/2024[employer] Work Phone: Comment on above:1 Occurrences starting 11/18/2023 until 11/17/2024 End: 67-32-3076Yplydiheipqxc metabolic 2000 panel - Serum or PlasmaComprehensive metabolic panel Lab Routine Visit for annual health examination 1 Occurrences starting 10/28/2023 until 10/27/2024[employer] Work Phone: Comment on above:1 Occurrences starting 10/28/2023 until 10/27/2024 End: 29-10-4635Ggeqbnaaicioqf vitamin b-12Vitamin B12 Lab Routine Neuropathy 1 Occurrences starting 10/28/2023 until 10/27/2024Pro[facility] deviantART SystemComment on above:1 Occurrences starting 10/28/2023 until 10/27/2024 End: 71-53-0436Dptpf panelLipid panel Lab Routine Visit for annual health examination 1 Occurrences starting 10/28/2023 until10/27/2024ProHigh[facility] deviantART SystemComment on above:1 Occurrences starting 10/28/2023 until 10/27/2024 End: 30-16-1940Aastdus profile includes TSH AP0Dupdmzt profile includes TSH FT4 Lab Routine Subclinical hypothyroidism 1 Occurrences starting 08/02/2024 until 08/02/2025ProHigh[facility] deviantART SystemComment on above:1 Occurrences starting 08/02/2024 until 08/02/2025 End: 19-38-8426Mvlbrvm profile includes TSH YF7Tjxgyml profile includes TSH FT4 Lab Routine Subclinical hypothyroidism 1 Occurrences starting 10/28/2023 until 10/27/2024ProHigh[facility] deviantART SystemComment on above:1 Occurrences starting 10/28/2023 until 10/27/2024 End: 48-64-8988Zjoiygv D 25 hydroxyVitamin D 25 hydroxy Lab Routine Vitamin D deficiency 1 Occurrences starting 10/28/2023 until 10/27/2024[facility] deviantART SystemComment on above:1 Occurrences starting 10/28/2023 until 10/27/2024 Immunizations Immunization DateImmunizationNotesCare YtafnshtJgoyynak51-27-3127mbuemtptn, seasonal, injectableDennis Furlong DO Work Phone: [facility] Mibjxl33-60-3635drzavksax virus vaccine, unspecified formulationDeyanira Aguilar MD Work Phone: [facility] Work Phone: [phone], seasonal, injectable, preservative freeDennis Furlong DO Work Phone: [facility] Qtvtwj12-71-5675xdlzkufic A and hepatitis B vaccineDennis Furlong DO Work Phone: [facility] Payers DatePayer CategoryPayerPolicy [id number] Care (Private)AM[employer]ETTER [id number] Care HMO (unspecified)[id number] [facility] [id number] 2023- Present [phone] [address] [facility] [place] [address] [id number] [id number] 2..1.786926.3.57[id number] 2..1.987820.3.57[id number] 2..1.393643.3.57[id number] 2..1.269882.3.57[id number] 2.0.1.131677.3.57[id number] 2.16.840.1.733460.3.57[id number] 2.16.840.1.130315.3.57[id number] 2.16.840.1.094510.3.57[id number] 2.16.840.1.735741.3.57[id number] 2.16.840.1.986013.3.57[id number] 2.16.840.1.051101.3.57[id number] 2.16.840.1.632123.3.57[id number] 2.16.840.1.523457.3.57[id number] 2.16.840.1.955772.3.57[id number] 2.16.840.1.717464.3.57[id number] 2.840.1.616810.3.579.2.[id number] Social History DateTypeDetailFacilityStart: 28-99-2888Ppulagw smoking status NHISEx-smoker [facility] SystemHistory of tobacco useCurrent smokerUnUniversity Hospitals Geneva Medical Center Work Phone: History of tobacco useCigarette SmokerUnUniversity Hospitals Geneva Medical Center Work Phone: Start: 10-07-2022 End: 74-84-6693Puljfow use and exposureSmokeless tobacco non-userPremier Health [facility] SystemStart: 07-16-2024 End: 41-89-6178Kcjnjjkeu beverage intakeCurrent drinker of alcohol (finding) [facility] SystemStart: 27-37-3130Aebjbor CommentoccMartin Memorial Hospital Work Phone: Start: 61-93-0346Yan assigned at birthNot on file [facility] SystemStart: 06-24-2022 End: 21-83-8052Fewbrq identityNot on filePremier Health [facility] SystemStart: 07-06-2024 End: 73-60-8325Mcsmdmns to SARS-CoV-2 (event)Not sureMartin Memorial HospitalStart: 41-92-8793Wdcbxxe smoking status NHISNever smoked tobacco [facility] SystemStart: 06-24-2022 End: 30-41-2046Feehgwx of Social functionProHighlands Medical Center Health SystemDo you belong to any clubs or organizations such as confucianist groups, unions, fraternal or athletic groups, or school groups?NoPKettering Health Behavioral Medical Center SystemAre you now , , , , never or living with a partner?MarriedProHighlands Medical Center Health SystemHow often to you have a drink containing alcohol?Monthly or less [facility] SystemHow many standard drinks containing alcohol do you have on a typical day?Patient does not drinkProHocking Valley Community Hospital SystemHow often do you have 6 or more drinks on 1 occasion?NeverProHighlands Medical Center Health SystemHow hard is it for you to pay for the very basics like food, housing, medical care, and heating Somewhat hardProHighlands Medical Center Health SystemDo you feel stress - tense, restless, nervous, or anxious, or unable to sleep at night because yourmind is troubled all the time - these days [OSQ]Very muchPrem[facility] Health [facility] SystemStart: 06-24-2022 Rundkcfqv97EedZllzhg Health SystemStart: 19-74-5137Nmnfdbc CommentOccasional [facility] Hospitaltart: 30-49-8663PacClvwhh (finding)[facility] Clinical Notes 07-30-2023 to 11-15-2024 Note Date & OgieKajtCfyycieq32-06-0573 Miscellaneous Notes* Telephone Encounter - Asher G DO [place] - 11/15/2024 8:39 AM EDT Rx sent in. She is due for a wellness documented in this encounterLouis Stokes Cleveland [facility] Medical Center04-14-2025 Telephone encounter Note* Telephone Encounter - Asher Proctor DO [place] - 11/15/2024 8:39 AM EDT Rx sent in. She is due for a wellness [facility]12-30-2024 History of Present illness Narrative* Elena Boyd, ZEENAT-WRAP KNITTING MACHINE OPERATOR - 08/02/2024 4:00 PM EST Images from the original note were not included. [address] [place] [address] SUBJECTIVE: Patient ID: Esme Loza is a [...] past medical history, past social history, past surgicalhistory and problem list. Past Surgical History: Procedure Laterality Date APPENDECTOMY COLONOSCOPY DIAGNOSTIC / SCREENING N/A 12/01/[address] DO at [facility] HYSTERECTOMY OOPHORECTOMY unilateral Past Medical History: Diagnosis [...] and the following intervention(s) were applied: encouragement toexercise. Physical Exam Vitals and nursing note reviewed. [...] AUSTIN Pascal 08/02/24 1620 documented in this encounterLouis Stokes Cleveland VA Medical Center12-13-2024 History of Present illness Narrative* Deyanira Aguilar MD - 07/16/2024 9:30 AM EST Cardiology Consultation- New Consult Reason for referral: Patient is here for cardiac vascular evaluation for SVT and palpitation HPI: Wong Loza is a 49 y.o. female well-known to me. I have seen her for years ago for similar situation. She had a history of documented SVT with tendency for bradycardia when she is in sinus rhythm even on low-dose beta- ramiro. She underwent an attempt to do ablation [...] episode of palpitation intermittently. She denies any lightheadedness,dizziness or syncope. Assessment 1. History of documented [...] signing my name below, I, Roslyn Thakkar LPN, Scribe attest that this documentation has been prepared under the direction and in the presence of MD Elizabeth. Provider Attestation - Scribe documentation All medical record entries made by the Scribe were at my direction and personally dictated by me. Ihave reviewed the chart and agree that the record accurately reflects my personal performance of the history, physical exam, discussion and plan. documented in this encounterMartin Memorial Hospital Work Phone: [phone] 509-991212-13-2024 Instructions* Patient Instructions* Roslyn Paul LPN - 07/16/2024 9:30 AM [...] Ablation discussed Follow up documented in this encounterMartin Memorial Hospital Work Phone: [phone] 161-521509-05-2024 History of Present illness Narrative* Asher Mae DO - 04/08/2024 10:30 AM EDT Subjective Video Visit via Real-time Synchronous Audiovisual Provider Location: [facility] [address] [place] [address] Patient Location: Patient's home Video Visit Consent Statement: I discussed risks, benefits, and alternatives of a real-time synchronous audiovisual consultation with the patient (and any accompanying persons) including the risks that the patient's personal health details and medical records will be discussed over real-time, synchronous, interactive video/audio/telecommunication technology, the visit will not be recorded withoutthe express consent of both the provider and the patient, and that there are some limitations compared to ibdk-fq-eczr evaluations. The patient consented to the presence of additional virtual and/or in-person participants. We elected to proceed. Patient ID: Esme Loza is a 49 y.o. female. Esme agrees to a telehealth visit. She started with symptoms on Friday. She thought it was sinusesand didn't feel too bad on Friday and [...] past medical history, past social history, past surgicalhistory, problem list, and medication reconciliation was completed including current medication andpost discharge medication. Review of Systems Constitutional: Positive [...] and just stick with Tylenol. She can addRobitussin DM for the cough. She agreed to [...] mouth in the morning. documented in this encounterLouis Stokes Cleveland [facility] Medical Center09-04-2024 Miscellaneous Notes* Telephone Encounter - Ana Luisa Vargas - 04/07/2024 12:33 PM EDT Patient tested positive for covid this morning, would you be able to send in paxlovid for her. She would be okay doing video visit if we need to * Telephone Encounter - Asher Mae DO - 04/07/2024 12:33 PM EDT Put her in tomorrow for a video visit * Telephone Encounter - Ana Luisa Vagras - 04/07/2024 12:33 PM EDT Scheduled documented in this [facility]09-04-2024 Telephone encounter Note* Telephone Encounter - Ana Luisa Vargas - 04/07/2024 12:33 PM EDT Patient tested positive for covid this morning, would you be able to send in paxlovid for her. She would be okay doing video visit if we need to [facility] CenterK-MOTION InteractiveYxtabg48-66-9213 Telephone encounter Note* Telephone Encounter - Asher Mae DO - 04/07/2024 12:33 PM EDT Put her in tomorrow for a video visit [facility] centerK[facility] Work Phone: [phone] Telephone encounter Note* Telephone Encounter - Ana Luisa Vargas - 04/07/2024 12:33 PM EDT Scheduled [facility] CenterK-MOTION InteractiveDcsctp41-97-0816 History of Present illness Narrative* Asher Mae DO - 02/16/2024 1:00 PM EDT Patient thinks she has a urinary tract infection so she came in to provide a urine specimen documented in this encounterLouis Stokes Cleveland [facility] Medical Center05-02-2024 Miscellaneous Notes* Telephone Encounter - Ct Chappell CMA - 12/04/2023 10:51 AM EDT ----- Message from Chato Lane DO sent at 12/04/2023 7:08 AM EDT ----- Please let patient know that she had a few polyps which are benign and I recommend repeat surveillance colonoscopy in 5 years unless problems. Thanks, Dr. Proctor * Telephone Encounter - Ct Chappell CMA - 12/04/2023 10:51 AM EDT Spoke with patient regarding pathology results. Patient verbally understood with no further questions. Recall will be put in chart. documented in this encounterLouis Stokes Cleveland [facility] Medical Center05-02-2024 Telephone encounter Note* Telephone Encounter - Ct Chappell CMA - 12/04/2023 10:51 AM EDT ----- Message from Chato Lane DO sent at 12/04/2023 7:08 AM EDT ----- Please let patient know that she had a few polyps which are benign and I recommend repeat surveillance colonoscopy in 5 years unless problems. Thanks, Dr. Proctor [facility]05-02-2024 Telephone encounter Note* Telephone Encounter - Ct Chappell CMA - 12/04/2023 10:51 AM EDT Spoke with patient regarding pathology results. Patient verbally understood with no further questions. Recall will be put in chart. [facility]04-23-2024 Miscellaneous Notes* Perioperative Nursing Note - Gabi Abel RN - 11/25/2023 2:30 PM EDT Preoperative Education Checklist- General Surgery date: 12/01/23 Surgery time: 1230 Arrival time: 1030 1. Bring a photo ID and your insurance card with you the day of surgery. You will check in at the main lobby of the [facility]- registration desk is straight ahead as soon as you walk in. Tell them you are here for surgery. 2. If you have a Living Will/Durable Power of Show Host/Hostess for Health Care that is not on [...] after you have bathed. 5. NO nail solomon islander/acrylic on at least one finger. If you are having a hand, wrist or foot surgery then all nail solomon islander and artificial/acrylic nails must be removed from [...] least 8 hours and marijuana for 24 hoursprior to arrival for your surgery. 16. If [...] please call the Preadmission Testing office at [phone], Mon.-Fri. 7 a.m.-3 p.m. Leave a voicemail [...] days prior to procedure documented in this encounterLouis Stokes Cleveland [facility] Medical Center04-23-2024 Nurse Note* Perioperative Nursing Note - Gabi Abel RN - 11/25/2023 2:30 PM EDT Preoperative Education Checklist- General Surgery date: 12/01/23 Surgery time: 1230 Arrival time: 1030 1. Bring a photo ID and your insurance card with you the day of surgery. You will check in at the main lobby of the [facility]- registration desk is straight ahead as soon as you walk in. Tell them you are here for surgery. 2. If you have a Living Will/Durable Power of Show Host/Hostess for Health Care that is not on [...] after you have bathed. 5. NO nail solomon islander/acrylic on at least one finger. If you are having a hand, wrist or foot surgery then all nail solomon islander and artificial/acrylic nails must be removed from [...] least 8 hours and marijuana for 24 hoursprior to arrival for your surgery. 16. If [...] please call the Preadmission Testing office at [phone], Mon.-Fri. 7 a.m.-3 p.m. Leave a voicemail [...] Stop taking 0 days prior to procedure [facility]04-16-2024 History of Present illness Narrative* Niecy Nathan, POLYMER ENGINEER-WRAP KNITTING MACHINE OPERATOR - 11/18/2023 9:00 AM EDT Images from the original note were not included. Chief Complaint: Colitis, rectal bleeding History of Present Illness Esme Loza is a 48 y.o. female who presents to the office for colitis and rectal bleeding. Backin October she was having abdominal pain and bright red blood per her rectum. She presented to the [facility] ED. CT abdomen and pelvis 10/04/2023 revealed mild wall thickening of the transverse and descending colon suggesting inflammatory or infectious colitis. She was sent home on Zofran and Bentyl. Her symptoms went away on their own and then came back after she had a few alcoholic drinks. She feelsfine today. She reports constipation and chronic intermittent abdominal pain prior to bowel movements. The pain is so bad sometimes it will make her sweat. She denies diarrhea. She admits to not drink ing enough water or eating enough fiber. She [...] 0.225 gram tablet, Please see instructional sheet givenby physicians office., Disp: 24 tablet, Rfl: 0 [...] 0 min Stress: Stress Concern Present (06/24/2022) [employer] - Occupational Stress Questionnaire Feeling of Stress : Very much Social Connections: Moderately Isolated (06/24/2022) Social Connection and Isolation Panel [NHANES] Frequency of Communication with Friends and Family: Never Frequency of Social Gatherings with Friends and Family: Never Attends Alevism Services: 1 to 4 times per year [...] evacuation preparation. Patient verbalizes understanding and wishes toproceed. For constipation, recommended drinking at least 64 oz of water daily, increasing dietary fiber, taking additional fiber supplements such as Metamucil or Benefiber, increasing exercise and weight loss. Evaluation included: Preparing to see the patient (e.g., review of tests) Obtaining and/or reviewing separately obtained history Performing a medically appropriate examination and/or evaluation Counseling and educating the patient/family/caregiver Referring and communicating with other health wound care nurse Colitis with rectal bleeding [K52.9, K62.5] [place]IN MCLEOD [facility] General Surgery [place] This note was created with the assistance of a speech recognition program. While intending to generate a timely document that accurately reflects the content of the visit, no guarantee can be provided that every grammatical or spelling mistake has been or will be identified or corrected. Thank you for your understanding. AUSTIN Mcleod 11/18/23 1034 documented in this encounterLouis Stokes Cleveland [facility] Medical Center03-26-2024 History of Present illness Narrative* NAHUM Gasca - 10/28/2023 8:00 AM EDT Subjective Patient ID: Esme Loza is a 48 y.o. female. Here for annual exam She was in the ER recently at [facility] for bloody stools and abdominal cramps on [...] lbs in the last six months and plansto continue these efforts The following portions of the patient's history were reviewed and updated as appropriate: allergies, current medications, past family history, past medical history, past social history, past surgicalhistory, problem list, and medication reconciliation was completed including current medication andpost discharge medication. Review of Systems Constitutional: Positive [...] Future - Lipid panel; Future Morbid obesity (CMS-HCC) Colitis with rectal bleeding - Ambulatory referral to General Surgery (Non-[facility]); Future - CBC auto differential; Future Subclinical hypothyroidism - Thyroid profile includes TSH FT4; Future Vitamin D deficiency - Vitamin D 25 hydroxy; Future Neuropathy - Vitamin B12; Future Tachyarrhythmia The tenormin continues to work well for her heart [...] loose a substantial amount of blood - acolonscopy is ordered to further investigate her bleeding [...] and the following intervention(s) were applied: encouragement toexercise. NAHUM Gasca 10/28/23 0842 documented in this encounterLouis Stokes Cleveland VA Medical Center12-27-2023 History of Present illness Narrative* Asher Hitesh DO [place] - 07/30/2023 3:50 PM EST Patient was instructed to come in the office for a Urine Dipstick because she thought she still hadher UTI. documented in this encounterPremier Health Miami Valley Hospital [facility] SystemEvaluation note* Diagnosis SVT (supraventricular tachycardia) [facility] Other specified cardiac dysrhythmias Sinus bradycardia Other specified cardiac dysrhythmias BMI 40.0-44.9, adult (Multi) Former smoker Personal history of tobacco use, presenting hazards to health documented in this encounter [facility] Work Phone: Evaluation note* Diagnosis Acute cystitis without hematuria- Primary Dysuria Subclinical hypothyroidism Other specified acquired hypothyroidism documented in this encounter [facility]* Diagnosis Symptoms of urinary tract infection- Primary documented in this encounter [facility]* Diagnosis Urinary symptom or sign- Primary [facility] Diagnosis Urinary symptom or sign- Primary documented in this encounter [facility]* Diagnosis Visit for annual health examination- Primary Morbid obesity ([facility]) Morbid obesity Colitis with rectal bleeding Subclinical hypothyroidism Other specified acquired hypothyroidism Vitamin D deficiency Neuropathy Mononeuritis of unspecified site Tachyarrhythmia Unspecified tachycardia documented in this encounter [facility]* Diagnosis Vitamin B12 deficiency- Primary Other B-complex deficiencies [facility] in [facility]* Diagnosis Colitis with rectal bleeding- Primary Lower abdominal pain Abdominal pain, other specified site documented in this encounter [facility]* Diagnosis COVID-19- Primary documented in this encounter [facility]* Attachments The following attachments cannot be sent through Care Everywhere. * Urinary Tract Infection, Adult ED ([place]) documented [facility] SystemInstructionsNot on file documented in this encounter[facility] SystemInstructionsNot on file documented in this encounterPro[facility] SystemInstructionsNot on file documented in this [facility] SystemInstructionsNot on file documented in this [facility] SystemInstructionsNot on file documented in this encounterPro[facility] SystemInstructionsNot on file documented in this [facility]Pro[facility] SystemInstructionsNot on file documented in this [facility]Pro[facility] SystemInstructionsNot on file documented in this encounterPrem[facility] SystemReason for referral (narrative)* Consultation (Routine) - Pending ReviewSpecialtyDiagnoses / ProceduresReferred By ContactReferred To ContactGeneral Surgery Diagnoses Colitis with rectal bleeding Norma Drake, NAHUM [address] [place] [address], [address] [place] [address] Referral IDStatusReasonStart DateExpiration DateVisits RequestedVisits [id number] Review Specialty Services Required / [facility] Summary Purpose Family History No Family History [...] section and content) DATE CREATED AUTHOR 05/19/2020 [facility] DATE CREATED AUTHOR AUTHOR'S ORGANIZ ATION 06/30/2020 [facility] DATE CREATED AUTHOR AUTHOR'S ORGANIZ ATION 10/14/2021 [facility] DATE CREATED AUTHOR AUTHOR'S ORGANIZ ATION 11/06/2022 [facility] DATE CREATED AUTHOR AUTHOR'S ORGANIZ ATION 07/18/2024 [facility] DATE CREATED AUTHOR AUTHOR'S ORGANIZ ATION 08/04/2024 [facility] DATE CREATED AUTHOR AUTHOR'S ORGANIZ ATION 08/06/2024 [facility] DATE CREATED AUTHOR AUTHOR'S ORGANIZ ATION 09/28/2024 [facility] DATE CREATED AUTHOR AUTHOR'S ORGANIZ ATION 01/05/[address] [facility] Reason for Visit (unrecogniz ed section and content) ReasonCommentsEstablish CareSpecialtyDiagnoses / ProceduresReferred By Contact Referred To Contact Diagnoses SVT (supraventricular tachycardia) ([facility]) Sinus bradycardia Procedures ECG 12 Lead Deyanira Aguilar MD [address] [facility] [address], [address] [place] [address] Phone: tel: fax: Referral IDStatusReasonStart DateExpiration DateVisits RequestedVisits [id number]/13/202412/[id number] Tract InfectionpossibleReasonCommentsUrinary Tract InfectionReasonCommentsMed Refill ReasonCommentsAnnual ExamReasonCommentsRectal BleedingCOLITIS like 20 years ago. Dark clotting blood, last colonoscopy was like 25 yrs. ago REFERRED BY NORMA DRAKE, NPSpecialtyDiagnoses / ProceduresReferred By ContactReferred To Contact General Surgery Diagnoses Colitis with rectal bleeding Norma Drake, POLYMER ENGINEER-HINGING MACHINE OPERATOR [address] [place] [address] DO [address] [place] [address] Referral IDStatusReasonStgreen mountain falls DateExpiration DateVisits RequestedVisits [id number] Specialty Services Required 1ReasonOnset DateCommentsMed [id number] Date CommentsMed [id number] DateCommentsMed Pnrmvx8011/16/2024 Care Teams (unrecognized sec tion and content) Team MemberRelationshipSpecialtyStart DateEnd Date Asher Mae DO [address], [place] [address] PCP - Generalmily Yvxytcaq83/13/24Team MemberRelationshipSpecialtyStart Date End Date Asher Mae DO [address], [place] [address] PCP - [facility] Snrxjxkg34/5/21Team MemberRelationshipSpecialtyStart DateEnd Date LillianamannyAsher [address], [place] [address] PCP - [facility] Eyovgtaa08/5/21Team MemberRelationshipSpecialtyStart DateEnd Date LillianamannyAsher [address], [place] [address] PCP - [facility] Qzwnjbat05/5/21Team MemberRelationshipSpecialtyStart DateEnd Date PauliecolinAsher [address], [place] [address] PCP - [facility] Sskwveai91/5/21Team MemberRelationshipSpecialtyStart DateEnd Date LillianamannyMarceloAsher Hitesh [address], [place] [address] PCP - [facility]07/08/21Team MemberRelationshipSpecialtyStart DateEnd Date Carmelita Asher HiteshDO [address] [place] [address] [facility]07/08/21Team MemberRelationshipSpecialtyStart DateEnd Date CarmelitaMarceloAsher HiteshDO [address] [place] [address] [facility]07/08/21Team MemberRelationshipSpecialtyStart DateEnd Date LillianamannyMarceloAsher HiteshDO [address] [place] [address] [facility]07/08/21Team MemberRelationshipSpecialtyStart DateEnd Date Asher Mae DO [address], [place] [address] [facility]07/08/21Team MemberRelationshipSpecialtyStart DateEnd Date Lillianamanny Ashertari Proctor DO [address], [place] [address] [facility]09/25/24Team MemberRelationshipSpecialtyStart DateEnd Date Asher Mae DO [address], [place] [address] [facility]09/25/24 FOR RECORDS PERTAINING TO PATIENTS WHO ARE [...] BE BASED ON THE PRIMARY CLINICAL RECORDS. [facility] [employer] [facility]. provides no warranty or guarantee of the accuracy or completeness of information in this document.
[2025-07-14 04:05] LABS: Anion Gap 14.6; Blood Urea Nitrogen 13.0 mg/dL (7.0-18.0); Calcium 9.5 mg/dL (8.5-10.1); Carbon Dioxide 28.0 mmol/L (21.0-32.0); Chloride 103 mmol/L (98-107); Estimated GFR (African America >60 (>=60 mL/min/1.73m^2); Estimated GFR (Non-African Ame >60 (>=60 mL/min/1.73m^2); Glucose 103 mg/dL (74-106); Hematocrit 43.6 % (36.0-48.0); Hemoglobin 15.1 g/dL (12.0-16.0); Immature Granulocytes Abs Auto 0.07 10^3/uL (0.00-0.03); Immature Granulocytes Pct Auto 0.8 % (0.0-0.5); Lymphocytes Absolute Auto 3.4 10^3/uL (1.2-3.8); Mean Corpuscular HGB Conc 34.6 g/dL (29.9-35.2); Mean Corpuscular Hemoglobin 33.0 pg (26.7-34.0); Mean Corpuscular Volume 95.2 fL (81.0-99.0); Platelet Count 304 10^3/uL (150-450); Potassium 3.6 mmol/L (3.5-5.1); Red Blood Count 4.58 10^6/uL (4.20-5.40); Sodium 142 mmol/L (136-145); White Blood Count 9.1 10^3/uL (4.0-11.0)
== END 2025-07-14 04:29 | disposition home or self-care (01) ==
LOC: ER 03:44
PROVIDERS: Emergency Provider Student in an Organized Health Care Education/Training Program; PCP Nurse Practitioner Family
DX: I47.10 Supraventricular tachycardia, unspecified (principal); E03.9 Hypothyroidism, unspecified; Z79.890 Hormone replacement therapy; Z87.891 Personal history of nicotine dependence
CPT/HCPCS: 36415; 80048; 84484; 85025; 93005; 96374; 99284

== ENCOUNTER 2025-07-25 20:17 | Emergency (ER) | payer OTHER, SELFPAY ==
--- OUTSIDE RECORDS SUMMARY | 2025-06-06 02:15 | XMS_ITS ---
Author Organization [facility] vices Address [address] [place], [place] [id number] Care Team Providers Care Bottle And Glass Inspector Name Role Phone Eros Lopez Primary Care Provider [phone] REASON FOR VISIT 3 month hypothyroid Social History Sex Assigned At : Social History Observation Description Sex Assigned At Female Encounters Encounter Location Date Provider Diagnosis Main [address] [place], [place] [id number] 06/06/2025 Eros Lopez Plan Of Treatment Next Appt Details Provider Name:Eros Lopez, 08/01/2025 11:15:00 AM, [address], [place], [id number], Progress Notes * Galen LOZAOB:1975 (50 yo F)Acc No.[id number]:06/06/2025 Medical Note Patient: Jose Denny :?Eros PurcelldDOB:1975???Age:50 Y???Sex: FemaleDate:06/06/2025Phone:[phone]:[address] [place] [id number] Subjective: * Chief Complaints: * 3 month hypothyroid * Electronic signature of FANNIE Wihtfield on 07/25/2025 at 09:08 PM ESTSign off status: Pending * Provider: Katia Lopez Date: 08/06/2024 Generated for Printing/Faxing/eTransmitting on:?07/25/2025 09:08 PM EST
--- OUTSIDE RECORDS SUMMARY | 2025-07-18 11:00 | XMS_ITS ---
Author Organization [facility] vices Address [address], [place] [id number] Care Team Providers Care Receiving Team Member Name Role Phone Eros Lopez Primary Care Provider [phone] Allergies Allergen (clinical drug ingredient) Drug/Non Drug Allergy documented on EMR Reaction Allergy Type Onset Date Status gabapentin Neurontin Unknown Drug Allergy Active REASON FOR VISIT ER f/u 07/13 [facility] Heart Rhythm Medications Medication SIG (Take, Route, Frequency, Duration) Notes Start Date End Date Status Allergy Relief 10 MG Tablet Oral; Duration: 30 D ays ActiveVitamin D 50 MCG (1999 UT) Tablet1 tablet Orally Once a day; Duration: 30 day(s)5ActiveFamotidine 20 MG Tablet1 tablet at bedtime as needed Oral twice a day; Duration: 30 daysActiveLevothyroxine Sodium 25 MCG Tablet1 tablet in the morning on an empty stomach Oral daily; Duration: 30 daysActive Atorvastatin Calcium 10 mg TabletTAKE 1 TABLET BY MOUTH ONCE DAILY; Duration: 30 ActiveVitamin B-12 2500 MCG Tablet Sublingualas directed Zumaydtmtf71/14/2025 ActiveAcetaminophen ER 650 MG Tablet Extended Release2 tablets as needed Orally twice a dayActiveIbuprofen 200 MG Capsule1 tablet with food or milk as needed Orally twice a dayActive Social History Sex Assigned At : Social History Observation Description Sex Assigned At Female Social History Social DeterminantsSocial InfoQuestionAnswerNotesPRAPAREDate Completed/Updated: 07/18/2025What is your current housing situation?I have housingAre you worried about losing your housing?NoWhat is the highest level of school that you have finished?More than 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 Check all that applyI do not have problems meeting my needsHas lack of transportation kept you from medical appointments, meetings, work or from getting things needed for daily living?No How often do you see or talk to people that you care about and feel close to? (For example: talkingto friends on the phone, visiting friends or family, going to cheondoism or club meetings)More than 5 times a weekHow stressed are you? Stress is when someone feels tense, nervous, anxious, or can't sleep at nightbecause their mind is troubledSomewhatIn the past year have you spent more than 2 nights in a row in a long term, fpc, chcf center, orjuvenile correctional facility? NoAre you a refugee?NoWhat country are you from?[place] you feel physically and emotionally safe where you currently live?YesIn the past year, have you been afraid of your partner or ex-partner?NoPRAPARE Score:2Sexual History:Social InfoQuestionAnswerNotesFamily PlanningAre you or your partner planning on becoming in the next year if not already ?No? What type of contraception are you using?Female SterilizationPCMH and UDS DemographicsSocial InfoQuestionAnswerNotesPrimary Care Medical Home QuestionsDo you have any barriers to learning?NoneWhat is your preferred method of learning? Watching a videoHow often do you need to have someone help you read instructions?Never Problems Problem Type SNOMED Code ICD Code Onset Dates Problem Status W/U Status Risk Notes Problem Supraventricular arrhythmia (726 59634) Supraventricular arrhythmia (I49.9) ActiveconfirmedProblemHyperlipidemia (42374858)Hyperlipidemia (E78.5)Active confirmedProblemHypothyroidism (92102788)Hypothyroidism (E03.9)Activeconfirmed ProblemDepression (459866633)Depression (F32.9)Activeconfirmed Vital Signs Temperature 97.4 degrees Fahrenheit 07/18/20 25 Blood pressure systolic 119 mm Hg 07/18/20 25 Blood pressure diastolic 86 mm Hg Heart Rate 78 /min 07/18/2025 Respiratory Rate 16 /min 07/18/2025 Height 68 in 07/18/2025 Weight 274.2 lbs 07/18/2025 BMI 41.69 kg/m2 07/18/2025 Oximetry 98 % 07/18/2025 Height-cm 172.72 cm 07/18/2025 Weight-kg 124.38 kg 07/18/2025 Margareth Wolff 07/18/2025 0 4:15:48 PM EST > Encounters Encounter Location Date Provider Diagnosis Main [address] [place], [place] [id number] 07/18/2025 Eros Purcellnick SVT (supraventricula r tachycardia) I47.10 Assessments Encounter Date Diagnosis (ICD Code) Assessment Notes Treatment Notes Treatment Clinical Notes Section Notes 07/18/2025 SVT (supraventricular tachycardi a) (ICD-10 - I47.10) at this time i have asked the patient to determine who is in her insurance network i will refer there at that time encouraged to reestart atenlol however she declined at this time pt will go to the Er with any new or worsening symptoms of but not limited to chest pain, shortnessof breath, blurry vision, or headaches will follow in 2 weeks Plan Of Treatment Treatment Notes Assessment Notes SVT (supraventricular tachycardia) at this time i have asked the patient to determine who is in her insurance network i will refer there at that time encouraged to reestart atenlol however she declined at this time pt will go to the Er with any new or worsening symptoms of but not limited to chest pain, shortness of breath, blurry vision, or headaches will follow in 2 weeks Next Appt Details Follow Up: 2 Weeks, Reason: SVT Provider Name:Eros oLpez, 08/01/2025 11:15:00 AM, [address], [place], [id number], History and Physical Notes * HPI (History of Present Illness) CategorySub-CategoryDetailNotesCategory NotesInterim History Pt presents for ER follow up was seen in [facility] for a bout of SVT she was treated with adenosine states that she waited 3 hours before going to the ER has a long history of SVT and previously seen cardiology however they are no longer in her network previously was taking atenolol but has stopped taking this on her own because she was having low HRwhile sleeping denies any chest pain, palpations since the ER visit Examination CategorySub-CategoryDetailNotesCategory NotesGeneral ExaminationGeneral appearance:alert, pleasant, well-nourished and in no acute distressHead: normocephalic, atraumaticThroat:clearHeart:regular rate and rhythm without murmurs, gallops, clicks or rubsLungs:clear to auscultation bilaterally, with good air movement and no rales, rhonchi or wheezesAbdomen:soft with good bowel sounds, nontender, and no masses or hepatosplenomegalyExtremities:normal extremity with no clubbing, cyanosis or edemaPsych:alert and oriented x 3CQM ExceptionsCurrently taking Aspirin:Aspirin Use:: No Progress Notes * Galen LOZAOB:1975 (50 yo F)Acc No.[id number]:07/18/2025 Medical Note Patient: Dago Dennyime :?Eros StuddDOB:1975???Age:50 Y???Sex: FemaleDate:07/18/2025Phone:[phone]:Simona Daphne [address] [place], [id number] In:03:56 PM EST Subjective: * Chief Complaints: * E R f/u 07/13 [facility] Heart Rhythm * HPI: ???Interim History:?Pt presents for ER follow up was seen in [facility] for a bout of SVT she was treated with adenosine states that she waited 3 hours before going to the ER has a long history of SVT and previously seen cardiology however they are no longer in her network previously was taking atenolol but has stopped taking this on her own because she was having low HRwhile sleeping denies any chest pain, palpations since the ER visit. * ROS: ???Negative except mentioned above in the HPI. * Medical History: Supraventricular arrhythmia Hyperlipidemia Hypothyroidism Depression Medical History Verified? * Surgical History: hysterectomy including cervix, one ovary left ? appendectomy ? two cardiac ablasions ? discectomy ? Surgical History verified.? * Hospitalization/Major Diagno stic Procedure: see above ? Hospitalization Verified.? * Family History: F ather: , diagnosed with Cancer. M other: . P aternal Grand Father: unknown. P aternal Grand Mother: unknown. M aternal Grand Father: unknown. M aternal Grand Mother: unknown. B rother: alive, diagnosed with Hypertension. S ister: alive, diagnosed with Diabetes. S on(s): alive, diagnosed with Mental Illness. D eduardoer(s): alive, diagnosed with Mental Illness. 3 brother(s) , 1 sister(s) . 1 son(s) , 1 daughter(s) . . F amily History Verified.. son/daughter-svts. * Social History: ???[facility] and S Demographics:?Primary Care Medical Home Questions?Do you have any barriers to learning??None ?What is your preferred method of learning? Watching a video ?How often do you need to have someone help you read instructions??Never ???Sexual History:?Family Planning?Are you or your partner planning on becoming in the next year if not already ??No ?What type of contraception are you using? Female Sterilization ???Social Determinants:?PRAPARE?Date Completed/Updated:?07/18/2025 ?What is your current housing situation??I have housing ?Are you worried about losing your housing? 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 Check all that a pply?I do not have problems meeting my needs ?Has lack of transportation kept you from medical appointments, meetings, work or from getting things needed for daily living??No ?How often do you see or talk to people that you care about and feel close to? (For example: talking to friends on the phone, visiting friends or f amily, going to cheondoism or club meetings)?More than 5 times a week ?How stressed are you? Stress is when someone feels tense, nervous, anxious, or can't sleep at night because their mind is troubled?Somewhat ?In the past year have you spent more than 2 nights in a row in a long term, fpc, chcf center, or juvenile correctional facility??No ?Are you a refugee??No ?What country are you from??[place] ?Do you feel physically and emotionally safe where you currently live?? Yes ?In the past year, have you been afraid of your partner or ex-partner?? No ?PRAPARE Score:?2 ???Social History Verified. * Medications: T akingIbuprofen 200 MG Capsule 1 tablet with food or milk as needed Orally twice a day Acetaminophen ER 650 MG Tablet Extended Release 2 tablets as needed Orally twice a day Vitamin D 50 MCG (2000 UT) Tablet 1 tablet Orally Once a day Vitamin B-12 2500 MCG Tablet Sublingual as directed Sublingual Atorvastatin Calcium 10 mg Tablet TAKE 1 TABLET BY MOUTH ONCE DAILY Levothyroxine Sodium 25 MCG Tablet 1 tablet in the morning on an empty stomach Oral daily Famotidine 20 MG Tablet 1 tablet at bedtime as needed Oral twice a day Allergy Relief 10 MG Tablet Oral Taking Ibuprofen 200 MG Capsule 1 tablet with food or milk as needed Orally twice a day Taking Acetaminophen ER 650 MG Tablet Extended Release 2 tablets as needed Orally twice a day Taking Vitamin D 50 MCG (2000 UT) Tablet 1 tablet Orally Once a day Taking Vitamin B-12 2500 MCG Tablet Sublingual as directed Sublingual Taking Atorvastatin Calcium 10 mg Tablet TAKE 1 TABLET BY MOUTH ONCE DAILY Taking Levothyroxine Sodium 25 MCG Tablet 1 tablet in the morning on an empty stomach Oral daily Taking Famotidine 20 MG Tablet 1 tablet at bedtime as needed Oral twice a day Taking Allergy Relief 10 MG Tablet Oral DiscontinuedCranberry 250 MG Capsule as directed Orally Ezetimibe 10 MG Tablet 1 tablet Orally Once a day Sulfamethoxazole-Trimethoprim 800-160 MG Tablet 1 tablet Orally twice daily Atenolol 25 MG Tablet 1 tablet Oral Once a day Medication List reviewed and reconciled with the patientDiscontinued Cranberry 250 MG Capsule as directed Orally Discontinued Ezetimibe 10 MG Tablet 1 tablet Orally Once a day Discontinued Sulfamethoxazole-Trimethoprim 800-160 MG Tablet 1 tablet Orally twice daily Discontinued Atenolol 25 MG Tablet 1 tablet Oral Once a day Medication List reviewed and reconciled with the patient * Allergies: N eurontinyesAllergies Verified. Objective: * Vitals: T emp:97.4F, Wt:274.2lbs, Ht: 68 in, BMI:41.69Index, BP:119/86mm Hg, HR:78/min, RR:16/min, Pain scale:01-10, Oxygen sat %:98%, Wt-k.38 kg, Ht-cm: 172.72 cm, Body Surface Area: 2.44. Margareth Wolff 07/18/2025 04:15:48 PM EST >. * Examination: ???CQM Exceptions: ?Currently taking Aspirin:? Aspirin Use:?No?General Examination: ?General appearance:?alert, pleasant, well-nourished and inno acute distress.?Head:?normocephalic, atraumatic.?Throat:?clear.?Heart:?regular rate and rhythm without murmurs, gallops, clicks or rubs.?Lungs:?clear to auscultation bilaterally, with good air movement and no rales, rhonchi or wheezes.?Abdomen:?soft with good bowel sounds, nontender, and no masses or hepatosplenomegaly.?Extremities:?normal extremity with no clubbing, cyanosis or edema.?Psych:?alert and oriented x 3.? Assessment: * Assessment: 1.?SVT (supraventricular tachycardia) - I47.10 (Primary)??? Plan: * Treatment: Notes: at this time i have asked the patient to determine who is in her insurance network i will refer there at that time? encouraged to reestart atenlol however she declined at this time pt will go to the Er with any new or worsening symptoms of but not limited to chest pain, shortnessof breath, blurry vision, or headaches? will follow in 2 weeks?? * Procedure Codes: 3 079F HTN DIAST BP = [id number] HTN SYST BP < 130 * Follow Up: 2 Weeks (Reason: SVT) Billing Information: * Visit Code: 71329 Office Visit Est 20-29 minutes. * Procedure Codes: 3079F HTN DIAST BP = 80-89. 3074F HTN SYST BP < 130. * ign off status: Completed true * Provider: Katia Lopez Date: 1 09/18/2024 Generated for Printing/Faxing/eTransmitting on:?07/25/2025 09:08 PM EST
[2025-07-25] VITALS (13 sets, daily range): BP systolic 113–116; BP diastolic 81–97; PULSE 82–178; TEMP 36.8; O2SAT 96–100; BMI 40.9
--- NOTE | 2025-07-25 20:48 | ECG_ITS ---
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 Measurements Intervals [place] Rate: 174 P: -91093 [place]: -94143 QRS: 79 QRSD: 74 T: 53 QT: 262 QTc: 355 Interpretive Statements SUPRAVENTRICULAR TACHYCARDIA [address] depression 8102 Low QRS voltage in chest leads 9150 abnormal ECG Compared to ECG 07/14/2025 03:30:00 ST (T wave) deviation now present Sinus rhythm no longer present Electronically Signed On 07-27-2025 11:28:31 EST by DONALDO SIMPSON M.D.
--- NOTE | 2025-07-25 20:48 | ED.GENADUL1 ---
HPI HPI - General Adult General Chief complaint: Arrhythmia/Palpitations Stated complaint: Arrhythmia Time Seen by Provider: 07/25/25 20:47 Source: patient and family () Mode of arrival: walk-in History of Present Illness HPI narrative: 50-year-old female presents to the emergency department with with complaint of being in SVT. Has chronic history of this. Has been treated with ablation and beta-ramiro in the past. Last episode was 2 weeks ago. States that they had taken her off of the beta-ramiro due to bradycardia. Patient complaints of mild chest discomfort, lightheadedness, shortness of breath. States she attempted vagal maneuvers including breathing through a straw at home without success. Has had success in vagal maneuvers in the past. Quality:?as above Severity:?moderate Timing:?as above, constant Context: Normal setting and activity? Modifying factors:?as above Associated symptoms: as above Related Data Home Medications ?Medication ?Instructions ?Recorded ?Confirmed atenolol 50 mg tablet 50 mg PO Q24H 10/04/23 10/04/23 cholecalciferol (vitamin D3) 125 10,000 unit PO DAILY 10/04/23 10/04/23 mcg (5,000 unit) capsule famotidine 20 mg tablet 20 mg PO Q12H 10/04/23 10/04/23 levothyroxine 25 mcg tablet 25 mcg PO DAILY 10/04/23 10/04/23 loratadine 10 mg tablet (Claritin) 10 mg PO DAILY 10/04/23 10/04/23 Previous Rx's ?Medication ?Instructions ?Recorded dicyclomine 20 mg tablet 20 mg PO TID PRN abdominal pain #7 10/04/23 tabs ondansetron 4 mg disintegrating 4 mg PO Q4H PRN nausea and 10/04/23 tablet vomiting 3 days #6 tabs Allergies Allergy/AdvReac Type Severity Reaction Status Date / Time gabapentin (From Neurontin) Allergy Intermediate Swelling Verified 07/14/25 03:14 of Lip/Tongue/Throat Opioid HPI Opioid Management Most Recent Opioid Data: Last Pain Scale 7 Today, 20:39 Review of Systems ROS Narrative CONST: Denies fever, chills RESP: + mild shortness of breath. CV: + mild chest pain, palpitations GI: Denies abd pain, nausea, vomiting : Denies dysuria, flank pain MS: Denies back pain, myalgias SKIN: Denies color change, rash NEURO: + lightheadedness. Denies numbness, weakness PSYCHIATRIC: Denies confusion, agitation PFSH PFSH Social History Smoking status: Former smoker Little interest or pleasure in doing things: not at all Feeling down, depressed, or hopeless: not at all Exam Narrative Exam Narrative: Vital signs reviewed Nurses notes noted CONST: Nontoxic, well appearing, well nourished, in no distress.? No diaphoresis.?? HENT: normocephalic, atraumatic, moist mucous membrane, no abnormalities of the nose noted, hearing normal EYES: normal appearing conjunctiva, no apparent discharge bilat NECK: normal appearance CV: tachycardia, regular rhythm, no murmur RESP: normal effort, speaking in complete sentences. Lung sounds clear and equal bilat.? No wheezes, rales, rhonchi GI: soft, no distension, nontender MS: no edema, tenderness SKIN: no pallor NEURO: A&Ox 3, no focal findings PSYCH: normal mood, affect Constitutional Vital Signs, click to edit/add: Last Vital Signs Temp 98.2 F 07/25/25 20:39 Pulse 90 07/25/25 21:00 Resp 15 07/25/25 21:00 BP 116/81 07/25/25 21:00 Pulse Ox 99 07/25/25 21:00 O2 Del Method Room Air 07/25/25 20:39 Course Reevaluation(s) Reevaluation #1: Asymptomatic. Discussed with patient results, plan, and disposition. Discussed with patient starting her up on a beta-ramiro. Patient states she had been on 12-1/2 mg and she was still getting bradycardic. Advised her to contact her management psychologist tomorrow with regards to this. Patient agreeable with plan. Time: 22:14 Vital Signs Vital signs: Vital Signs Temperature 98.2 F 07/25/25 20:39 Pulse Rate 175 H 07/25/25 20:39 Respiratory Rate 20 07/25/25 20:39 Blood Pressure 113/97 H 07/25/25 20:39 Pulse Oximetry 100 07/25/25 20:39 Oxygen Delivery Method Room Air 07/25/25 20:39 Temperature 98.2 F 07/25/25 20:39 Pulse Rate 90 07/25/25 21:00 Respiratory Rate 15 07/25/25 21:00 Blood Pressure 116/81 07/25/25 21:00 Pulse Oximetry 99 07/25/25 21:00 Oxygen Delivery Method Room Air 07/25/25 20:39 Medical Decision Making MDM Narrative Medical decision making narrative: This is a pleasant 50-year-old female who presents to the emergency department for evaluation of SVT On arrival, afebrile, vital signs are stable Exam, nontoxic, well appearing patient in no distress. Patient is tachycardic, regular rate and rhythm. Lung sounds clear and equal bilaterally. Patient placed on monitor. Twelve-lead EKG showing patient to be in SVT. Vagal maneuvers attempted including pushing with her abdomen and blowing through a straw. Both were unsuccessful. IV was established in right AC by nursing. Pacer patches were placed. She was then administered 6 mg of adenosine. After pause, patient converted back to sinus rhythm. Was initially tachycardic, but this improved to below 100. She remained asymptomatic stable the remainder of ED course. Labs obtained and sent to the lab. Labs revealed no leukocytosis, anemia, thrombocytopenia, electrolyte imbalance, renal impairment. Glucose 100. LFTs unremarkable. Magnesium 2.2. Favor SVT Electrolyte imbalance less likely based on lab testing A-fib less likely based on monitoring, EKG, patient history History and Record Review Discussion with independent historian: Additional Tests and Interventions ECG: SVT with conversion to normal sinus rhythm IV Fluids:hydration/inability to tolerate PO Disposition ? The patient was discharged. Plan: Patient will be discharged to home .? Condition at time of disposition: stable, improved.? Advised to follow up with her management psychologist. Advised to return for any worsening and/or development of new, concerning signs or symptoms Admission considered, but patient converted Prescription medication considered but not given:beta ramiro. See ED course PLEASE NOTE: Portions of the medical record may have been produced using electronic charge account clerk and may contain errors with respect to translation of words which may not have been identified prior to finalization of the chart. Lab Data Lab results reviewed: Yes I reviewed the patient's lab results Labs: Lab Results 07/25/25 Range/Units 20:50 WBC 9.1 (4.0-11.0) 10^3/uL RBC 4.51 (4.20-5.40) 10^6/uL Hgb 14.6 (12.0-16.0) g/dL Hct 43.1 (36.0-48.0) % MCV 95.6 (81.0-99.0) fL MCH 32.4 (26.7-34.0) pg MCHC 33.9 (29.9-35.2) g/dL RDW 11.0 (11.0-15.0) % Plt Count 266 (150-450) 10^3/uL MPV 11.4 (9.5-13.5) fL Neut % (Auto) 45.9 (43.0-75.0) % Lymph % (Auto) 44.7 (20.5-60.0) % Warrick % (Auto) 6.5 (1.7-12.0) % Eos % (Auto) 2.3 (0.9-7.0) % Baso % (Auto) 0.4 (0.2-2.0) % Neut # (Auto) 4.2 (1.4-6.5) 10^3/uL Lymph # (Auto) 4.1 H (1.2-3.8) 10^3/uL Warrick # (Auto) 0.6 (0.3-0.8) 10^3/uL Eos # (Auto) 0.2 (0.0-0.7) 10^3/uL Baso # (Auto) 0.0 (0.0-0.1) 10^3/uL Abs Immat Gran (auto) 0.02 (0.00-0.03) 10^3/uL Imm/Tot Granulo (auto) 0.2 (0.0-0.5) % Sodium 144 (136-145) mmol/L Potassium 3.8 (3.5-5.1) mmol/L Chloride 106 (98-107) mmol/L Carbon Dioxide 30.2 (21.0-32.0) mmol/L Anion Gap 11.6 BUN 19.0 H (7.0-18.0) mg/dL Creatinine 0.95 (0.55-1.02) mg/dL Est GFR ( Amer) >60 (>=60 mL/min/1.73m^2) Est GFR (Non-Af Amer) >60 (>=60 mL/min/1.73m^2) BUN/Creatinine Ratio 20.0 Glucose 100 (74-106) mg/dL Calcium 9.0 (8.5-10.1) mg/dL Magnesium 2.2 (1.8-2.4) mg/dL Total Bilirubin 0.4 (0.2-1.0) mg/dL AST 14 L (15-37) U/L ALT 30 (14-59) U/L Alkaline Phosphatase 81 (46-116) U/L Total Protein 7.3 (6.4-8.2) g/dL Albumin 3.8 (3.4-5.0) g/dL Globulin 3.5 g/dL Albumin/Globulin Ratio 1.1 Lipase 46.0 (16.0-77.0) U/L ECG Data Attestation: I personally reviewed and interpreted this ECG as follows: (Initial EKG performed at 2047 showed SVT at 174 bpm. No other acute changes noted. Repeat EKG showed patient to be in sinus rhythm.) Discharge Plan Discharge Chief Complaint: Arrhythmia/Palpitations Clinical Impression: SVT (supraventricular tachycardia) Dyspnea Qualifiers: Dyspnea type: unspecified Qualified Code(s): R06.00 - Dyspnea, unspecified Patient Disposition: Home, Self-Care Time of Disposition Decision: 22:11 Condition: Good Mode of Transportation: Private Vehicle Prescriptions / Home Meds: No Action atenolol 50 mg tablet 50 mg PO Q24H cholecalciferol (vitamin D3) 125 mcg (5,000 unit) capsule 10,000 unit PO DAILY famotidine 20 mg tablet 20 mg PO Q12H levothyroxine 25 mcg tablet 25 mcg PO DAILY loratadine [Claritin] 10 mg tablet 10 mg PO DAILY dicyclomine 20 mg tablet 20 mg PO TID PRN (Reason: abdominal pain) Qty: 7 0RF ondansetron 4 mg tablet,disintegrating 4 mg PO Q4H PRN (Reason: nausea and vomiting) 3 Days Qty: 6 0RF Print Language: Yoruba Instructions: Supraventricular Tachycardia (ED) Referrals: ENRRIQUE BARRIOS [Physician, Family Practice] - 1 week
--- NOTE | 2025-07-25 20:57 | ECG_ITS ---
[facility] Test Date: 2025-07-25 Pat Name: ESME ERICKSON Department: Room: - Gender: Female Jigman: : 1975 Requested By: [id number] Order Number: [id number] Reading MD: DONALDO SIMPSON M.D. Measurements Intervals [place] Rate: 108 P: 55 MA: 162 QRS: 44 QRSD: 76 T: 44 QT: 322 QTc: 385 Interpretive Statements 1120 Sinus tachycardia 8102 Low QRS voltage in chest leads 9140 abnormal rhythm ECG Compared to ECG 07/25/2025 20:48:06 ST (T wave) deviation no longer present Sinus rhythm has replaced supraventricular tachycardia Electronically Signed On 07-27-2025 11:29:15 EST by DONALDO SIMPSON M.D.
[2025-07-25] MEDS: ADENOSINE 6 MG/2 ML VIAL IVP (21:03)
[2025-07-25 21:06] LABS: Hematocrit 43.1 % (36.0-48.0); Hemoglobin 14.6 g/dL (12.0-16.0); Immature Granulocytes Abs Auto 0.02 10^3/uL (0.00-0.03); Immature Granulocytes Pct Auto 0.2 % (0.0-0.5); Lymphocytes Absolute Auto 4.1 10^3/uL (1.2-3.8); Mean Corpuscular HGB Conc 33.9 g/dL (29.9-35.2); Mean Corpuscular Hemoglobin 32.4 pg (26.7-34.0); Mean Corpuscular Volume 95.6 fL (81.0-99.0); Platelet Count 266 10^3/uL (150-450); Red Blood Count 4.51 10^6/uL (4.20-5.40); White Blood Count 9.1 10^3/uL (4.0-11.0)
--- OUTSIDE RECORDS SUMMARY | 2025-07-25 21:08 | XMS_ITS | Patient Health Record ---
Author Organization [facility] Address [address], [place] [address] Care Team Providers Care Home Designer Name Role Phone Eros Lopez Primary Care Provider Peyton Grady Unavailable [phone] Allergies Allergen (clinical drug ingredient) Drug/Non Drug Allergy documented on EMR Reaction Allergy Type Onset Date Status gabapentin Neurontin Unknown Drug Allergy Active Results Component Value Reference Range Flag Notes US renal BI Reviewed date:03/26/2025 05:35:44 PM Interpretation: Performing Lab: Notes/Report: Source Facility: [place] [address] Ultrasound Report Signed Patient: ESME LOZA MR#: [id number] : 1975 Acct:[id number] Age/Sex: 50 / F ADM Date: 03/24/25 Loc: US Attending Dr: Peyton Grady COMPONENT DESIGN ENGINEER Ordering Physician: Peyton Grady NP Date of Service: 03/24/25 Procedure(s): US renal BI Accession Number(s): [id number] cc: ENRRIQUE BARRIOS Alyssa NP [place] [id number] Patient Name: ESME LOZA MRN: [id number] date: 1975 Sex: F Assigned Patient Location: US Current Patient Location: US Accession/Order Number: [id number] Exam Date: 03/24/2025 12:48 Report Date: 03/24/2025 [...] Morillo M.D. 03/24/2025 12:48 PM Dictation Location: [place] [address] Electronically authenticated by: [id number] Y Date: 03/24/2025 12:48 Dictated By: Brooks Morillo D.O. Signed By: 03/24/25 1251 DD/ 1248 TD/TT: Electronic Security Technician: LIPID PANEL WITH REFLEX TO D IRECT LDL Reviewed date:11/16/2024 01:34:21 PM Interpretation: Performing Lab: Notes/Report: CHOLESTEROL 271 100-199 mg/dL H FQXWSFWKKZNOL30443-498 mg/dLHVLDL-CHOL, RTGFEGCOEN35<30 mg/dLHHDL-CHOL54>=50 mg/dLLDL-CHOL, FUQEBABHFY364<130 mg/dLH ADULT LDL CHOLESTEROL CLASSIFICATION <100mg/dL Optimal [...] risk <7.1 <5.6 high risk >7.1 >5.6 CHOL/HDL5.02.0-4.5HTSH + FREE T4 PROFILE Reviewed date:11/16/2024 01:38:58 PM Interpretation: Performing Lab: Notes/Report:TSH2.450.270-4.200 uIU/mL The [employer] Thyroid Association (RUBIA) recommends the following reference ranges for TSH levels during : First trimester: 0.1 to 2.5 mIU/L Second trimester: 0.2 to 3.0 mIU/L Third trimester: 0.3 to 3.0 mIU/L FREE T41.130.80-1.90 ng/dLVITAMIN B12 Reviewed date:11/16/2024 01:38:41 PM Interpretation: Performing Lab: Notes/Report:VITAMIN B12>6493002-3751 pg/mLH It has been reported that between 5 and 10% of patients with values between 200 and 400 pg/ml may experience neuropsychiatric and hematologic abnormalities due to occult B12 deficiency. Less than 1% of patients with values above 400 pg/ml will have symptoms. VITAMIN D 25 HYDROXY Reviewed date:11/16/2024 01:38:48 PM Interpretation: Performing Lab: Notes/Report:VITAMIN D, 25 TMIRFCF20.830.0-100.0 ng/mL 25-OH VITAMIN D INTERPRETATION Deficiency.... <20.0 ng/ml Insufficiency..20.0-29.0 ng/ml Sufficiency....30.0-100.0 ng/ml Possible Toxicity...>150 ng/ml Urine Dip Reviewed date:11/15/2024 04:27:14 PM Interpretation: Performing Lab: Notes/Report: Bilirubin-Occult Blood-Glucose+-Ketones-WBC+-Nitrite-Ph6.0Protein+-Specific Gravity1.030ColororangeAppearanceclearCOMPREHENSIVE METABOLIC PANEL (AMA) Reviewed date:11/16/2024 01:38:54 PM Interpretation: Performing Lab: Notes/Report:KOXXMPA2497-417 mg/tYIWBPOX326787-165 mmol/LPOTASSIUM4.33.5-5.4 mmol/IOQIVAJKJ57250-519 mmol/ITA93091-12 mmol/RALP042-42 mg/dLCREATININE, BLOOD 0.920.51-1.15 mg/dLeGFR (2020 CKD-EPI)77>59 mL/min/1.35c9JJFJEXR0.68.6-10.5 mg/Crystal. PROTEIN7.36.0-8.3 g/dLALBUMIN4.93.5-5.2 g/dLGLOBULIN2.41.8-3.8 g/dLA/G RATIO2.01.0-2.5 RATIOALK EAOD7212-444 U/IYFS-GYFI461-85 U/LQAG-BIQO843-85 U/LT. BILIRUBIN0.6<1.3 mg/dL URINALYSIS COMPLETE, RFLX CULTURE Reviewed date:11/16/2024 12:03:39 PM Interpretation: Performing Lab: Notes/Report:PH5.55.0-8.0SP GRAVITY1.0291.005-1.030APPEARANCETURBIDCLEARACOLOR YELLOWYELLOWPROTEINNEGATIVENEGATIVEGLUCOSENEGATIVENEGATIVEKETONESNEGATIVE NEGATIVEBILIRUBINNEGATIVENEGATIVEOCCULT BLOODNEGATIVENEGATIVELEUKO ESTERNEGATIVE NEGATIVENITRITENEGATIVENEGATIVEUROBILINOGEN0.2<2 mg/dLWBC0-50-5 LDAWNR9-97-9 HPF EPI CELL0-2NONE HPFBACTERIANONENONEHYALINE CASTSNONENONE LPF UNLESS OTHERWISE INDICATED, ALL TESTING PERFORMED AT: [employer] [address] [place] [address] OPERATIONS RESEARCH ANALYST: KAVON ECHOLS M.D. CLIA NUMBER [id number] CAP ACCREDITATION AUID [id number] UDS Colonoscopy Reviewed date:03/04/2025 10:54:32 AM Interpretation: Performing Lab: Notes/Report: Urine Dip Reviewed date:03/16/2025 04:36:54 PM Interpretation: Performing Lab: Notes/Report: BilirubinnegOccult BloodnegGlucosenegKetonesnegWBCnegNitritenegPh6.0Proteinneg Specific Gravity1.025ColoryellowAppearanceclearCBC W/AUTO DIFF Reviewed date:11/16/2024 01:33:56 PM Interpretation: Performing Lab: Notes/Report:WBC7.83.6-11.0 THDS/CMMRBC4.453.80-5.20 MILL/YISRKC32.511.9-16.0 G/DLHCT42.535-47 %ZMZ0401-594 fLMCH32.626.0-33.0 baOMAF00.132.0-35.0 g/dlRDW11.6 11.2-14.8 %TRVJSTXS055870-273 THOUS/RQTKBSBVGBFGHA19.545-75 %YCJEBHWYTFLS18.920- 45 %MONOCYTES6.50-13 %EOSINOPHILS3.60-5 %BASOPHILS0.60-2 %IMMATURE GRAN0.90-2 % ABS NEUTROPHILS3.391.9-8.0 K/uLABS LYMPHOCYTES3.510.9-5.2 K/uLABS MONOCYTES0.51 0.1-1.0 K/uLABS EOSINOPHILS0.280.0-0.80 K/uLABS BASOPHILS0.050.0-0.2 K/uLABS IMMATURE GRAN0.070.00-0.06 K/uLHHEMOGLOBIN A1C Reviewed date:11/16/2024 01:34:00 PM Interpretation: Performing Lab: Notes/Report:HEMOGLOBIN A1C5.3<5.7 % Prediabetes: 5.7% to 6.4% Diabetes: >6.4% Glycemic control for adults with diabetes: <7.0% Use with caution in patients with abnormal hemoglobin variants as the half-life of red blood cells and in vivo glycation rates are affected. AVERAGE WHOLE BLOOD MRRISKD617<126 mg/dl UNLESS OTHERWISE INDICATED, ALL TESTING PERFORMED AT: [facility] [address] [place] [address] OPERATIONS RESEARCH ANALYST: KAVON ECHOLS M.D. CLIA NUMBER [id number] CAP ACCREDITATION AUID [id number] LIPID PANEL WITH REFLEX TO DIRECT LDL Reviewed date:03/04/2025 07:54:14 AM Interpretation: Performing Lab: Notes/Report:WEAFFLUREZV882657-098 mg/eOJFGSSVOBDEBGJZ97627-582 mg/dLHVLDL-CHOL, IDZNVGRDJR58<30 mg/dLHHDL-CHOL46>=50 mg/dLLLDL-CHOL, WQLXQFRZGX075<130 mg/dLH Direct LDL is recommended for patients [...] risk <7.1 <5.6 high risk >7.1 >5.6 CHOL/HDL5.12.0-4.5HHIV-1 2 COMBO AG/AB Reviewed date:03/04/2025 07:54:21 AM Interpretation: Performing Lab: Notes/Report: Negative for HIV-1 antigen and HIV-1/HIV-2 antibodies. No laboratory evidence of HIV infection. Does not exclude the possibility of exposure to or infection with HIV-1 and/or HIV-2 that are below the limit of detection of this assay. UNLESS OTHERWISE INDICATED, ALL TESTING PERFORMED AT: [facility]. [address] [place] [address] OPERATIONS RESEARCH ANALYST: KAVON ECHOLS M.D. CLIA NUMBER [id number] CAP ACCREDITATION AUID [id number]-2,[id number] COMBO AG/AB NonreactiveNonreactiveHIV-1 p24 AgNonreactiveNonreactiveHIV-1/HIV-2 Abs NonreactiveNonreactiveTSH + FREE T4 PROFILE Reviewed date:06/09/2025 08:00:47 AM Interpretation: Performing Lab: Notes/Report:TSH1.090.270-4.200 uIU/mL The [place] Thyroid Association (RUBIA) recommends the following reference ranges for TSH levels during : First trimester: 0.1 to 2.5 mIU/L Second trimester: 0.2 to 3.0 mIU/L Third trimester: 0.3 to 3.0 mIU/L FREE T41.220.80-1.90 ng/dL UNLESS OTHERWISE INDICATED, ALL TESTING PERFORMED AT: [facility]. [address] [place] [address] OPERATIONS RESEARCH ANALYST: KAVON ECHOLS M.D. CLIA NUMBER [id number] CAP ACCREDITATION AUID [id number] Reason For Referral Reason recurrent UTIs Diagnosis 1 Recurrent UTI (N39.0 ) Referral Organization Main Referring Provider First Name Eros Referring Provider Last Name John Referring Provider Speciality Physician Allergist/Pediatric Pulmonologist Referred Provider Executive Urology [facility] Referred Provider Specialty Urology General [...] Duration) Notes Start Date End Date Status Vitamin D 50 MCG (1999) Tablet 1 tabl et Orally Once a day; Duration: 30 day(s) 5ActiveAcetaminophen ER 650 MG Tablet Extended Release2 tablets as needed Orally twice a dayActiveIbuprofen 200 MG Capsule1 tablet with food or milk as needed Orally twice a dayActiveAllergy Relief 10 MG TabletOral; Duration: 30 DaysActiveAtorvastatin Calcium 10 mg TabletTAKE 1 TABLET BY MOUTH ONCE DAILY; Duration: 90 daysActiveFamotidine 20 MG Tablet1 tablet at bedtime as needed Oral twice a day; Duration: 90 daysActiveLevothyroxine Sodium 25 MCG Tablet1 tablet in the morning on an empty stomach Oral daily; Duration: 90 days ActiveVitamin B-12 2500 MCG Tablet Sublingualas directed Ktsmpzdarl78/14/2025 Active Social History Tobacco Use: Social History [...] than 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 Stress is when someone feels tense, nervous, anxious, or can't sleep at nightbecause their mind is troubledSomewhatIn the past year have you spent more than 2 nights in a row in a longterm, correction, correction center, orjuvenile correctional facility? NoAre you a refugee?NoWhat country are you from?[place]Do you feel physically and emotionally safe where you currently live?YesIn the past year, have you been afraid of your partner or ex-partner?NoPRAPARE Score:2Sexual History:Social InfoQuestionAnswerNotesFamily PlanningAre you or your partner planning on becoming in the next year if not already ?No? What type of contraception are you using?Female SterilizationPC and UDS DemographicsSocial InfoQuestionAnswerNotesPrimary Care Medical Home QuestionsDo you have any barriers to learning?NoneWhat is your preferred method of learning? Watching a videoHow often do you need to have someone help you read instructions?NeverDrugs/Alcohol/Caffeine:Social InfoQuestionAnswerNotesCAGE-AID Questionnaire (2018 Edition)Have you ever felt that [...] or to get rid of a hangover?NoCAGE-AID Ymnyj6MtqpufmgbetcfcZgotrnjp Tobacco Use:Social InfoQuestionAnswerNotesTobacco Control (Standard)Tobacco use: Former smoker Problems Problem Type SNOMED Code ICD Code Onset Dates Problem Status W/U Status Risk Notes Problem Mixed hyperlipidemia (285555677) Mixed hy perlipidemia (E78.2) ActiveconfirmedProblemHyperlipidemia (85090722)Hyperlipidemia (E78.5)Active confirmedProblemHypothyroidism (28382263)Hypothyroidism (E03.9)Activeconfirmed ProblemDepression (981297469)Depression (F32.9)ActiveconfirmedProblemSevere depression (053794822)Severe depression (F32.2)ActiveconfirmedProblem Hypothyroidism (15343155)Hypothyroidism, unspecified type (E03.9)Activeconfirmed ProblemSupraventricular arrhythmia (76148425)Supraventricular arrhythmia (I49.9) ActiveconfirmedProblemChronic fatigue syndrome (45261015)Chronic fatigue (R53.82)Activeconfirmed Vital Signs Heart Rate 78 /min 07/18/2025 Margareth Woflf 07/18/2025 04:15:48 PM EST > Temperature 97.4 degrees Fahrenheit 07/18/2025 Margareth Solis 07/18/2025 04:15:48 PM EST > Respiratory Rate 16 /min 07/18/2025 Jil Wolff 07/18/2025 04:15:48 PM EST > Height-cm 172.72 cm 07/18/2025 Margareth Wolff 07/18/2025 04:15:48 PM EST > Oximetry 98 % 07/18/2025 Margareth Wolff 07/18/2025 04:15:48 PM EST > Blood pressure diastolic 86 mm Hg 07/18/2025 Margareth Mays 07/18/2025 04:15:48 PM EST > Weight-kg 124.38 kg 07/18/2025 Margareth Wolff 07/18/2025 04:15:48 PM EST > Height 68 in 07/18/2025 Margareth Wolff 07/18/2025 04:15:48 PM EST > Blood pressure systolic 119 mm Hg 07/18/2025 Margareth Solis 07/18/2025 04:15:48 PM EST > Weight 274.2 lbs 07/18/2025 Margareth Wolff 07/18/2025 04:15:48 PM EST > BMI 41.69 kg/m2 07/18/2025 Margareth Wolff 07/18/2025 04:15:48 PM EST > Encounters Encounter Location Date Provider Diagnosis Main [address] [place], [place] [id number] 11/15/2024 Eros Studnick Dysuria R30.0 ; Re current UTI N39.0 ; Severe depression F32.2 ; SVT (supraventricular tachycardia) I47.10 ; Chronic fatigue R53.82 ; Screening for diabetes mellitus (DM) Z13.1 and Hypothyroidism, unspecified type E03.[address] [place], [place] [id number] 11/22/2024 Eros Studd Mixed hyperlipidem ia E78.2 ; SVT (supraventricular tachycardia) I47.10 and Hypothyroidism, unspecified type E03.[address] [place], [place] [id number] 03/03/2025 Eros Studd Hypothyroidism, un specified type E03.9 ; Mixed hyperlipidemia E78.2 ; Encounter for screening for HIV Z11.4 ; Dietary counseling Z71.3 ; Exercise counseling Z71.82 and BMI 40.0-44.9, adult Z68.41 Main [address] [place], [place] [id number] 03/16/2025 Peyton Ysabel Dysuria R30.0 ; Ki dney pain N23 ; BMI 40.0-44.9, adult Z68.41 and Morbid (severe) obesity due to excess calories E66.[address] [place], [place] [id number] 07/18/2025 Eros Studd SVT (supraventricu lar tachycardia) I47.[address] [place], [place] [id number] 12/15/2024 Eros Studd [address] [place], [place] [address]/31/2025Justin M[address] [place], [place] [address]/08/2024Justin Rfbn[address]Jono[address] [place], [place] [id number] NjfgaZvqa[address] [place], [place] [id number] 03/17/2025Justin StuddSVT (supraventricular tachycardia) I47.60Eqrx[address] [place], [place] [id number] StuddMixed hyperlipidemia E78.2Main [address] [place], [place] [id number] StuddStony Pxthv9265 [place] [facility] [address]/Justin Tfs[address]Qbqi[address] [place], [place] [id number]/Justin [address] [place], [place] [id number]/Justin MuvzgAudc[address] [place], [place] [id number] 06/21/2025Justin Kh[address]vps[address] [place], [place] [address]/Justin StuddMixed hyperlipidemia E78.2 Assessments Encounter Date Diagnosis (ICD Code) Assessment [...] lab then come to appt to discuss 07/18/2025SVT (supraventricular tachycardia) (ICD-10 - I47.10) at this time i [...] or headaches will follow in 2 weeks 07/25/2025Mixed hyperlipidemia (ICD-10 - E78.2)03/17/2025SVT (supraventricular tachycardia) (ICD-10 - I47.10)03/17/2025Mixed hyperlipidemia (ICD-10 - E78.2) 11/22/2024SVT (supraventricular tachycardia) (ICD-10 - I47.10) Will refer to cardiology once pt has a bin worker they can be seen by with their [...] UTI refer to urology for further evlaution 11/15/2024Severe depression (ICD-10 - F32.2) pt has followed [...] counseling (ICD-10 - Z71.3)03/03/2025Exercise counseling (ICD-10 - Z71.82)5BMI 40.0-44.9, adult (ICD-10 - Z68.41)11/15/2024Screening for diabetes mellitus (DM) (ICD-10 - Z13.1)11/15/2024Hypothyroidism, unspecified type (ICD-10 - E03.9) recheck thyroid follow in 1 week Plan Of Treatment Next Appt Details Provider Name:Eros Lopez, 08/01/2025 11:15:00 AM, [address], [place], [id number], Insurance Providers Payer Name Payer Address Payer Phone Subscriber Number Group Number Insured Name Patient Relationship to Insured Coverage Start Date Coverage End Date [employer] mobility [address] [address] [place] [phone] [id number] Ewa Loza - patient is the [id number] 2024 Medical (General) History Medical History History ICD Code Supraventricular arrhythmia I49.9 Hyperlipidemia E78.5 Hypothyroidism E03.9 Depression F32.9 Surgical History Surgery Date(Month/Year) hysterectomy including cervix, one ovary left appendectomytwo cardiac ablasionsdiscectomyHospitalization History Reason Date(Month/Year) see above
--- OUTSIDE RECORDS SUMMARY | 2025-07-25 21:08 | XMS_ITS | Clinical Summary ---
Author Organization [facility] tem Address [id number] [address] [place] [address] Care Team Providers Care Business Support Specialist Name Role Phone CarmelitaAsher Hitesh ACEVES Primary Care Provider [phone] Allergies Active AllergyReactionsCriticalityNoted DateCommentsGabapentinFacial Swelling 07/08/2021 Medications [...] 5Active Active Problems ProblemNoted DateDiagnosed DateVitamin B12 tuzjrxhsuq28/27/2024Morbid obesity 10/24/2022ipolar II vetvwman18/06/2023eneralized anxiety xrsllvoj52/06/2023 Post traumatic stress disorder (PTSD)10/07/2022hronic yljxpyumxedr09/27/2022 Tvofqzjn27/27/2022ubclinical abyxofkutuanli69/21/3383Nvwieohnfdinmcq43/14/2018 Vitamin D zpfnuwkdpy68/24/2017 Immunizations ImmunizationAdministration DatesNext DueHep A / Hep B1Influenza (IM) Preservative Free05/23/2015Influenza, Im Trivalent Vcdzsyzykdjk55/21/2017 Family History Medical HistoryRelationNameCommentsTuberculosisBrotherSuicide AttemptsCousinADD / ADHDDaughterAnxiety [...] friends or relatives?Never06/24/2022How often do you attend nondenominational or protestant services?1 to 4 times per year2Do you belong to any clubs or organizations such as nondenominational groups, unions, fraTweetwall or athletic groups, or school groups?No 06/24/2022How often do you attend meetings of the clubs or organizations you belong to?Never06/24/2022re you , , , , never , or living with a partner?Ayooxmf1506/24/2022UDIT-CAnswerDate RecordedQ1: How often do you have a [...] housing, medical care, and heating?Somewhat hard06/24/2022HQ-2AnswerDate RecordedTotal Rodhm645Finbear river valley hospital [place] of Occupational Health - Occupational Stress QuestionnaireAnswerDate [...] for daily living?No06/24/2022 ChildcareAnswerDate RecordedDo problems getting child day care provider make it difficult for you to [...] have received?Associate degree: occupational, technical, or vocational efbqsuc3406/24/2022CommentsNoSex and Gender InformationValue Date RecordedSex Assigned at BirthNot on fileLegal CptHppomq98/06/2015 11:25 AM EDTGender IdentityNot on fileSexual OrientationNot on file Last Filed Vital Signs Vital SignReadingTime TakenCommentsBlood Yfaaktzq205/8709/25/2024 12:20 PM EST Qeuwl8251/22/2025 12:20 PM SHSXjofnmoqeug47.3 ??C (97.4 ??F)09/25/2024 12:20 PM ESTRespiratory Rxqe026609/25/2024 12:20 PM ESTOxygen Dqmgzyerzc83%09/25/2024 12:20 PM ESTInhaled Oxygen Concentration--Bjragt567.3 kg (285 lb)09/25/2024 12:20 PM NJQFllqea750.7 cm (5' 8 )09/25/2024 12:20 PM ESTBody Mass Index43.33009/25/2024 12:20 PM EST Plan of Treatment Health MaintenanceDue DateLast DoneCommentsDTaP,Tdap and Td Vaccines (1 - Tdap) 02/05/19958963Djcqafdnv94/09/epression Cgfkdaixa71/26/91583510/28/2023 Adult BMI Follow Up PlanTobacco Wzqucjlps11/30/2025 08/02/2024dult BMI Wyhdkndvl02/22/53250809/25/20248772Aearuevcadw90/29/2029 12/01/2023, 12/01/2023Influenza IkfqwawWusgfpogbsfy17/21/2017, 05/23/2015 Medical Devices Not on file Procedures Procedure NamePriorityDate/TimeAssociated DiagnosisCommentsPROVATION COLONOSCOPY Yemyfte5612/01/2023 10:45 AM EDT MAMM SCREENING BILATERAL W GGUSfyqwuw77/09/2023 9:22 AM EDT Encounter for screening mammogram [...] 1 YR Authorizing ProviderResult TypeResult StatusLidiabrian Drake COCOA PRESS OPERATOR-FNPIMG MAMMOGRAPHY ORDERABLESFinal Result from Last 3 Months or Most Recently Relevant to Health Maintenance Insurance Care Teams Team MemberRelationshipSpecialtyStart DateEnd Date Asher Mae DO [address] [facility] [address] [facility]09/25/24
--- OUTSIDE RECORDS SUMMARY | 2025-07-25 21:08 | XMS_ITS | Clinical Summary ---
Author Organization [facility] Address [address] [place] [address] Care Team Providers Care Certified Travel Counselor Name Role Phone Eros Lopez Primary Care Provider Social History Tobacco UseTypesPacks/DayYears UsedDateSmoking Tobacco: Never Assessed CommentsUnknownSex and Gender InformationValueDate RecordedSex Assigned at Wqkhar9907/20/2025 9:42 AM ESTLegal SoeLlrmba99/17/2025 9:40 AM ESTGender Identity Fiwvgp2707/20/2025 9:42 AM ESTSexual OrientationDon't know07/20/2025 9:42 AM EST Plan of Treatment DateTypeDepartmentCare Team (Latest Contact Info)Owxlgdhknad40/17/2026 3:45 PM ESTOffice Visit [facility] [place] [address] [place] [address] Raoul Leiva MD [address] [place] [address] Health MaintenanceDue DateLast DoneCommentsCT Byyeomcctduv1976Colonoscopy 1976Colorectal Cancer Wcnypmamb1976FIT-DNA1976FIT1976 FOBT02/06/19761373Gqezreegykrpr1976Depression Gokuzhyas45/05/1988Pap Smear 02/05/1997Adult Wizgpqt3102/05/1998Cervical Cancer Kqqlvdujx11/05/2006HPV/Cotest 02/05/2006Hepatitis B Vaccines (2 of 3 - Hep B Twinrix 3-dose series)06/03/2006 05/06/20061830Jnjguymjk13/09/202506/3COVID-19 Vaccine ( season) 2025Influenza Vaccine (#1)508/, 05/23/2015Zoster Vaccines (1 of 2)02/05/2026HIB VaccinesAged OutNo longer eligible based on patient's age to complete this topicHPV VaccinesAged OutNo longer eligible based on patient's age to complete this topicIPV VaccinesAged OutNo longer eligible based on patient's age to complete this topicMeningococcal B VaccineAged OutNo longer eligible based on patient's age to complete this topicMeningococcal VaccineAged OutNo longer eligible based on patient's age to complete this topicPneumococcal Vaccine: Pediatrics (0 to 5 Years) and At-Risk Patients (6 to 64 Years)Aged Out No longer eligible based on patient's age to complete this topicRotavirus VaccinesAged OutNo longer eligible based on patient's age to complete this topic Care Teams Team MemberRelationshipSpecialtyStart DateEnd Date Eros Lopez PA [address] [place] [id number] PCP - GeneralPhysician Zxxhbdvln87/17/25
--- OUTSIDE RECORDS SUMMARY | 2025-07-25 21:08 | XMS_ITS | Clinical Summary ---
Author Organization [facility] Address [address] [place] [address] Phone Care Team Providers Care Health Analyst Name Role Phone LillianaAsher bryant Primary Care Provider + [phone] Allergies Active AllergyReactionsCriticalityNoted XyefAsbgneneZjnifnwnqiGkbtsxhw77/05/2021 Medications MedicationSigDispense QuantityRefillsLast FilledStart DateEnd DateStatus atenolol [...] Active Problems ProblemNoted DateDiagnosed DateSVT (supraventricular tachycardia)07/16/2024Sinus yqgbqopuqvg15/13/2024MI 40.0-44.9, adult07/16/2024Former zixzrc1907/16/2024 Family History Medical HistoryRelationNameCommentsStrokeBrotherBipolar disorderFatherCancer FatherHypotensionFatherCancerMaternal GrandmotherDiabetes type IMaternal GrandmotherAneurysmMotherStrokeMotherHeart failureOtherCancerPaternal GrandmotherDiabetes type IPaternal GrandmotherStrokeSisterRelationNameStatus CommentsBrotherFatherMaternal GrandmotherMotherOtherPaternal GrandmotherSister Social History Tobacco UseTypesPacks/DayYears UsedDateSmoking Tobacco: FormerCigarettes Smokeless Tobacco: Never Tobacco Cessation:Counseling Given: Yes Alcohol UseStandard Drinks/WeekCommentsYes0 (1 standard drink = 0.6 oz pure alcohol)occCommentsUnknownSex and Gender InformationValueDate Recorded Sex Assigned at BirthNot on fileLegal JicTpxymc79/26/2022 5:33 PM ESTGender IdentityNot on fileSexual OrientationNot on file Last Filed Vital Signs Vital SignReadingTime TakenCommentsBlood Ayrlzfyt857/7007/16/2024 9:52 AM EST Tbnbu680807/16/2024 9:51 AM EIDLbmuoodbeai38.3 ??C (97.3 ??F)05/10/2020 6:18 AM EDTRespiratory Xtjy8486 6:18 AM EDTOxygen Saturation--Inhaled Oxygen Concentration--Zxqvzn965 kg (290 lb)07/16/2024 9:51 AM IPBHfidtj950.3 cm (5' 9 ) 07/16/2024 9:51 AM ESTBody Mass Index42.8307/16/2024 9:51 AM EST Plan of Treatment Health MaintenanceDue DateLast DoneCommentsCT Vvydqzoywjqz1976FIT-DNA (Cologuard)1976FIT1976HIV Ygynehzmv1976Lipid Panel1976 Hnawwilftfycc1976TSH Level1976MMR Vaccines (1 of 1 - Standard series)02/05/1977Diabetes Agskieydy40/05/1994Hepatitis C Afitvfeea71/05/1994 Cervical Cancer Lgmbeptmp75/05/1997HPV/Tkkzui2702/05/1997Pap Smear02/05/1997 DTaP/Tdap/Td Vaccines (1 - Tdap)02/05/1998Hepatitis B Vaccines (2 of 3 - Hep B Twinrix 3-dose series)Mammogram/04/2023, 01/10/2023, 01/10/2023Yearly Adult Ojiewfmb71/27/175963/, 10/22/2022 COVID-19 Vaccine (1 - season)2025Influenza Vaccine (#1)2025 03/24/2017, 05/23/2015Zoster Vaccines (1 of 2)7769Ntvlfumaxil98/29/2034 12/01/2023olorectal Cancer Xretepoin24/29/2034Hepatitis A VaccinesAged Out 05/06/2006No longer eligible based [...] Asher Mae DO [address], [facility] [place] [address] PCP - GeneralFamily Rpfbpfmn92/13/24
[2025-07-25 21:22] LABS: Alanine Aminotransferase 30 U/L (14-59); Albumin Globulin Ratio 1.1; Albumin Level 3.8 g/dL (3.4-5.0); Alkaline Phosphatase 81 U/L (46-116); Anion Gap 11.6; Aspartate Amino Transferase 14 U/L (15-37); Blood Urea Nitrogen 19.0 mg/dL (7.0-18.0); Calcium 9.0 mg/dL (8.5-10.1); Carbon Dioxide 30.2 mmol/L (21.0-32.0); Chloride 106 mmol/L (98-107); Estimated GFR (African America >60 (>=60 mL/min/1.73m^2); Estimated GFR (Non-African Ame >60 (>=60 mL/min/1.73m^2); Globulin 3.5 g/dL; Glucose 100 mg/dL (74-106); Lipase 46.0 U/L (16.0-77.0); Magnesium 2.2 mg/dL (1.8-2.4); Potassium 3.8 mmol/L (3.5-5.1); Sodium 144 mmol/L (136-145); Total Protein 7.3 g/dL (6.4-8.2)
--- NOTE | 2025-07-25 22:28 | PC.NURSE ---
patient to ed in [facility]. states last time was two weeks ago. 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 patient immediately brought back to room. fast patches placed on and zoll monitor and ekg obtained. PA at bedside. with physician.
== END 2025-07-25 22:35 | disposition home or self-care (01) ==
PROVIDERS: Physician Assistant; Emergency Provider Emergency Medicine
DX: I47.10 Supraventricular tachycardia, unspecified (principal); R06.00 Dyspnea, unspecified; Z87.891 Personal history of nicotine dependence
CPT/HCPCS: 36415; 80053; 83690; 83735; 85025; 93005; 96374; 99284